=== PATIENT | male | born 1950 | race Caucasian/White ===

== ENCOUNTER 2025-02-28 02:26 | Observation (INO) | payer MEDICARE, OTHER, SELFPAY ==
[2025-02-28] VITALS (16 sets, daily range): BP systolic 89–102; BP diastolic 52–59; PULSE 80–100; RESP 16–20; TEMP 36.7–37.4; O2SAT 90–100; BMI 27.8
--- NOTE | 2025-02-28 02:32 | PC.NURSE ---
pt arrived to floor via stretcher from ED at 0231.
--- NOTE | 2025-02-28 03:13 | CA_ITS ---
APPROVED REPORT EXAM: Comprehensive 2D, Doppler, and color-flow Echocardiogram Male Infertility Specialist: BRITTANY Thomas, RVS Ht: 5 ft 8 in Wt: 183lbs BSA: 1.97 BP: 109/70 mmHg Indications: Pneumonia, CAD-CABG, S/P Fall, HTN,Lung CA, DINA Echo Enhancing Agent Comments: TDS: Patient sensitivity due Fall/ supine throughout exam 2D Dimensions IVSd 1.25 cm M: 0.6-1.2 LVEF (Visual) 50.50 % PWd 1.37 cm M: 0.6 - 1.2 LA Volume 58.60 mL LVDd 5.29 cm M: 4.2 - 5.9 LA Volume Index 29.785855 mL/m2 (M/F) 16-34 LVDs 3.92 cm M: 2.5 - 4.0 Left Atrium 4.52 cm M: 3.0 - 4.0 M-Mode Dimensions RVDd 1.57 cm (0.9-2.6) LA Diam 5.41 cm (1.9-4.0) LVDd 6.16 cm (3.5-5.7) LVDs 4.14 cm (3.5-5.7) IVSd 1.21 cm (0.6-1.1) PWd 1.13 cm (0.6-1.1) EF (Teich) 57.70% EPSs 1.05 cm FS 30.90% EDV (Teich) 179.30 mL TAPSE 1.12 (<1.7) ESV (Teich) 75.90 mL LV Diastology E Decel Time 197 (160-240 msec) E/A Ratio 0.72 MED A' 12.80 cm/s LAT A' 10.00 cm/s Aortic Valve BRYAN Index 0.90 cm2/m2 AoV Peak Jhon. 195.0 (50-130 cm/s) AO Peak GR. 15.20 mmHg AO Mean GR. 7.50 (<5 mmHg) AO VTI 32.0 (18-25 cm) BRYAN (VTI) 1.82 (2.5-4.5 cm2) Mitral Valve MV A Velocity 110.0 (40-130 cm/s) E/A Ratio 0.72 Tricuspid Valve TR P. Velocity 271.00 cm/s RAP Estimate 10.00 mmHg RVSP 39.40 mmHg Left Ventricle The left ventricle is normal size. Left ventricular systolic function is mildly reduced. There is increased left ventricular wall thickness. There is mild global hypokinesis present. There is moderate hypokinesis of the inferior and inferoseptal LV samano. Grade 1 diastolic dysfunction is present. LVEF is 45% Right Ventricle The right ventricle is normal size. The right ventricular systolic function is normal. Atria The left atrium is mildly dilated. The right atrium is mildly dilated. There is no color Doppler evidence of interatrial shunt. Aortic Valve The aortic valve is mildly thickened. There is no hemodynamically significant aortic valvular stenosis. Trace aortic regurgitation is present. Mitral Valve The mitral valve is mildly thickened. No evidence of mitral valve stenosis. Mild mitral regurgitation is present. Tricuspid Valve The tricuspid valve leaflets are thin and pliable. Mild tricuspid regurgitation. RVSP is 25-30 mmHg. Pulmonic Valve The pulmonary valve is grossly normal in structure. Trace pulmonic valve regurgitation is present. Great Vessels The aortic root is normal in size. IVC is normal in size and collapses >50% with inspiration. Pericardium There is no pericardial effusion. Other Information Study Quality: Fair Conclusion Mildly reduced LV systolic function (LVEF 45%). Moderate hypokinesis of the inferior and inferoseptal LV samano. Mild biatrial dilation. Mild MR, mild TR. Electronically signed by : Rachell Lopez MD 02/28/2025 15:46:01
--- NOTE | 2025-02-28 03:16 | XR_ITS ---
PROCEDURE INFORMATION: Exam: XR Chest Exam date and time: 02/28/2025 3:29 AM Age: 74 years old Clinical indication: Shortness of breath; HX of lung CA and surgery on right side; Additional info: SOB TECHNIQUE: Imaging protocol: Radiologic exam of the chest. Views: 1 view. COMPARISON: No prior studies were available at the time of this dictation. FINDINGS: Lungs: There is diminished aeration of the right lung field and evidence of prior right upper lobe pulmonary resection with apical opacity, mid to upper lung field suture line and right hilar surgical clips. Without comparison images, the chronicity of findings is unclear. Pleural spaces: Above-described right apical pleural thickening is likely postsurgical. No intrapleural air. Heart/Mediastinum: Cardiac silhouette not enlarged. Coronary artery calcification or stent. Rightward mediastinal displacement likely secondary to volume loss. Bones/joints: No acute fracture. Sternotomy wires. Degenerative disc disease. IMPRESSION: Probable right upper lobectomy postsurgical changes with right lung field volume loss. Can not exclude additional underlying component of increasing airspace consolidation or opacity. If comparison images become available, we would be happy to review them.
--- NOTE | 2025-02-28 03:20 | P.HP_ITS ---
<Statement entered by Darnell Woods MD - 03/01/25 15:10> Personally evaluated patient and agree with plan of care as outlined by the TELEVISION EQUIPMENT OPERATOR. History of Present Illness *Admission Date: 02/28/25 *Reason for visit:: Fall *History of present illness: This is a 74-year-old male who has a past medical history significant for heart disease, hypertension, coronary artery disease status post coronary artery bypass graft in 2014 with four-vessel involvement, obstructive sleep apnea, lung cancer status post right upper lobe lobectomy who presents from [facility] as a result of elevated troponin. Patient presented to [facility] due to a fall and during his evaluation while in [facility] he was noted to have upward trending troponins. His EKG without new findings of ST segment elevation or depression. Initially, patient was going to be transferred to his primary automatic tire tester at [facility] but they had no beds with telemetry; as a result, he was transition to [facility] for further management. During my evaluation of the patient, patient states he tripped and fell at home. Patient states he tripped over his feet and was unable to get up. He reports that he fell at approximately 1700 hrs. yesterday. He states he crawled to his front door and there was no one outside. Eventually after 4 hours (2100 hrs.), patient was able to get to his phone and call for help. He states he lives with his daughter and she was not home. Patient states he did not pass out just felt and was too weak to get up. He does complain of some left-sided rib pain and imaging obtained at [facility] shows patient has seventh rib fracture. Moreover, ER provider reports that CT scan findings showed a pneumonia. Per my independent read of the radiologist report it states he has a consolidation in the right Frederick healer posterior area favoring surgical removal. Patient does have a history of right upper lobe lobectomy due to lung cancer. He is currently denying any chest pain, lightheadedness, dizziness, near-syncope, syncope, blurred vision, double vision, headache, upper extremity weakness, lower extremity weakness, nausea, vomiting, shortness of breath, or dyspnea. Additional pertinent vitals obtained at [facility] include a white blood cell count of 13.5, neutrophils 84.7%, BUN 24, creatinine 1.4, troponin of 70 and then 140. EKG per my independent review shows a sinus tachycardia, QTc of 455, possible left ventricular hypertrophy, right axis deviation, and no ST segment or depression noted. [facility] Disclaimer: The information contained in this section may have been updated after the patient was seen, as this information can be updated by other users. Medical History (Updated 02/28/25 @ 03:29 by Juan Clark APRN) Rib fracture DINA (obstructive sleep apnea) Hypertension Heart disease Lung cancer Falls Surgical History (Updated 02/28/25 @ 02:41 by Renato Knutson RN) Stented coronary artery Hx of CABG S/P cholecystectomy S/P lobectomy of lung Social History Smoking Status: Unknown if ever smoked alcohol intake: never current occupational status: unemployed Travel in the last 8 weeks?: None Other Medical History Have you received the Flu Vaccine for this season: No Have you received the Pneumonia Vaccine: No Review of Systems Review of Systems Review of systems:: pertinent systems reviewed and negative unless documented below Constitutional Constitutional: Reports frequent falls Eyes Eyes: Reports system reviewed and no additional complaints, except as documented ENT Ears, Nose, Mouth, and Throat: Reports system reviewed and no additional complaints, except as documented *Cardiovascular Cardiovascular: Reports system reviewed and no additional complaints, except as documented *Respiratory Respiratory: Reports system reviewed and no additional complaints, except as documented *Gastrointestinal Gastrointestinal: Reports system reviewed and no additional complaints, except as documented *Genitourinary Genitourinary: Reports system reviewed and no additional complaints, except as documented *Musculoskeletal Musculoskeletal: Reports system reviewed and no additional complaints, except as documented Integumentary/Breasts Skin/Breast: Reports system reviewed and no additional complaints, except as documented *Neurologic Neurologic: Reports system reviewed and no additional complaints, except as documented and Reports frequent falls Psychiatric Psychiatric: Reports system reviewed and no additional complaints, except as documented Endocrine Endocrine: Reports system reviewed and no additional complaints, except as documented Hematologic/Lymphatic Hematologic/Lymphatic: Reports system reviewed and no additional complaints, exc ept as documented Allergic/Immunologic Allergic/Immunologic: Reports system reviewed and no additional complaints, except as documented Meds Home Medications and Allergies Home Medications ?Medication ?Instructions ?Recorded ?Confirmed ?Type aspirin 81 mg tablet,delayed 81 mg PO DAILY 02/28/25 0 02/28/25 History release atorvastatin 80 mg tablet 80 mg PO HS 02/28/25 5 History folic acid 1 mg tablet 1 mg PO DAILY 02/28/2502/28 History levocetirizine 5 mg tablet 5 mg PO HS 02/28/25 5 History methotrexate sodium 2.5 mg tablet 25 mg PO WEEKLY 02/0102/28/25 History metoprolol tartrate 25 mg tablet 12.5 mg PO BID 02/28/25 History nitroglycerin 0.4 mg sublingual 0.4 mg sublingual N EEDED PRN 02/28/25 02/28/25 History tablet Chest Pain sulfamethoxazole 800 1 tab PO BID 02/28/25 History mg-trimethoprim 160 mg tablet New Prescriptions to Start Prescriptions: Allergies Allergy/AdvReac Type Severity Reaction Status Date / Time No Known Allergies Allergy Verified 02/28/25 02:41 Exam Data for Last 24 hours Vital signs and Labs for Last 24 Hours: O2 Del Method Room Air 02/28/25 03:00 I & O for Last 24 hours: Intake & Output 02/25/25 02/26/25 02/27/25 02/28/25 23:59 23:59 23:59 23:59 Weight 83.1 kg Constitutional Constitutional: no acute distress and cooperative *Routine HEENT Exam Head: Present normocephalic and atraumatic Eye: Present EOMI ENT: Present mucous membranes moist *Routine Neck Exam Neck: Present supple, full ROM and trachea midline Routine Chest/Breast/Axilla Exam Chest wall: Present tenderness *Routine Respiratory Exam Respiratory: Present CTA bilaterally, normal respiratory effort, able to speak in complete sentences and symmetric chest movement *Routine Cardiovascular Exam Cardiovascular: Present RRR, Normal S1 and Normal S2 *Routine Abdominal Exam Abdominal: Present soft and normoactive bowel sounds *Routine Rectal Exam Rectal:: deferred *Routine Genitalia Exam Genitalia:: deferred *Routine Extremities Exam Extremities: Present full ROM, pulses intact and normal capillary refill Routine Back/Spine/Pelvis Exam Back/Spine: Present full ROM *Routine Skin Exam Skin: Present intact, dry, warm and normal turgor *Routine Neurological Exam Neurological: Present alert, oriented X3, CN II-XII intact and moving all extremities Routine Psychiatric Exam Psychiatric: Present normal affect, normal thought process, cooperative, good insight and good judgment H&P: Result Impressions This is a 74-year-old male who presents from [facility] after he sustained a fall at home. Patient has known coronary artery disease with prior coronary artery bypass and graft with four-vessel involvement and has rising troponins with no evidence of ST segment [place] which was concerning for NSTEMI. CT scan findings were initially read as possible pneumonia in the right upper lobe. Assessment and Plan *Assessment and plan (1) Pneumonia: Status: Acute Qualifiers: Pneumonia type: due to unspecified organism Laterality: right Lung location: upper lobe of lung Qualified Code(s): J18.9 - Pneumonia, unspecified organism Category: Medical Code(s): J18.9 - Pneumonia, unspecified organism (2) NSTEMI (non-ST elevated myocardial infarction): Status: Acute Category: Medical Code(s): I21.4 - Non-ST elevation (NSTEMI) myocardial infarction (3) Chest wall trauma: Status: Acute Category: Medical Code(s): S29.9XXA - Unspecified injury of thorax, initial encounter (4) Leukocytosis: Status: Acute Qualifiers: Leukocytosis type: unspecified Qualified Code(s): D72.829 - Elevated white blood cell count, unspecified Category: Medical Code(s): D72.829 - Elevated white blood cell count, unspecified Plan Assessment: NSTEMI - Patient did receive 325 mg of aspirin x 1 - Will continue 81 mg of aspirin daily -Will consult cardiology - Will obtain stat troponin and if still upward trending will therapeutically dosed patient with Lovenox - Obtain 2D echo - If troponin continues to trend upward will also obtain repeat EKG Pneumonia: Most likely community-acquired Leukocytosis with left shift - Not sure that patient has pneumonia. CT scan findings are showing a possible right Frederick heel R posterior consolidation is most likely consistent with surgical removal - Will continue 1 g Rocephin IV daily coupled with 250 mg azithromycin daily; patient received a dose of Rocephin and 500 mg azithromycin while at [facility] - Will obtain procalcitonin - Will repeat patient's chest x-ray -If there is no pneumonia more than likely patient's leukocytosis is in the setting of neutrophilia from trauma and more than likely will downward trend in 8 hours Mechanical fall with minor trauma - Patient did sustain 7th rib fracture -There is no evidence of flail chest, so we will treat rib fracture conservatively -Fall precautions -Physical therapy -Occupational Therapy -Will give 2 mg of morphine IV push every 4 hours as needed severe pain and 5 mg [place] p.o. every 4 hours bear moderate pain -Incentive spirometer every 4 hours while awake Plan: Admit patient to the MedSurg unit on telemetry Daily weight Saline lock Vital signs every 4 hours Keep patient n.p.o. until evaluated by automatic tire tester CBC/BMP daily Obtain CMP, CPK, lactic acid, procalcitonin, magnesium, and trend troponins every 6 hours x 2 40 mg Lovenox subcu daily for DVT prophylaxis 4 mg Zofran IV push every 8 hours. Nausea vomiting/blood cultures x 2 DNI I will discuss this case with attending physician Dr. Woods and a look forward to more input
[2025-02-28 06:46] LABS: Hematocrit 41.8 % (42.0-52.0); Hemoglobin 14.1 g/dL (14.1-18.0); Immature Granulocytes % 1.8 %; Mean Corpuscular HGB Conc 33.7 g/dL (31.8-35.4); Mean Corpuscular Hemoglobin 33.6 pg (27.0-31.2); Mean Corpuscular Volume 99.5 fl (80-94); Nucleated Red Blood Cells % 0 %; Platelet Count 149 K/mm3 (142-424); Red Blood Count 4.20 M/mm3 (4.60-6.20); Red Cell Distribution Width-SD 53.1 fL; White Blood Count 12.5 K/mm3 (4.8-10.8)
[2025-02-28 07:01] LABS: Albumin Level 3.8 g/dl (3.5-5.0); Chloride 105 mmol/L (98-107); Potassium 4.3 mmoL/L (3.5-5.1); Sodium 136 mmol/L (136-145)
[2025-02-28 07:04] LABS: Alanine Aminotransferase 25 U/L (12-78); Albumin/Globulin Ratio 1.5 (1.1-1.8); Alkaline Phosphatase 69 U/L (38-126); Anion Gap 7.3 mEq/L (5-15); Aspartate Amino Transferase 47 U/L (17-59); Bilirubin,Total 0.8 mg/dl (0.2-1.3); Blood Urea Nitrogen 20 mg/dl (9-20); Calcium 8.3 mg/dl (8.4-10.2); Carbon Dioxide 28 mmol/L (22.0-30.0); Creatine Kinase 272 U/L (55-170); Creatinine Clearance Estimated 63 mL/min (50-200); Creatinine,Serum 1.20 mg/dl (0.66-1.25); Estimated Glomerular Filt Rate 59 ml/min (>60); GFR (African American) 71 ML/MIN (>60); Globulin 2.5 g/dL (1.3-3.2); Glucose 106 mg/dl (74-100); Magnesium 1.6 mg/dl (1.6-2.3); Total Protein,Serum 6.3 g/dl (6.3-8.2)
[2025-02-28 07:11] LABS: Troponin I 0.12 ng/ml (0.00-0.034)
[2025-02-28 07:46] LABS: Procalcitonin 0.233 ng/mL (0.0-2.0)
--- NOTE | 2025-02-28 08:04 | EXP.CARD.CON ---
History of Present Illness History of Present Illness Consult date: 02/28/25 Requesting physician: Darnell Woods Chief complaint: Trip and fall History of present illness: Cruz Wray is a 74-year-old white male with a past medical history of coronary artery disease status post bypass in 2013, hypertension, lung cancer status post right upper lobe lobectomy who presented from [facility] for elevated troponin. Patient reports he was in his usual state of health when he tripped and fell at home. He reports that he was too weak to be able to get up off of the floor. Eventually after 4 hours of being on the floor he was able to get to his phone and call for help. Imaging from [facility] shows a fracture to the seventh rib on the left side as well as CT scan findings concerning for pneumonia. High-sensitivity troponin was 70 and creatinine was 1.4. Patient usually sees cardiology at [facility] however he was transferred here due to no beds at [facility]. On examination patient is complaining of left rib pain with movement and palpation. He denies chest pain, dizziness, shortness of breath or weakness. Initial labs at [facility] are as follow: WBC 12.5, hemoglobin 14.1, sodium 136, potassium 4.3, creatinine 1.2, total CK2 172 and troponin 0.12. Repeat chest x-ray here shows a probable right upper lobectomy postsurgical changes with right lung field volume loss cannot exclude additional underlying component of increasing airspace consolidation or opacity. Echocardiogram is pending. [facility] Disclaimer: The information contained in this section may have been updated after the patient was seen, as this information can be updated by other users. Medical History (Updated 02/28/25 @ 03:29 by Juan Clark APRN) Rib fracture DINA (obstructive sleep apnea) Hypertension Heart disease Lung cancer Falls Surgical History (Updated 02/28/25 @ 02:41 by Renato Knutson RN) Stented coronary artery Hx of CABG S/P cholecystectomy S/P lobectomy of lung Social History (Updated 02/28/25 @ 03:36 by Juan Clark APRN) Smoking Status: Unknown if ever smoked alcohol intake: never current occupational status: unemployed Travel in the last 8 weeks?: None Review of Systems Review of Systems Review of systems:: pertinent systems reviewed and negative unless documented below Constitutional Constitutional: Reports frequent falls and Reports weakness *Neurologic Neurologic: Reports system reviewed and no additional complaints, except as documented, Reports frequent falls and Reports weakness Exam Data for Last 24 hours Vital signs and Labs for Last 24 Hours: Temp Pulse Resp BP Pulse Ox O2 Del Method 98.1 F 100 H 17 101/59 L 90 L Room Air 02/28/25 03:59 02/28/25 04:00 02/28/25 03:59 02/28/25 03:59 02/28/25 03:59 02/28/25 06:24 Laboratory Results - last 24 hr 02/28/25 06:20: WBC 12.5 H, RBC 4.20 L, Hgb 14.1, Hct 41.8 L, MCV 99.5 H, MCH 33.6 H, MCHC 33.7, RDW 14.7, Plt Count 149, MPV 10.3, Neut % (Auto) 78.1, Lymph % (Auto) 10.6, [place] % (Auto) 9.3, Eos % (Auto) 0.1, Baso % (Auto) 0.1, Neut # (Auto) 9.8 H, Lymph # (Auto) 1.3, [place] # (Auto) 1.2 H, Eos # (Auto) 0.0, Baso # (Auto) 0.0, Sodium 136, Potassium 4.3, Chloride 105, Carbon Dioxide 28, Anion Gap 7.3, BUN 20, Creatinine 1.20, Estimated Creat Clear 63, Estimated GFR 59, Est GFR ( Amer) 71, Glucose 106 H, Lactate 1.0, Calcium 8.3 L, Magnesium 1.6, Total Bilirubin 0.8, AST 47, ALT 25, Alkaline Phosphatase 69, Total Creatine Kinase 272 H, Troponin I 0.12 H, Total Protein 6.3, Albumin 3.8, Globulin 2.5, Albumin/Globulin Ratio 1.5, Procalcitonin 0.233 I & O for Last 24 hours: Intake & Output 02/25/25 02/26/25 02/27/25 02/28/25 23:59 23:59 23:59 23:59 Weight 183 lb 12.8 oz Constitutional Constitutional: no acute distress *Routine Respiratory Exam Respiratory: Present CTA bilaterally and symmetric chest movement *Routine Cardiovascular Exam Cardiovascular: Present RRR, Normal S1 and Normal S2 *Routine Abdominal Exam Abdominal: Present soft and normoactive bowel sounds; Absent tenderness *Routine Extremities Exam Extremities: Present full ROM and normal capillary refill; Absent edema *Routine Skin Exam Skin: Present intact, dry and warm Detailed Neck Exam: Thyroids Thyroid: Absent bruit Meds Home Medications and Allergies Home Medications ?Medication ?Instructions ?Recorded ?Confirmed ?Type aspirin 81 mg tablet,delayed 81 mg PO DAILY 02/28/25 02/28/25 History release atorvastatin 80 mg tablet 80 mg PO HS 02/28/25 02/28/25 History folic acid 1 mg tablet 1 mg PO DAILY 02/28/25 02/28/25 History levocetirizine 5 mg tablet 5 mg PO HS 02/28/25 02/28/25 History methotrexate sodium 2.5 mg tablet 25 mg PO WEEKLY 02/28/25 02/28/25 History metoprolol tartrate 25 mg tablet 12.5 mg PO BID 02/28/25 02/28/25 History nitroglycerin 0.4 mg sublingual 0.4 mg sublingual Q5MINP PRN Chest 02/28/25 02/28/25 History tablet Pain sulfamethoxazole 800 1 tab PO BID 02/28/25 02/28/25 History mg-trimethoprim 160 mg tablet New Prescriptions to Start Prescriptions: Allergies Allergy/AdvReac Type Severity Reaction Status Date / Time No Known Allergies Allergy Verified 02/28/25 02:41 Assessment and Plan *Assessment and plan (1) Leukocytosis: Status: Acute Qualifiers: Leukocytosis type: unspecified Qualified Code(s): D72.829 - Elevated white blood cell count, unspecified Category: Medical Code(s): D72.829 - Elevated white blood cell count, unspecified (2) Chest wall trauma: Status: Acute Category: Medical Code(s): S29.9XXA - Unspecified injury of thorax, initial encounter (3) NSTEMI (non-ST elevated myocardial infarction): Status: Acute Category: Medical Code(s): I21.4 - Non-ST elevation (NSTEMI) myocardial infarction (4) Pneumonia: Status: Acute Qualifiers: Laterality: right Lung location: upper lobe of lung Pneumonia type: due to unspecified organism Qualified Code(s): J18.9 - Pneumonia, unspecified organism Category: Medical Code(s): J18.9 - Pneumonia, unspecified organism Plan Coronary artery disease present Status post bypass NSTEMI Patient denies chest pain or shortness of breath. Elevated high-sensitivity troponin of 70-140 Troponin here 0.12 Echocardiogram is pending Continue aspirin and statin Mechanical fall Left rib pain and fracture Possible pneumonia Defer to hospitalist CV summary 02/28/2025: Echocardiogram is pending. Will proceed with left heart catheterization to further evaluate coronary artery disease.
--- NOTE | 2025-02-28 08:20 | HMH.PHAINT1 ---
Pharmacy Intervention Comments: MEDICATION RECONCILIATION COMPLETED ON PATIENT USING EXTERNAL FILL HISTORY FROM PHARMACY. -LINCOLN GARVIN, TJD
--- NOTE | 2025-02-28 08:59 | IR_ITS ---
APPROVED REPORT Patient Location: Inpatient PROCEDURES Left heart catheterization Left ventriculogram Selective coronary angiogram Selective engagement of the left internal mammary artery to the LAD Selective engagement of the saphenous vein graft to the circumflex artery Selective engagement of the saphenous vein graft to the right coronary artery INDICATION Acute non-ST elevation myocardial infarction, Syncope, History of coronary bypass surgery Informed consent was obtained prior to the procedure. COMPLICATIONS NONE Estimated Blood Loss: LESS THAN 10 ML TECHNIQUE One percent lidocaine used to anesthetize the right groin. The right femoral artery was accessed via the Seldinger technique and a 5 Italian sheath was placed in the right femoral artery. A JL 4, JR4 catheter were used to perform left heart catheterization, left ventriculogram selective coronary angiography as well as selective engagement of the 2 vein grafts and the left internal mammary artery. At the end of the procedure the patient was transferred to the postop holding area in stable condition for sheath removal. ANGIOGRAPHIC RESULTS The left main artery Normal The left anterior descending artery Has proximal and mid vessel 80% stenoses. It gives rise to a small first diagonal artery. There is competitive flow from the left internal mammary artery The circumflex artery Nondominant. Both 1st and 2nd obtuse marginal arteries are ostially occluded. A small true circumflex artery runs in the AV groove with no obtuse marginal arteries The right coronary artery Most likely dominant with proximal 70 and mid vessel 90% stenosis. That gives rise to an RV marginal branch which is accompanied by FLOWER II flow. The distal right coronary artery is subtotally occluded The HERRON ventriculogram reveals Ejection fraction 45% with inferior wall hypokinesis The left ventricular end-diastolic pressure 10 mmHg EATON to LAD widely patent Saphenous vein graft to the circumflex system is a skip graft. The first limb to the first obtuse marginal artery is widely patent as is the skip graft to the second obtuse marginal artery Saphenous to the posterior sending artery proximally occluded IMPRESSION Coronary artery disease as described above Inferior wall regional wall motion abnormality accompanied by occluded council right coronary artery and saphenous vein graft supplying the right coronary artery Reduced ejection fraction with regional wall motion abnormality Normal LVEDP Patent EATON to LAD Patent saphenous vein graft skipping to first and then second obtuse marginal artery PLAN 1. Standard therapy for ischemic heart disease 2. Recommend 30-day event monitor given the fall. This may still have been syncope 3. LDL less than 55 to be achieved with high intensity statin 4. Formal echocardiogram 5. Follow-up in cardiology clinic and consider loop recorder if clinically appropriate Electronically signed by : Arsen Corea MD 02/28/2025 13:00:51
--- NOTE | 2025-02-28 09:08 | PC.NURSE ---
Home Medications Cruz Wray aspirin 81 mg tablet,delayed release 81 mg PO DAILY 02/28/25 [History Confirmed 02/28/25] atorvastatin 80 mg tablet 80 mg PO HS 02/28/25 [History Confirmed 02/28/25] folic acid 1 mg tablet 1 mg PO DAILY 02/28/25 [History Confirmed 02/28/25] levocetirizine 5 mg tablet 5 mg PO HS 02/28/25 [History Confirmed 02/28/25] methotrexate sodium 2.5 mg tablet 25 mg PO WEEKLY 02/28/25 [History Confirmed 02/28/25] metoprolol tartrate 25 mg tablet 12.5 mg PO BID 02/28/25 [History Confirmed 02/28/25] nitroglycerin 0.4 mg sublingual tablet 0.4 mg sublingual Q5MINP PRN Chest Pain 02/28/25 [History Confirmed 02/28/25] sulfamethoxazole 800 mg-trimethoprim 160 mg tablet 1 tab PO BID 02/28/25 [History Confirmed 02/28/25] Active Medications Acetaminophen (Acetaminophen 325mg Tab) 650 mg PO Q4HP PRN PRN Reason: Fever or Mild Pain (1-3) Stop: 03/30/25 03:12 Hydrocodone Bitart/Acetaminophen (Hydrocodone/Apap 5/325 Mg Tablet) 1 tab PO Q4HP PRN PRN Reason: Mild to Moderate Pain (1-6) Stop: 03/30/25 03:12 Aspirin (Aspirin 81mg Chewable Tablet) 81 mg PO DAILY [facility] Stop: 03/31/25 08:59 Diazepam (Diazepam 5mg Tablet) 5 mg PO ONCE PRN PRN Reason: Anxiety Stop: 02/28/25 20:53 Enoxaparin Sodium (Enoxaparin 40mg/0.4ml Syringe) 40 mg SUBCUT DAILY [facility] Stop: 03/30/25 08:59 Last Admin: 02/28/25 09:04 Dose: Not Given Ceftriaxone Sodium 1 gm/ (Sodium Chloride) 50 mls @ 100 mls/hr IV Q24H [facility] Stop: 03/11/25 08:59 Azithromycin 500 mg/ Sodium (Chloride) 250 mls @ 250 mls/hr IV Q24H [facility] Stop: 03/11/25 08:59 Morphine Sulfate (Morphine 2mg/Ml Syringe) 2 mg IV Q4HP PRN PRN Reason: Severe Pain (7-10) Stop: 03/30/25 03:12 Ondansetron HCl (Ondansetron 4mg/2ml Vial) 4 mg IV Q8HP PRN PRN Reason: Nausea Stop: 03/30/25 03:12 Sodium Chloride (Sodium Chloride 0.9% 10ml Flush Syringe) 10 ml IV NEEDED PRN PRN Reason: Maintain IV Site Stop: 03/30/25 03:12 Sodium Chloride (Sodium Chloride 3% 15ml Neb) 3 ml IH ONCE PRN PRN Reason: INDUCE SPUTUM COLLECTION Stop: 03/30/25 07:48 Sodium Chloride (Sodium Chloride 0.9% 10ml Vial) 10 ml IV NEEDED PRN PRN Reason: to Dilute Lorazepam inj Stop: 03/30/25 08:52
--- NOTE | 2025-02-28 09:18 | HMH.OTEV ---
OT Inpatient Evaluation Rehab OT IP Evaluation Start: 02/28/25 03:13 Freq: ONCE Status: Active Protocol: Document 02/28/25 09:14 MATEO (Rec: 02/28/25 09:17 [place] [id number]) Rehab OT IP Assessment Subjective History Pt oriented x 2 on arrival. Pt agreeable to engage in therapy evaluation. Pt admitted on 02/28/25 due to fall at home and PNA. History and physical: This is a 74-year-old male who has a past medical history significant for heart disease, hypertension, coronary artery disease status post coronary artery bypass graft in 2013 with four-vessel involvement, obstructive sleep apnea, lung cancer status post right upper lobe lobectomy who presents from [facility] as a result of elevated troponin. Patient presented to [facility] due to a fall and during his evaluation while in [facility] he was noted to have upward trending troponins. His EKG without new findings of ST segment elevation or depression. Initially, patient was going to be transferred to his primary decision unit rn at [facility] but they had no beds with telemetry; as a result , he was transition to [facility] for further management. During my evaluation of the patient, patient states he tripped and fell at home. Patient states he tripped over his feet and was unable to get up. He reports that he fell at approximately 1700 hrs. yesterday. He states he crawled to his front door and there was no one outside. Eventually after 4 hours (2100 hrs.), patient was able to get to his phone and call for help. He states he lives with his daughter and she was not home. Patient states he did not pass out just felt and was too weak to get up. He does complain of some left -sided rib pain and imaging obtained at [facility] shows patient has seventh rib fracture. Moreover, ER provider reports that CT scan findings showed a pneumonia. Per my independent read of the radiologist report it states he has a consolidation in the right Frederick healer posterior area favoring surgical removal. Patient does have a history of right upper lobe lobectomy due to lung cancer. He is currently denying any chest pain, lightheadedness, dizziness, near- syncope, syncope, blurred vision, double vision, headache, upper extremity weakness, lower extremity weakness, nausea, vomiting, shortness of breath, or dyspnea. Additional pertinent vitals obtained at [facility] include a white blood cell count of 13.5 , neutrophils 84.7%, BUN 24, creatinine 1.4, troponin of 70 and then 140. EKG per my independent review shows a sinus tachycardia, QTc of 455, possible left ventricular hypertrophy, right axis deviation, and no ST segment or depression noted. Subjective Prior to being in the hospital, pt lived with his daughter. Pt claims he is normally independent with all ADLs. He is dependent upon his daughter for completion of all IADLs. He does not use a rolling walker or cane during functional transfers. Pt is left home alone while daughter works. Pt claims he still drives. Objective Patient Orientation Person,Birthday Right Upper Min Limitation <25% Extremity Gross ROM Left Upper Extremity Min Limitation <25% Gross ROM Shoulder ROM Muscle Weakness Limitations Elbow ROM Muscle Weakness Limitations Wrist Limitations of Muscle Weakness Range of Motion Bed Mobility bed mobility-scooting,bed mobility - supine/sit Assist Level Maximum x 2 (75% assist) Transfer Training Sit/Stand/Pivot Transfer Assist Level Maximum x 2 (75% assist) Rehab OT IP prob,goals,plan Problems Date of Evaluation: 02/28/25 OT IP Problems Bed Mobility,Transfers,Balance,Self care Rehab Potential Rehab Potential Good Equipment Needs Assistive Devices Rolling / Wheeled Walker Plan OT intervention Plan Bed Mobility,Transfers,Balance,Self care,Safety, Therapeutic Exercise OT Plan Frequency Daily Duration LOS Discharge Goals Bed Mobility Ability Assistance x1 Sit to Stand Chair Maximum x 1 (75% assist) Transfer Ability Chair Transfer Maximum x 1 (75% assist) Ability Chair Transfer Sit to/from Ambulatory Technique Chair Transfer Rolling Walker Assistive Devices Lower Body Dressing Moderate Assistance Ability Upper Body Dressing Minimal Assistance Ability Performing Toilet Minimal Assistance Hygiene Ability Overall Commode/ Maximum Assistance Toilet Transfer Ability Commode/Toilet Sit to/from Ambulatory Transfer Technique Discharge Plan OT Discharge Plan Pt will continue to be seen for OT services while at [facility]. At this time, pt would benefit most from short term rehab at [facility] following discharge. Continued skilled therapy is important in order for patient to improve strength, safety, endurance, ADL independence, and functional transfers to reach OF. Eval Complexity Eval Charge Codes 84983 - Moderate Complexity PHYSICIAN CERTIFICATION: I certify the specified therapy services for Cruz Ray Wray are required, authorized, and reviewed every 30 days.
--- NOTE | 2025-02-28 09:20 | HMH.PTEV ---
Physical Therapy Evaluation Rehab PT IP Evaluation Start: 02/28/25 03:13 Freq: ONCE Status: Active Protocol: Document 02/28/25 09:00 OLYA (Rec: 02/28/25 09:20 OLYA [id number]) Subjective/History History History Per H&P: This is a 74-year-old male who has a past medical history significant for heart disease, hypertension, coronary artery disease status post coronary artery bypass graft in 2013 with four-vessel involvement, obstructive sleep apnea, lung cancer status post right upper lobe lobectomy who presents from [facility] as a result of elevated troponin. Patient presented to [facility] due to a fall and during his evaluation while in [facility] he was noted to have upward trending troponins. His EKG without new findings of ST segment elevation or depression. Initially, patient was going to be transferred to his primary regional manager at [facility] but they had no beds with telemetry; as a result , he was transition to [facility] for further management. During my evaluation of the patient, patient states he tripped and fell at home. Patient states he tripped over his feet and was unable to get up. He reports that he fell at approximately 1700 hrs. yesterday. He states he crawled to his front door and there was no one outside. Eventually after 4 hours (2100 hrs.), patient was able to get to his phone and call for help. He states he lives with his daughter and she was not home. Patient states he did not pass out just felt and was too weak to get up. He does complain of some left -sided rib pain and imaging obtained at [facility] shows patient has seventh rib fracture. Moreover, ER provider reports that CT scan findings showed a pneumonia. Per my independent read of the radiologist report it states he has a consolidation in the right Frederick healer posterior area favoring surgical removal. Patient does have a history of right upper lobe lobectomy due to lung cancer. He is currently denying any chest pain, lightheadedness, dizziness, near- syncope, syncope, blurred vision, double vision, headache, upper extremity weakness, lower extremity weakness, nausea, vomiting, shortness of breath, or dyspnea. Additional pertinent vitals obtained at [facility] include a white blood cell count of 13.5 , neutrophils 84.7%, BUN 24, creatinine 1.4, troponin of 70 and then 140. EKG per my independent review shows a sinus tachycardia, QTc of 455, possible left ventricular hypertrophy, right axis deviation, and no ST segment or depression noted. Subjective Subjective Pt oriented to name and bday. Pt reports he lives with his daughter in a single-story home with 1 HANK. Pt is normally IND with functional mobility without AD use. Pt still driving. New diagnosis of No cancer in past 12 months? [facility] How much help from another person do you currently need... Turning from your A lot back to your side while in a flat bed without using bedrails? Moving from lying on A lot back to sitting on the side of a flat bed without using bedrails? Moving to and from a A lot bed to a chair ( including a wheelchair)? Standing up from a A lot chair using your arms? (e.g., wheelchair, bedside chair) Walking in hospital A lot room? Climbing 3-5 steps A lot with a railing? Mobility Score 12 Mobility Level [facility] Mobility 4 Move to chair/commode Mobility Calculator Rehab PT IP Eval Objective Appearance Patient Behavior Appropriate,Cooperative Patient Orientation Person,Situation Difficulty following mild instructions Speech Pattern Soft-Spoken Ambulation Patient Able to No Ambulate Balance Ability to Arise Able, uses arms to help Sitting Balance Steady, safe Standing Balance Unsteady Dynamic Sitting Good Balance Ability Dynamic Standing Poor Balance Ability Transfers Bed Transfer Ability Maximum x 2 (75% assist) Sit to Stand Bed Maximum x 2 (75% assist) Transfer Ability Rehab PT IP prob,goals,plan Problems Date of Evaluation: 02/28/25 PT IP Problems Bed Mobility,Transfers,Gait,Balance,Self care,Safety Rehab Potential Rehab Potential Good Plan PT Intervention Plan Bed Mobility,Transfers,Gait,Balance,Self care,Safety, Therapeutic Exercise Other Intervention 1-2 times Plan PT Plan Frequency Daily Duration LOS Discharge Goals Bed Transfer Ability Moderate x 1 (50% assist) Sit to Stand Chair Moderate x 1 (50% assist) Transfer Ability Discharge Plan PT Discharge Plan Initial physical therapy evaluation performed. Patient presents below baseline at this time in functional mobility, transfers, and strength. Pt not safe to return home at this time d/t current level of functional mobility. PT recommending inpatient rehabilitation placement upon d/c from [facility]. Pt would benefit from skilled PT while at [facility] to prevent further functional decline and maximize safety with mobility. Eval Complexity Eval Charge Codes 76456 - Moderate Complexity PHYSICIAN CERTIFICATION: I certify the specified therapy services for Cruzwes Cohenris are required, authorized, and reviewed every 30 days.
[2025-02-28 10:01] LABS: Thyroid Stimulating Hormone 0.64 uIU/mL (0.465-4.68)
--- NOTE | 2025-02-28 10:11 | PC.NURSE ---
Pt. off the floor to record label intern.
[2025-02-28 10:20] LABS: Vitamin B12 711 pg/mL (239-931)
[2025-02-28 10:37] LABS: Folate 9.68 ng/mL
[2025-02-28] MEDS: HEPARIN 1,000 UNITS/500ML NS (CATH LAB) 3000 UNIT IV (10:40)
[2025-02-28] MEDS: LIDOCAINE 1% 10ML MDV 10 ML IJ (10:40)
[2025-02-28] MEDS: 0.9 % SODIUM CHLORIDE 500 ML 25 ML IV (10:41)
[2025-02-28] MEDS: MIDAZOLAM HCL 1MG/ML 5ML VIAL 1 MG IV (10:52)
[2025-02-28] MEDS: FENTANYL 100MCG/2ML VIAL 50 MCG IV (10:53)
--- NOTE | 2025-02-28 11:22 | PC.NURSE ---
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
--- NOTE | 2025-02-28 11:49 | SW/DCPLANNER ---
Addendum entered by Mely Merino 02/28/25 15:26: [facility] has accepted patient. Gosia BRITTNI Flower Cheniller Addendum entered by Mely Merino 02/28/25 14:11: Spoke with patient regarding home health services once he is medically stable and ready for discharge. Patient stated that he is interested and that he does not have a preference in what agency i send his information to. I faxed the patient's information to [facility] and will update once i hear back. Gosia BRITTNI Flower Cheniller Addendum entered by Roeslia Flynn 02/28/25 13:52: Patient/family have decided to return home w/ home health services. I have updated Tanya pike/ Ophelia Gage. CM will follow up w/ patient and family regarding home health services. Addendum entered by Roselia Flynn 02/28/25 12:35: [facility] has accepted this patient. I have updated patient, family and Dr Woods. Original Note: I spoke w/ patient and his daughter regarding plans once medically stable for discharge. PT/OT evaluated patient and recommended SNF level of care. I explained to patient and his daughter that placement is recommended but private pay would be required. Patient is agreeable to private pay placement and prefers [facility]. I will fax patient information to Tanya pike/ Ophelia Gage this AM. Patient also stated that if [facility] is unable to accept he would be agreeable to [place]. Per MD patient is medically stable for discharge today. I will continue to follow up.
[2025-02-28] MEDS: IOPAMIDOL-370 (76%);100ML BOTTLE 40 ML IV (12:30)
--- NOTE | 2025-02-28 13:08 | EXP.DC.SUM ---
General Admission date:: 02/28/25 HPI HPI HPI: This is a 74-year-old male who has a past medical history significant for heart disease, hypertension, coronary artery disease status post coronary artery bypass graft in 2014 with four-vessel involvement, obstructive sleep apnea, lung cancer status post right upper lobe lobectomy who presents from [facility] as a result of elevated troponin. Patient presented to [facility] due to a fall and during his evaluation while in [facility] he was noted to have upward trending troponins. His EKG without new findings of ST segment elevation or depression. Initially, patient was going to be transferred to his primary network relations consultant at [facility] but they had no beds with telemetry; as a result, he was transition to [facility] for further management. During my evaluation of the patient, patient states he tripped and fell at home. Patient states he tripped over his feet and was unable to get up. He reports that he fell at approximately 1700 hrs. yesterday. He states he crawled to his front door and there was no one outside. Eventually after 4 hours (2100 hrs.), patient was able to get to his phone and call for help. He states he lives with his daughter and she was not home. Patient states he did not pass out just felt and was too weak to get up. He does complain of some left-sided rib pain and imaging obtained at [facility] shows patient has seventh rib fracture. Moreover, ER provider reports that CT scan findings showed a pneumonia. Per my independent read of the radiologist report it states he has a consolidation in the right Frederick healer posterior area favoring surgical removal. Patient does have a history of right upper lobe lobectomy due to lung cancer. He is currently denying any chest pain, lightheadedness, dizziness, near-syncope, syncope, blurred vision, double vision, headache, upper extremity weakness, lower extremity weakness, nausea, vomiting, shortness of breath, or dyspnea. Additional pertinent vitals obtained at [facility] include a white blood cell count of 13.5, neutrophils 84.7%, BUN 24, creatinine 1.4, troponin of 70 and then 140. EKG per my independent review shows a sinus tachycardia, QTc of 455, possible left ventricular hypertrophy, right axis deviation, and no ST segment or depression noted. Hospital Course Hospital Course Hospital Course: Cruz Wray is a 74-year-old male who presented as a transfer from [facility] with an NSTEMI after a fall. #NSTEMI, type II #History of CABG, CAD #Hypertension ? Troponin peaked at 0.12, EKG without acute ischemic changes. Patient does report left-sided rib pain that is reproducible with palpation. No evidence of fracture on imaging. ? Cardiology consulted, s/p C without occlusive disease. No stents required. ? Continue home aspirin 81 mg, atorvastatin 80 mg. ? Hold home metoprolol tartrate 12.5 mg twice daily due to soft pressures, could have contributed to fall. ? Folate, vitamin B12, TSH normal. #Possible pneumonia ? CXR suggests possible right upper lobe pneumonia, compounded by lobectomy. Treated with ceftriaxone, azithromycin. ? Given fall, mild leukocytosis advised patient to continue home Bactrim for total of 7 days. #Fall #Physical deconditioning ? PT OT recommended SNF, family preferred home with home health. ? Hold home metoprolol tartrate 12.5 mg twice daily due to soft pressures, could have contributed to fall. Exam Data for Last 24 hours Vital signs and Labs for Last 24 Hours: Temp Pulse Resp BP Pulse Ox O2 Del Method O2 Flow Rate 99.4 F 87 17 94/53 L 90 L Nasal Cannula 2 02/28/25 12:15 02/28/25 12:15 02/28/25 12:15 02/28/25 12:15 02/28/25 12:15 02/28/25 12:40 02/28/25 12:40 Laboratory Results - last 24 hr 02/28/25 06:12: Vitamin B12 711, Folate 9.68, TSH 0.64 02/28/25 06:20: WBC 12.5 H, RBC 4.20 L, Hgb 14.1, Hct 41.8 L, MCV 99.5 H, MCH 33.6 H, MCHC 33.7, RDW 14.7, Plt Count 149, MPV 10.3, Neut % (Auto) 78.1, Lymph % (Auto) 10.6, Fisher % (Auto) 9.3, Eos % (Auto) 0.1, Baso % (Auto) 0.1, Neut # (Auto) 9.8 H, Lymph # (Auto) 1.3, Fisher # (Auto) 1.2 H, Eos # (Auto) 0.0, Baso # (Auto) 0.0, Sodium 136, Potassium 4.3, Chloride 105, Carbon Dioxide 28, Anion Gap 7.3, BUN 20, Creatinine 1.20, Estimated Creat Clear 63, Estimated GFR 59, Est GFR ( Amer) 71, Glucose 106 H, Lactate 1.0, Calcium 8.3 L, Magnesium 1.6, Total Bilirubin 0.8, AST 47, ALT 25, Alkaline Phosphatase 69, Total Creatine Kinase 272 H, Troponin I 0.12 H, Total Protein 6.3, Albumin 3.8, Globulin 2.5, Albumin/Globulin Ratio 1.5, Procalcitonin 0.233 I & O for Last 24 hours: Intake & Output 02/25/25 02/26/25 02/27/25 02/28/25 23:59 23:59 23:59 23:59 Weight 83.37 kg Constitutional Constitutional: no acute distress *Routine HEENT Exam Head: Present normocephalic Eye: Present EOMI and PERRL ENT: Present mucous membranes moist *Routine Neck Exam Neck: Present supple; Absent lymphadenopathy *Routine Respiratory Exam Respiratory: Present CTA bilaterally *Routine Cardiovascular Exam Cardiovascular: Present RRR *Routine Abdominal Exam Abdominal: Present soft and normoactive bowel sounds; Absent tenderness *Routine Extremities Exam Extremities: Absent cyanosis, clubbing or edema *Routine Skin Exam Skin: Present warm; Absent rash *Routine Neurological Exam Neurological: Present alert and oriented X3 Results Data Completed and Pending Labs on day of discharge: Labs from last 24 hours 02/28/25 02/28/25 06:20 06:12 WBC 12.5 H RBC 4.20 L Hgb 14.1 Hct 41.8 L MCV 99.5 H MCH 33.6 H MCHC 33.7 RDW 14.7 Plt Count 149 MPV 10.3 Neut % (Auto) 78.1 Lymph % (Auto) 10.6 Fisher % (Auto) 9.3 Eos % (Auto) 0.1 Baso % (Auto) 0.1 Neut # (Auto) 9.8 H Lymph # (Auto) 1.3 Fisher # (Auto) 1.2 H Eos # (Auto) 0.0 Baso # (Auto) 0.0 Sodium 136 Potassium 4.3 Chloride 105 Carbon Dioxide 28 Anion Gap 7.3 BUN 20 Creatinine 1.20 Estimated Creat Clear 63 Estimated GFR 59 Est GFR ( Amer) 71 Glucose 106 H Lactate 1.0 Calcium 8.3 L Magnesium 1.6 Total Bilirubin 0.8 AST 47 ALT 25 Alkaline Phosphatase 69 Total Creatine Kinase 272 H Troponin I 0.12 H Total Protein 6.3 Albumin 3.8 Globulin 2.5 Albumin/Globulin Ratio 1.5 Vitamin B12 711 Folate 9.68 Procalcitonin 0.233 TSH 0.64 DS: Diagnosis Discharge Diagnosis (1) Leukocytosis: Status: Acute Code(s): D72.829 - Elevated white blood cell count, unspecified Qualifiers: Leukocytosis type: unspecified Qualified Code(s): D72.829 - Elevated white blood cell count, unspecified (2) Chest wall trauma: Status: Acute Code(s): S29.9XXA - Unspecified injury of thorax, initial encounter (3) NSTEMI (non-ST elevated myocardial infarction): Status: Acute Code(s): I21.4 - Non-ST elevation (NSTEMI) myocardial infarction (4) Pneumonia: Status: Acute Code(s): J18.9 - Pneumonia, unspecified organism Qualifiers: Laterality: right Lung location: upper lobe of lung Pneumonia type: due to unspecified organism Qualified Code(s): J18.9 - Pneumonia, unspecified organism Meds Home Medications and Allergies Home Medications ?Medication ?Instructions ?Recorded ?Confirmed ?Type aspirin 81 mg tablet,delayed 81 mg PO DAILY 02/28/25 02/28/25 History release atorvastatin 80 mg tablet 80 mg PO HS 02/28/25 02/28/25 History folic acid 1 mg tablet 1 mg PO DAILY 02/28/25 02/28/25 History levocetirizine 5 mg tablet 5 mg PO HS 02/28/25 02/28/25 History methotrexate sodium 2.5 mg tablet 25 mg PO WEEKLY 02/28/25 02/28/25 History metoprolol tartrate 25 mg tablet 12.5 mg PO BID 02/28/25 02/28/25 History Held on 02/28/25. Instructions: Resume on 03/07/25. This medication might be contributing to your low blood pressures and fall. Follow-up with your PCP or cardiology before restarting this medication. nitroglycerin 0.4 mg sublingual 0.4 mg sublingual Q5MINP PRN Chest 02/28/25 02/28/25 History tablet Pain sulfamethoxazole 800 1 tab PO BID 02/28/25 02/28/25 History mg-trimethoprim 160 mg tablet New Prescriptions to Start Prescriptions: Allergies Allergy/AdvReac Type Severity Reaction Status Date / Time No Known Allergies Allergy Verified 02/28/25 02:41 Discharge Plan Disposition Patient Disposition: Home Health Service Condition: Fair Discharge Order Discharge Orders: Discharge Order (Routine); Ordered 02/28/25 Ordered By: Darnell Woods Follow up Plan Follow up with: Breonna Robb APRN [Nurse Practitioner, Cardiology] - 03/11/25 2:30 pm Hedy Baptiste [Primary Care Provider, Medical] - 03/07/25 10:30 am Prescriptions/Medication Reconciliation: Continued atorvastatin 80 mg tablet 80 mg PO HS Patient Comments: TAKE 1 TABLET BY MOUTH DAILY sulfamethoxazole-trimethoprim 800-160 mg tablet 1 tab PO BID aspirin 81 mg tablet,delayed release (DR/EC) 81 mg PO DAILY Patient Comments: TAKE 1 TABLET BY MOUTH DAILY methotrexate sodium 2.5 mg tablet 25 mg PO WEEKLY Patient Comments: TAKE 10 TABLETS BY MOUTH ONCE WEEKLY ON THE SAME DAY EACH WEEK nitroglycerin 0.4 mg tablet, sublingual 0.4 mg sublingual Q5MINP PRN (Reason: Chest Pain) Patient Comments: ONE TABLET UNDER TONGUE NEEDED FOR CHEST PAIN folic acid 1 mg tablet 1 mg PO DAILY Patient Comments: TAKE 1 TABLET BY MOUTH EVERY DAY levocetirizine 5 mg tablet 5 mg PO HS Patient Comments: TAKE 1 TABLET BY MOUTH EVERY EVENING Held metoprolol tartrate 25 mg tablet 12.5 mg PO BID Hold Instructions: Resume on 03/07/25. This medication might be contributing to your low blood pressures and fall. Follow-up with your PCP or cardiology before restarting this medication. Patient Comments: TAKE 1/2 TABLET BY MOUTH TWICE DAILY Problem Reconciliation Problems Reviewed?: Yes Patient Discharge Instructions Patient Instructions: Pneumonia--Adult, Acute Coronary Syndrome, Stop Light Pneumonia Print Language: Syriac Providers Primary Care Provider: Hedy Baptiste Admit Provider: Darnell Woods Attending Provider: Darnell Woods
[2025-02-28] MEDS: ACETAMINOPHEN 325MG TAB 650 MG PO (13:56)
[2025-02-28] MEDS: LACTATED RINGERS 1000ML 500 ML IV (14:28)
--- NOTE | 2025-02-28 14:44 | ECG_ITS ---
APPROVED REPORT Exam: Resting ECG HR:96 bpm ECG Measurements Heart Rate 96 AXES WY 148 P 32 QRSd 111 QRS 160 QT 339 T 102 QTc 393 Conclusion SINUS RHYTHM PATTERN CONSISTENT WITH PULMONARY DISEASE POSSIBLE RIGHT VENTRICULAR HYPERTROPHY [SOME/ALL OF: PROMINENT R IN V1, LATE TRANSITION, RAD, ANTHONY, SSS] ABNORMAL ECG UNCONFIRMED REPORT Electronically signed by : Iam Malave MD 03/03/2025 16:41:18
--- NOTE | 2025-03-04 12:59 | SW/DCPLANNER ---
Spoke with patient on the phone. Patient stated that he is doing good just sore. Patient stated that him and his daughter are aware of his upcoming appointments. Patient stated that he was not prescribed any new medicine and that he is taking what he has. Patient stated that he has no concerns or questions at this time. Gosia Ayers
== END 2025-02-28 16:00 | disposition home health service (06) ==
PROVIDERS: Internal Medicine; Nurse Practitioner Family; Admitting Provider Student in an Organized Health Care Education/Training Program; PCP Family Medicine; Visit Provider Student in an Organized Health Care Education/Training Program
PROC: 4A023N7 Measurement of Cardiac Sampling and Pressure, Left Heart, Percutaneous Approach (ICD-10-PCS; CPT 93452; principal; 2025-02-28 13:00)
DX: J18.9 Pneumonia, unspecified organism (principal); I21.4 Non-ST elevation (NSTEMI) myocardial infarction; S22.32XA Fracture of one rib, left side, initial encounter for closed fracture; C34.90 Malignant neoplasm of unspecified part of unspecified bronchus or lung; G47.33 Obstructive sleep apnea (adult) (pediatric); I11.0 Hypertensive heart disease with heart failure; I50.9 Heart failure, unspecified; Z95.5 Presence of coronary angioplasty implant and graft; Z90.49 Acquired absence of other specified parts of digestive tract; Z90.2 Acquired absence of lung [part of]; Z79.82 Long term (current) use of aspirin; Z79.899 Other long term (current) drug therapy; W19.XXXA Unspecified fall, initial encounter
CPT/HCPCS: 36415; 71045; 80053; 82550; 82607; 82746; 83605; 83735; 84145; 84443; 84484; 85025; 87040; 93005; 93270; 93306; 93459; 96374; 96375; 97162; 97166; 97530; 99152; C1725; C1760; C1769; C1894; G0378; J1200; J1644; J2003; J2250; J3010; J7040; J7120; Q9967

== ENCOUNTER 2025-04-08 09:40 | Outpatient (CLI) | payer MEDICARE, OTHER, SELFPAY ==
--- OUTSIDE RECORDS SUMMARY | 2025-03-26 15:45 | XMS_ITS | Encounter Summary ---
Author Organization [facility] Address [address] [id number] Care Team Providers Care Dark Room Attendant Name Role Phone Francisco Glynn MD Primary Care Provider [phone] Az Carpio MD Unavailable Reason for Referral * Other Medical (Routine) - Pending Review Specialty Diagnoses / Procedures Referred By Trinh ghotra Referred To Contact Diagnoses Oromandibular dystonia Procedures Botox Dystonia Az Carpio MD [address] [address] Phone: tel: fax: Referral ID Status Reason Start Date Expiration Date V isits Requested Visits Authorized [id number] Pending Review 03/26/2025 09/25/2026 1 1 * Clinic-Administered Medication (Routine) - Closed Specialty Diagnoses / Procedures Referred By Trinh ghotra Referred To Contact Diagnoses Oromandibular dystonia Procedures WY INJECTION,ONABOTULINUMTOXINA Az Carpio MD [address] [address] Phone: tel: fax: Referral ID Status Reason Start Date Expiration Date Visits Re quested Visits Authorized [id number] Closed 03/26/2025 09/25/2026 1 1 Reason for Visit * Other Medical (Routine) - Closed Specialty Diagnoses / Procedures Referred By Contac t Referred To Contact Neurology Diagnoses Oromandibular dystonia Procedures Botox Dystonia Az Carpio MD [address] [facility] [address] [place] [address] Phone: tel: fax: Referral ID Status Reason Start Date Expiration Date Visits Re quested Visits Authorized [id number] Closed 12/18/2024 06/19/2026 1 1 Encounter Details Date Type Department Care Team (Latest Contact Info) Description 03/26/2025 3:45 PM EDT Procedure Visit [place] [facility] [address] [place] [address] Az Carpio MD [address] [facility] [address] [place] [address] Oromandibular dystonia (Primary Dx) Social History Tobacco Use Types Packs/Day Years Used Date Smoking Tobacco: Former Cigarettes 1.5 45 1 969 - 2013 Passive Smoke Exposure: Never Smokeless Tobacco: Never Alcohol Use Standard Drinks/Week Comments Not Currently 0 (1 standard drink = 0.6 oz pur e alcohol) rarely PHQ-2 Answer Date Recorded Patient Health Questionnaire-2 Score 0 06/23/2022 PHQ-2A Answer Date Recorded Patient Health Questionnaire-2 Score 0 06/23/2022 Sex and Gender Information Value Date Recorded Sex Assigned at Not on file Legal Sex Male 8:14 PM EDT Gender Identity Not on file Sexual Orientation Not on file documented as of this encounter Miscellaneous Notes * Progress Notes - Az Carpio MD - 03/26/2025 3:45 PM EDT Botulinum Toxin Injection Procedure Note Procedure: Botulinum Toxin Procedure Diagnosis: Oromandibular dystonia Indications: Oromandibular dystonia Procedure Details The risks, benefits, indications, potential complications, and alternatives were explained to the patient and informed consent was obtained. The limb(s) for injection were identified and a time out called to re-identify the correct limb forinjection. After prepping the skin with alcohol overlying the following muscles, botulinum toxin was injected intramuscularly using EMG guidance as follows. Impression: Patient tolerated injection procedure with no complications. .Botox Injection Cruz came today for Botox injection. I reviewed with him the risks and benefits including ptosis, infection, and bleeding. He has no contraindications. He is on no antibiotics and has no neuromuscular disorders. is not an issue. He tolerated the procedure well. The patient will return to see me again in three to four months, earlier if there are any problems. Cruz understands the side effects and risks, as well as the necessity for continued treatment to maintain improvement. Additional therapy may be necessary. Call if there are any problems. 45 units were used at a concentration of 10 units per 0.1 mL. Last: 12/2024: 45 units of Botox: 4/5 benefit, no side effects. Lasted for 2.5 months. TODAY'S BOTULINUM TOXIN INJECTIONS: Botox EMG guided 10:1 conc. Total dose injected: 45 units. Wastage: 55 units. L Lateral pterygoid: 45 units. documented in this encounter Plan of Treatment Upcoming Encounters Date Type Department Care Team (Late st Contact Info) Description 07/09/2025 1:45 PM EST Procedure Visit [place] [facility] [address] [place] [address] Az Carpio MD [address] [facility] [address] [place] [address] Scheduled Orders Name Type Priority Associated Diagnoses Orde r Schedule Botox Dystonia Procedures Routine Oromandibular dystonia Expected: 06/23/2025, Expires: 03/24/2026 documented as of this encounter Visit Diagnoses Diagnosis Oromandibular dystonia- Primary documented in this encounter Administered Medications Inactive Administered Medications - up to 3 most recent administrations Medication Order MAR Action Action Date Dose Rate Site onabotulinumtoxinA (Botox) injection 45 Units 45 Units, Intramuscular, Once, 1 dose, On Mon03/26/25 at 1615, RoutineIndications:Oromandi bular dystonia Given by Other 03/26/2025 3:34 PM EDT 45 Units O ther documented in this encounter Additional Health Concerns Assessment Noted Time A fall risk assessment has been complete d for the patient 12/18/2024 2:32 PM EDT A Body Mass Index follow-up plan has been documented for the patient 03/26/2025 4:27 PM EDT documented as of this encounter Care Teams Dark Room Attendant Relationship Specialty Start Date End Date Francisco Glynn MD [address] [place] [address] PCP - General 06/23/22 Az Carpio MD [address] [facility] [address] [place] [address] Consulting Physician Neurology 09/07/22 documented as of this encounter
--- OUTSIDE RECORDS SUMMARY | 2025-04-08 09:45 | XMS_ITS | Encounter Summary ---
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 - [facility] Social History Tobacco Use Types Packs/Day Years Used Date Smoking Tobacco: Former Cigarettes Q uit: 2014 Smokeless Tobacco: Never Comments:with cessation, Alcohol Use Standard Drinks/Week Comments No 0 (1 standard drink = 0.6 oz pur e alcohol) Sex and Gender Information Value Date Recorded Sex Assigned at Not on file Legal Sex Male 1:37 PM EDT Gender Identity Not on file Sexual Orientation Not on file documented as of this encounter Plan of Treatment Upcoming Encounters Date Type Department Care Team (Late st Contact Info) Description 04/08/2025 1:00 PM EDT Appointment [facility] AT [address] [phone] 04/15/2025 1:30 PM EDT Office Visit [facility] [address] [phone] Talisha Ozuna APRN [address] [facility] [address] [place] [address] 07/09/2025 11:30 AM EST Office Visit [facility] [address] [place] [address] Nadia Garcia MD [address] [place] [address] 08/12/2025 10:30 AM EST Office Visit [facility] [address] [place] [address] Vandana Ramirez APRN [address] [place] [address] documented as of this encounter Visit Diagnoses Not on filedocumented in this encounter Additional Health Concerns Infection Onset Date Last Indicated Resolved Time COVID (rule out) 07/09/2021 07/12/2021 07/16/2021 9:08 PM EST COVID Screen (preop/placement) 07/27/2021 08/10/2021 08/10/2021 7:09 PM EST COVID Screen (preop/placement) 09/10/2021 09/10/2021 09/13/2021 1:03 PM EDT COVID Screen (preop/placement) 09/13/2021 09/13/2021 09/13/2021 2:03 PM EDT COVID Screen (preop/placement) 10/14/2021 10/19/2021 10/19/2021 8:00 PM EDT documented as of this encounter Care Teams Foreclosure Home Inspector Relationship Specialty Start Date End Date Hedy Baptiste DO [address] [place] [id number] PCP - General Family Medicine 04/15/21 documented as of this encounter
--- OUTSIDE RECORDS SUMMARY | 2025-04-08 09:45 | XMS_ITS | Clinical Summary ---
Author Organization [facility] Address [address] [place] [address] Phone Care Team Providers Care Periodicals Library Assistant Name Role Phone Unavailable Primary Care Provider Unavailabl e Allergies No known active allergies Medications zinc gluconate 50 mg Oral Tablet Take 50 mg by mouth daily. Active atorvastatin (LIPITOR) 80 mg Oral Tablet Take 80 mg by mouth daily. Active famotidine (PEPCID) 20 mg Oral Tablet Take 20 mg by mouth 2 times daily. Active homeopathic drugs (ARSENICUM ALBUM [id number] ORAL) Take by mouth. Active gabapentin (NEURONTIN) 100 mg Oral Capsule Take 100 mg by mouth 3 times daily. Active metoprolol (LOPRESSOR) 25 mg Oral Tablet Take 25 mg by mouth 2 times daily. Active aspirin 81 mg Oral Tablet, Delayed Release (E.C.) Take 81 mg by mouth daily. Active Medical History Medical History Date Comments ST elevation (STEMI) myocardial infarction (HCC) Cancer (HCC) lung Mixed hyperlipidemia CAD (coronary artery disease) Social History Tobacco Use Types Packs/Day Years Used Date Smoking Tobacco: Former Cigarettes Tobacco Cessation:Counseling Given: Not Answered Alcohol Use Standard Drinks/Week Comments Yes 0 (1 standard drink = 0.6 oz pur e alcohol) occ Sex and Gender Information Value Date Recorded Sex Assigned at Not on file Legal Sex Male 6:35 PM EDT Gender Identity Not on file Sexual Orientation Not on file Last Filed Vital Signs Vital Sign Reading Time Taken Comments Blood Pressure 148/81 01/29/2024 7:05 PM EDT Pulse 82 01/29/2024 7:05 PM EDT Temperature 36.9 C (98.4 F) 01/29/2024 7:05 PM EDT Respiratory Rate 16 01/29/2024 7:05 PM EDT Oxygen Saturation 96% 01/29/2024 7:05 PM EDT Inhaled Oxygen Concentration - - Weight 81.6 kg (180 lb) 01/29/2024 7:05 PM EDT Height 172.7 cm (5' 8 ) 01/29/2024 7:05 PM EDT Body Mass Index 27.37 01/29/2024 7:05 PM EDT Plan of Treatment Health Maintenance Due Date Last Done Comments Wellness Exam Medicare 1953 Hepatitis C Screening 1967 Cologuard 1994 Colon Cancer Screening 1994 Colonoscopy 1994 FIT 1994 Sigmoidoscopy 1994 Virtual Colonography 1994 AAA Screening 2014 Pneumococcal Vaccine 50+ (2 of 2 - PCV20 or PCV21) 05/18/2021 05/18/2020 RSV or 60+ (1 - 1-dose 75+ series) 2024 COVID-19 Vaccine ( season) 2025 04/05/2023, 10/22/2021, 09/27/2021, Additional history exists Influenza Vaccine (#1) 2025 , 04/07/2022, 04/14/2021, Additional history exists DTaP/TDaP/Td (2 - Td or Tdap) 12/22/2027 12/21/2017, 09/04/1996 Zoster Completed 09/13/2019, 03/2020, 06/14/2016 Hepatitis B Vaccine Aged Out No longe r eligible based on patient's age to complete this topic Meningococcal B Vaccine Aged Out No l onger eligible based on patient's age to complete this topic Insurance MEDICARE [place] PART A AND B [address] [id number] [facility]
--- OUTSIDE RECORDS SUMMARY | 2025-04-08 09:45 | XMS_ITS | Clinical Summary ---
Author Organization [facility] Address [address] [place] [address] Care Team Providers Care Engineering Test Specialist Name Role Phone Francisco Glynn MD Primary Care Provider [phone] Az Carpio MD Unavailable Allergies No known active allergies Medications Aspirin Low Dose 81 MG EC tablet Take 1 tablet (81 mg) by mouth 1 (one) time each day. 2 Active atorvastatin (Lipitor) 80 MG tablet Take 1 tablet (80 mg) by mouth 1 (one) time each day. 2 Active famotidine (Pepcid) 20 MG tablet Take 1 tablet (20 mg) by mouth 1 (one) time each day. Active folic acid (Folvite) 1 MG tablet daily. 2 Active ipratropium (Atrovent) 0.03 % nasal spray 2 Active lactulose (Chronulac) 10 GM/15ML solution TAKE 15-30ML BY MOUTH 1-2 TIMES DAILY NEEDED FOR CONSTIPATION 2 Active metoprolol tartrate (Lopressor) 25 MG tablet Take 0.5 tablets (12.5 mg) by mouth 2 (two) times a day. 2 Active Zinc 50 MG tablet Take 50 mg by mouth 1 (one) time each day. Active gabapentin (Neurontin) 100 MG capsule Take by mouth 1 (one) time each day. 3 Active lidocaine-prilo mackenzie (Emla) 2.5-2.5 % cream APPLY TOPICALLY TO THE AFFECTED AREA NEEDED 45-60 MINUTES PRIOR TO PORT ACCESS COVER WITH SARAN/PLASTIC WRAP 3 Active trihexyphenidyl (Artane) 2 MG tablet Take 0.5 tablets (1 mg) by mouth 3 (three) times a day with meals. 45 tablet 1 4 Active baclofen (Lioresal) 10 MG tablet TAKE 1 TABLET BY MOUTH EVERY EVENING NEEDED FOR PAIN. MAY CAUSE SEDATION 4 Active diclofenac (Voltaren) 1 % topical gel Apply 4 g topically. 4 Active multivitamin (Theragran-M) tablet Take 1 tablet by mouth 1 (one) time each day. Active predniSONE (Deltasone) 10 MG tablet 4 Active sulfamethoxazol e-trimethoprim (Bactrim DS) 800-160 MG tablet Take 1 tablet by mouth 2 (two) times a day. 4 Active methotrexate 2.5 MG tablet TAKE 8 TABLETS BY MOUTH EVERY WEEK 4 Active hydroxychloroqu ine (Plaquenil) 200 MG tablet Take 1 tablet by mouth twice a day. 5 Active levocetirizine (Xyzal) 5 MG tablet Take 1 tablet by mouth every evening. 5 Active Hospital, Clinic, or Other Facility Administered Medication Ordered Dose Route Frequency Start Date End Date Status onabotulinumtoxinA (Botox) injection 45 UnitsIndications:Oromandibu lar dystonia 45 Units IM Once 03/26/2025 03/26/2025 Ended Active Problems No known active problems Encounters Date Type Department Care Team Description 03/26/2025 3:45 PM EDT Procedure Visit [facility] [address] [facility] [place] [address] Az Carpio MD Oromandibular dystonia (Primary Dx) 03/26/2025 Travel from Last 3 Months Immunizations Immunization Administration Dates Next Due Hep A, Adult 05/02/2018 Influenza, High-dose, Split Virus, Trivalent, Injectable, preservative free 03/14/2024 Influenza, Unspecified 07/15/2013 Influenza, high-dose, quadrivalent 04/05,04/07/2022,04/05/2021,2019 Influenza, injectable, quadrivalent 05/07/2019,1 Influenza, injectable, quadr ivalent, preservative free 04/03/2020,03/28/2017 Influenza, trivalent, adjuvanted 04/14/2021 Moderna COVID-19 Vaccine (Re d Cap) 12+ years 09/27/2021,05/10/2021,08/07/2020 Moderna Covid-19 Vaccine 12y +, Rashad Protein, Preservative free 03/14/2024 Pneumococcal Conjugate PCV 13 05/18/2020 TD (adult), 2 Lf tetanus tox oid, preservative free, adsorbed 09/04/1996 Tdap 12/21/2017 Zoster, Unspecified 09/13/2019,07/11/2019 Zoster, live 06/14/2016 Family History Medical History Relation Name Comments Coronary artery disease Mother Relation Name Status Comments Mother Social History Tobacco Use Types Packs/Day Years Used Date Smoking Tobacco: Former Cigarettes 1.5 45 1 969 - 2013 Passive Smoke Exposure: Never Smokeless Tobacco: Never Tobacco Cessation:Counseling Given: Not Answered Alcohol Use Standard Drinks/Week Comments Not Currently [...] Sign Reading Time Taken Comments Blood Pressure 110/64 12/18/2024 2:23 PM EDT Pulse 61 12/18/2024 2:23 PM EDT Temperature 36.7 C (98 F) 06/23/2022 7:54 AM EST Respiratory Rate - - Oxygen Saturation 98% 12/18/2024 2:23 PM EDT Inhaled Oxygen Concentration - - Weight 80.8 kg (178 lb 2.1 oz) 12/18/2024 2:23 P M EDT Height 172.7 cm (5' 8 ) 12/18/2024 2:23 PM EDT Body Mass Index 27.08 12/18/2024 2:23 PM EDT Plan of Treatment Upcoming Encounters Date Type Department Care Team (Late st Contact Info) Description 07/09/2025 1:45 PM EST Procedure Visit [place] [facility] [address] [place] [address] Az Carpio MD [address] [place] [address] Health Maintenance Due Date Last Done Comments [facility]-Depression Screening 1950 [facility]-Infant/Child/Adol SDOH Screenings 1950 [facility]- SDOH Screenings 1967 [facility]-Adult SDOH Screenings 1967 CT Colonography 1994 Colonoscopy 1994 FIT-DNA 1994 FIT 1994 FOBT 1994 Sigmoidoscopy 1994 [facility]-Colorectal Cancer Screening 1994 [facility]-Zoster Vaccines (2 of 3) 11/08/2019 09/13/2019, 07/11/2019, 06/14/2016 [facility]-Pneumococcal Vaccine: 50+ Years (2 of 2 - PCV20 or PCV21) 05/18/2021 05/18/2020 [facility]-RSV Vaccine: 60+ Years or (1 - 1-dose 75+ series) 2024 [id number] Vaccine ( season) 2025 03/14/2024, 04/05/2023, 10/22/2021, Additional history exists [facility]-Influenza Vaccine (#1) 03/03/202503/14, 04/05/2023, 04/07/2022, Additional history exists [facility]-DTaP,Tdap,and Td Vaccines (2 - Td or Tdap) 12/22/2027 12/21/2017, 09/04/1996 [facility]-Hepatitis A Vaccines Aged Out 05/02/2018 No longer eligible based on patient's age to complete this topic [facility]-Diabetes: Hemoglobin A1C Discontinued 07/20/2023, 10/19/2021, 09/13/2021 [facility]-Lung Cancer Screening Discontinued 2024, 04/02/2024, 10/02/2023, Additional history exists HPV Vaccines Aged Out No longer eligi ble based on patient's age to complete this topic [facility]-HIB Vaccines Aged Out No longer e ligible based on patient's age to complete this topic [facility]-IPV Vaccines Aged Out No longer e ligible based on patient's age to complete this topic [facility]-Rotavirus Vaccines Aged Out No lo nger eligible based on patient's age to complete this topic Insurance MEDICARE [facility] Care Teams Engineering Test Specialist Relationship Specialty Start Date End Date Francisco Glynn MD [address] [place] [id number] PCP - General 06/23/22 Az Carpio MD [address] [facility] [address] [place] [address] Consulting Physician Neurology 09/07/22
--- OUTSIDE RECORDS SUMMARY | 2025-04-08 09:45 | XMS_ITS | Encounter Summary ---
Author Organization [facility] Address [address] [place] [address] Care Team Providers Care Certified Registered Locksmith Name Role Phone Francisco Glynn MD Primary Care Provider [phone] Az Carpio MD Unavailable Encounter Details Date Type Department Care Team (Latest Contact Info) Description 03/26/2025 Travel Social History Tobacco Use Types Packs/Day Years [...] [address] [place] [address] Az Carpio MD [address] [place] [address] documented as of this encounter Visit Diagnoses Not on filedocumented in this encounter Additional Health Concerns Assessment Noted Time A fall risk assessment has been complete d for the patient 12/18/2024 2:32 PM EDT A Body Mass Index follow-up plan has been documented for the patient 03/26/2025 4:27 PM EDT documented as of this encounter Care Teams Certified Registered Locksmith Relationship Specialty Start Date End Date Francisco Glynn MD [address] [place] [id number] PCP - General 06/23/22 Az Carpio MD [address] [facility] [address] [place] [address] Consulting Physician Neurology 09/07/22 documented as of this encounter
--- OUTSIDE RECORDS SUMMARY | 2025-04-08 09:45 | XMS_ITS | Encounter Summary ---
[facility] Organization [facility] Address [address] [place] [address] Care Team Providers Care Software Deployment Engineer Name Role Phone Hedy Baptiste Primary Care Provider [phone] Encounter Details Date Type Department Care Team (Late st Contact Info) Description 07/15/2013 Conversion Encounter [facility] HISTORICAL CONV [address] [place] [address] Interface, See Report Social History Tobacco Use Types Packs/Day Years Used Date Smoking Tobacco: Never Assessed Sex and Gender Information Value Date Recorded Sex Assigned at Not on file Legal Sex Male 1:37 PM EDT Gender Identity Not on file Sexual Orientation Not on file documented as of this encounter Discharge Summaries * Interface, See Report - 07/15/2013 3:57 PM EST [place] [address] DISCHARGE SUMMARY PATIENT NAME: CRUZ SANCHEZ [address] [facility] NO: [id number] DATE OF : 1950 DATE OF ADMISSION: 07/15/2013 DATE OF DISCHARGE: 07/22/2013 ATTENDING PHYSICIAN: BRIT Tang PRIMARY CARE PHYSICIAN: Dr. Billy Nolasco VISUAL ASSOCIATE: Dr. 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 PROBLEM LIST: 1. Coronary artery disease. a) Acute lateral ST elevation [place] 07/15/2013. b) Emergent cardiac catheterization 07/15/2013 revealing severe three vessel disease. c) Status post export thrombectomy to the mid circumflex artery 07/15/2013 Dr. Nadia Garcia. d) Status post coronary artery bypass grafting x4 07/16/2013 Dr. Harpreet Dimas. 1) Saphenous vein graft to the ramus and circumflex. 2) Saphenous vein graft to the PDA. 3) EATON to the LAD. e) Echocardiogram 07/15/2013 Dr. Nadia Garcia revealing an LVEF of 50-55% with posterolateral hypokinesis, moderate MR, trace TR. 2. Dyslipidemia. 3. Ongoing tobacco abuse. 4. Surgical history. a) Open cholecystectomy. b) Varicose vein stripping in the right lower extremity. ALLERGIES: The patient has no known drug allergies. DISCHARGE MEDICATIONS: 1. Aspirin 81 mg p.o. daily. 2. Metoprolol titrate 25 mg q.12 hours. 3. Lipitor 20 mg at bedtime. 4. Nitroglycerin 0.4 mg sublingual p.r.n. for chest pain. 5. Lortab 7.5/325, one q.6 hours p.r.n. for pain. HISTORY OF PRESENT ILLNESS: The patient is a 63-year-old white male with the above-noted medical history who presented to his family physician's office on the afternoon of admission at approximately 1:30 p.m. The patient began having chest pain at approximately 7:15 on the morning of admission. 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 His pain progressively worsened prior to his presentation at his family care physician's office. Once there the patient was found to have ST elevation in the lateral leads and was transferred to the [facility] emergency room where he was treated with Plavix, aspirin, sublingual nitroglycerin, heparin and an Integrilin bolus. He was subsequently transferred via ground ambulance directly to the cardiac catheter[facility] lab at [facility]. For past medical history, family history and social history, please refer to the admission HandP. DIAGNOSTIC DATA (DISCHARGE): CBC on 07/20/2013 showed a white count 9.26, hemoglobin 9.7, hematocrit 29.9, and platelet count 175,000. BMP on 07/20/2013 showed a glucose of 100, BUN 26, creatinine 0.8, sodium 143, potassium 4.1, chloride 106, CO2 25, calcium 8.8. Hemoglobin A1c on 07/15/2013 was 5.6 with an estimated mean closed glucose 108. Fasting lipid profile on 07/15/2013 shows total cholesterol 178, triglycerides 106, HDL of 33, LDL cholesterol of 139. Peak troponin on 07/16/2013 67.62. Chest x-ray on 07/15/2013 showed chronic changes with no active was disease. Chest x-ray on 07/20/2013 showed cardiomegaly with bibasilar pulmonary opacities. EKG 07/15/[address] elevation. HOSPITAL COURSE: The patient was admitted to [facility] directly to the cardiac catheterization lab on 07/15/2013. He was found to have severe three vessel disease. He underwent export thrombectomy of the mid circumflex artery under the direction of Dr. Garcia. He tolerated that procedure well. Due to his severe three vessel disease, cardiothoracic consultation was obtained from Dr. Harpreet Dimas. Following his cardiac catheterization, the patient was transferred to the intensive care unit for close monitoring. On the morning of 07/16/2013 he underwent coronary artery bypass grafting x4. He tolerated this procedure well and had no postprocedure complications. On 07/18/2013 the patient was transferred to a telemetry bed. His condition continued to improve. He did have O2 saturations that were in the 80s on room air. Prior to discharge home health care as well as oxygen therapy were arranged. The patient will require assistance with his medications and nursing evaluation to evaluate his pulmonary status. On the morning of 07/22/2013 the patient was felt to have reached maximum hospital benefit and was discharged home. RECOMMENDATIONS: 1. Discharge medications as listed above. 2. Home O2. 3. Home health care for pulmonary status evaluation and medication management. 4. The patient will follow-up with Dr. Garcia in one month on 08/21/2013 at 11:30 a.m. 5. The patient will follow-up with Dr. Dimas in three to four weeks. 6. The patient was instructed to call our office in the interim for any questions, concerns or problems that may arise. Ana Crespo RN Dictated for Nadia Garcia M.D., Angel BELTRAN/PWH/rxdep Voice Rec. ID #[id number] Voice Original ID #[id number] Doc ID #[id number] Rev. #0 cc: Nadia Garcia M.D., Angel* Noam Moreno M.D.* DO NOT TEXT EDIT THIS LINE :CDS:153: Authenticated by ADAN DUKE On 07/30/2013 10:20:46 AM Authenticated by NADIA GARCIA M.D. On 08/09/2013 06:57:44 AM documented in this encounter H&P Notes * Interface, See Report - 07/15/2013 3:57 PM EST [address] HISTORY AND PHYSICAL PATIENT NAME: CRUZ SANCHEZ [facility]OSP[facility] NO: [id number] DATE OF : 1950 DATE OF ADMISSION: 07/15/2013 ATTENDING PHYSICIAN: BRIT Tang REFERRING PHYSICIAN: The [facility] emergency room. PRIMARY CARE PHYSICIAN: Romana Nolasco M.D. 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 PROBLEM LIST: 1. Acute lateral ST elevation [place]. 2. Dyslipidemia. 3. Ongoing tobacco abuse. 4. Surgical history: a. Open cholecystectomy. b. Varicose vein stripping in the right lower extremity. ALLERGIES: The patient has no known drug allergies. HOME MEDICATIONS: Fish oil daily. HISTORY OF PRESENT ILLNESS: Mr. Sanchez is a 63-year-old, white male with the above-noted medical history who presented to his family physician's office this afternoon at approximately 1:30 p.m. Mr. Sanchez states that at approximately 7:15 this morning he developed some substernal chest pain while at work. 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 The pain progressively worsened and he presented to his primary care physician office of 1:30 p.m. HISTORY OF PRESENT ILLNESS: (continued) His EKG was abnormal and he was subsequently transferred to the [facility] emergency room for further evaluation. Upon arrival there the patient was found to have ST elevation [place]. He was treated with Plavix, aspirin, sublingual nitroglycerin, transdermal nitroglycerin, heparin and Integrilin bolus. He was subsequently transported via ground ambulance directly to the cardiac catheterization lab at [facility]. Mr. Sanchez states that he has been having chest discomfort off and on for the last month and a half. This usually occurs at work. He has no associated symptoms. He did not seek medical attention until today when it became more severe. CARDIOVASCULAR RISK FACTORS: 1. Dyslipidemia. 2. Male gender. 3. Family history. 4. Increasing age. 5. Ongoing tobacco abuse. SOCIAL HISTORY: The patient is . 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 He smokes 1/2 pack cigarettes per day and has done so for many years. Denies alcohol or illicit drug use. FAMILY HISTORY: His mother at the age of 94 from natural causes. The patient's father's at age of 65 of unknown causes. He does have one brother who has had stent placement. REVIEW OF SYSTEMS: GENERAL: Denies any recent weight change, fever or night sweats. HEENT: The patient does wear glasses as well as a full set of dentures. No history of cataracts, glaucoma or hearing loss. RESPIRATORY: Probable COPD. CARDIAC: See HPI. GI: Denies dysphagia, heartburn, GERD, peptic ulcers or hepatitis. He is status post open cholecystectomy. : No history of renal failure or nephrolithiasis. Baseline creatinine is 1.3. REVIEW OF SYSTEMS: (continued) MUSCULOSKELETAL: No history of joint pain, stiffness, arthritis, osteoporosis or gout. PERIPHERAL VASCULAR: The patient does have a history of varicose vein stripping in the right lower extremity. HEMATOLOGY: No prior history of easy bruising, bleeding or anemia. ENDOCRINE: No prior history of thyroid disease or diabetes mellitus. NEURO: Denies headaches, seizures or previous stroke. PHYSICAL EXAMINATION: VITAL SIGNS: Blood pressure 115/76. Heart rate 91 and regular. Respirations 20. O2 SATs 94% on room air. He weighs 71 kg and is 5 feet 8 inches tall. GENERAL: This is a well-developed, well-nourished, middle-aged, white male who is currently experiencing 4/10 chest pain. He is alert and oriented x3. He has a normal mood and affect. SKIN: [place] and warm without rash or abnormality noted. HEENT: His head is normocephalic and atraumatic. Pupils are equal and reactive to light bilaterally. Mucous membranes are pink and moist. There is no elevation of JVD. LUNGS: Clear with bilateral wheezing noted. HEART: Regular rate and rhythm with a normal S1 and S2. No murmur, gallop or click is appreciated. ABDOMEN: Nontender. MUSCULOSKELETAL: No obvious bony abnormalities. NEUROLOGIC: Nonfocal. PERIPHERAL VASCULAR: The patient has 1+ posterior tibia and dorsalis pedal pulses. DIAGNOSTIC STUDIES/LABORATORY DATA: The following diagnostic studies and laboratory data were reviewed: BMP shows a sodium 136, potassium 3.9, chloride 99, CO2 30, BUN 15, creatinine 1.2, glucose 108. CBC reveals white count 12.7, hemoglobin 19, hematocrit 57, platelet count 257,000. Pro time 12.1 with INR 1.17. 12-lead EKG shows ST elevation in lead I and I aVL with reciprocal changes in II, III and aVF. IMPRESSION: 63-year-old hyperlipidemic smoker with acute lateral ST elevation [place]. PLAN: The patient will undergo emergent left heart catheterization under the direction of Dr. Garcia. Further recommendations will be made following the above. This is Ana Crespo R.N. functioning as a scribe for Dr. Garcia. I performed the review of systems, past medical history, social history, surgical history and family history. All other elements of the HandP were performed by Dr. Garcia. Ana Crespo RN Dictated for: Noam Hdz/PH/talia Voice Rec. ID #[id number] Voice Original ID #[id number] Doc ID #[id number] Rev. #0 cc: Nadia Garcia M.D., F.A.C.C.* Romana Nolasco M.D. DO NOT TEXT EDIT THIS LINE :P:153: Authenticated by ADAN DUKE On 07/19/2013 07:39:56 AM Authenticated by NADIA GARCIA M.D. On 07/23/2013 09:33:45 AM documented in this encounter Consult Notes * Interface, See Report - 07/15/2013 3:57 PM EST [place] [address] CONSULTATION PATIENT NAME: CRUZ SANCHEZ [facility] NO: [id number] DATE OF : 1950 DATE OF ADMISSION: 07/15/2013 DATE OF CONSULTATION: 07/15/2013 CHIEF COMPLAINT: Chest pain. HISTORY OF PRESENT ILLNESS: The patient is a 63-year-old white male who presented to the [facility] with substernal chest pain at approximately 7 o'clock this morning. The patient has had chest pain for approximately one month with exertion. This pain was not relieved and he has been transferred here, undergone evaluation for acute myocardial infarction and had subsequent cardiac catheterization. The pain appears to be moderate to severe intensity, continuous pain. It started this morning as previously noted with previous episodes approximately one month ago as well. He is a longtime smoker. He does have a family history of heart disease. He has been relatively noncompliant. PAST MEDICAL HISTORY: He does have a history of hyperlipidemia but he denies history of diabetes or hypertension. PAST SURGICAL HISTORY: 1. Cholecystectomy. 2. Varicose vein ligation. ALLERGIES: No known drug allergies. HOME MEDICATIONS: Fish oil. FAMILY HISTORY: Positive for coronary artery disease. REVIEW OF SYSTEMS: GENERAL: No fever or chills. He has no pain at the current time. EYES: No diplopia or blurred vision. ENT: He has no nosebleeds or other problems. LUNGS: He has no hemoptysis or shortness of breath. Does have a cough. CARDIOVASCULAR: Has had chest pain as previously noted and some dyspnea. : No dysuria or hematuria. GI: No melena or hematochezia. MUSCULOSKELETAL: Minor arthritic pains. PERIPHERAL VASCULAR: He has no claudication. NEUROLOGIC: No history CVA or TIA symptoms. SKIN: No petechiae, bruises or rash. ENDOCRINE: No polydipsia or polyphagia. LYMPH/HEMATOLOGIC: No bleeding disorders or enlarged lymph nodes. PHYSICAL EXAMINATION: GENERAL: He is in normal sinus rhythm. He is comfortable. HEENT: Unremarkable. Pupils equal, round. NECK: Without masses or bruits. LUNGS: Decreased in the bases without rales or rhonchi. CARDIOVASCULAR: Regular rate without murmur, rub or gallop. ABDOMEN: Soft. EXTREMITIES: No edema. MUSCULOSKELETAL: Full range of motion. NEUROLOGIC: Motor and sensory intact. SKIN: No petechiae, bruises or rash. ASSESSMENT: Mr. Sanchez is a 63-year-old white male who presents with an acute myocardial infarction and severe three-vessel coronary artery disease on cardiac catheterization today. I agree with the need for coronary artery bypass surgery. I explained the operation, risks and alternatives. I explained the risks which include risk to his life, bleeding, infection, stroke, heart attack. Other problems include dyslipidemia, history of continued tobacco abuse, history of cholecystectomy, varicose vein ligation. I would like to thank you for this consultation. Harpreet Dimas M.D.* AGR/rxblt Voice Rec. ID #[id number] Voice Original ID #[id number] Doc ID #[id number] Rev. #0 cc: Harpreet Dimas M.D.* Nadia Garcia M.D., F.A.C.C.* <start header> [place] [address] CONSULTATION PATIENT NAME: CRUZ SANCHEZ [facility] NO: [id number] DATE OF : 1950 <end header> DO NOT TEXT EDIT THIS LINE :CCS:[id number]: Authenticated by HARPREET DIMAS M.D. On 07/23/2013 03:06:47 PM * Interface, See Report - 07/15/2013 3:57 PM EST [place] [address] PULMONOLOGY CONSULTATION PATIENT NAME: CRUZ SANCHEZ [facility] NO: [id number] DATE OF : 1950 DATE OF ADMISSION: 07/15/2013 DATE OF CONSULTATION: 07/15/2013 REQUESTING PHYSICIAN: Dr. Nadai Garcia [place] SURGEON: Dr. Dimas PRIMARY CARE PHYSICIAN: Dr. Romana Nolasco REASON FOR CONSULTATION: ICU management status post lateral wall STEMI with anticipation of coronary artery bypass surgery for multivessel coronary artery disease. HPI: The patient is a 63-year-old male with a history of dyslipidemia who was at work at the [employer] in [place] this morning at approximately 7:15 when he developed substernal chest pain with exertion. This continued throughout the day and so he presented to his primary care physician at approximately 1:30 who then sent him to [facility] where he was found to have ST elevation in lateral leads. He was transferred to our facility where he went to the Staff Radiographer with Dr. Garcia who performed a thrombectomy to the circumflex. The patient's chest pain improved, however still persisting at 4 out of 10. He has been transferred to the ICU with anticipation of going to the OR tomorrow for multivessel CABG per Dr. Dimas who has already evaluated the patient and agreed. PAST MEDICAL HISTORY: Dyslipidemia. PAST SURGICAL HISTORY: 1. Open cholecystectomy. 2. Right lower extremity vein stripping. ALLERGIES: None. MEDICATION THERAPIES: Fish oil. The patient has not had a flu vaccine this season. FAMILY HISTORY: Mother at age 94 to natural causes. Father is at age 65 for unknown cause. The patient has a brother who has had a history of CAD requiring stenting in the past. SOCIAL HISTORY: The patient is . 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 Admits to occasional alcohol use. Smokes 1 1/2 packs per day and has done so for an extended period of time. REVIEW OF SYSTEMS: See HPI and Dr. Garcia's excellent HandP. PHYSICAL EXAM: VITAL SIGNS: Temperature is 97.7 axillary, blood pressure is 101/64, heart rate is 77, SpO2 is 97% on 2 liters and respiratory rate 20. CONSTITUTIONAL: This is a well-developed, well-nourished, male who appears somewhat older than his stated age of 63 who is cooperative and resting comfortably in the bed. HEENT: Normocephalic, atraumatic. Pupils are equal and reactive to light. Nares patent without sinus tenderness, mucosal abnormality or polyps. Oropharynx without exudates or lesions. NECK: Supple. Trachea midline. No mass, thyromegaly or JVD. RESPIRATORY: Scattered bilateral rhonchi. CARDIOVASCULAR: Regular rate and rhythm without murmur, rub or gallop. Positive pulses all extremities. ABDOMEN: Soft, nontender and nondistended. No hepatosplenomegaly. Hyperactive bowel sounds. LYMPHATIC: No neck or supraclavicular lymphadenopathy. MUSCULOSKELETAL: Moves all extremities equally and purposefully. Gait assessment is deferred. EXTREMITIES: Positive for clubbing. Negative for edema. Right fem site is without evidence of hematoma or bleeding. PHYSICAL EXAM: (CONT.): SKIN: No rashes, lesions or ulcers. NEURO/PSYCH: Alert and oriented x 3 with appropriate mood and affect. LABORATORY AND DIAGNOSTICS: CMP is normal. Sodium 135 and calcium 8.5. Lipid panel shows HDL of 33 and LDL of 139. Troponin is 2.54. CBC without differential shows a WBC of 12.39, hemoglobin 16.7 and a platelet count of 203. HA1c is 5.6. IMPRESSIONS: 1. CAD with prolonged chest pain. (A) Lateral STEMI. (B) Unknown EF. (C) Status post left heart cath with thrombectomy to proximal circumflex today. (D) Multivessel coronary artery disease with anticipation of CABG in the a.m. (E) Currently on Integrilin. They will transition to heparin tonight. 2. Hyperlipidemia. 3. Ongoing tobacco abuse. 4. History of cholecystectomy. PLAN: 1. ICU admission. 2. Continue orders per Cardiology. 3. Preop orders per CT. 4. Bronchodilators. 5. Tobacco cessation counseling. 6. The patient will require influenza vaccine. 7. Incentive spirometry. 8. Surgery in a.m. Thank you very much for this consultation. We will continue to follow with great interest. If we can be of any further assistance, please contact us. Dionna Person M.D.* Dictated by: SNEHA Dias/BI/rxmra Voice Rec. ID #[id number] Voice Original ID #[id number] Doc ID #[id number] Rev. #0 cc: Dionna Person M.D.* Nadia Garcia M.D., F.A.C.C.* Harpreet Dimas M.D.* Romana Nolasco M.D. <start header> [place] [address] CONSULTATION PATIENT NAME: CRUZ SANCHEZ 1 [facility] NO: [id number] DATE OF : 1950 <end header> DO NOT TEXT EDIT THIS LINE :[id number]:[id number]: Authenticated by DIONNA PERSON M.D. On 07/16/2013 05:14:41 PM documented in this encounter OR Notes * Op Note - Interface, See Report - 07/15/2013 3:57 PM EST [place] [address] OPERATIVE REPORT PATIENT NAME: CRUZ SANCHEZ [facility] NO: [id number] DATE OF : 1950 DATE OF OPERATION: PREOPERATIVE DIAGNOSES: 1. Coronary artery disease, three-vessel. 2. Status post myocardial infarction. 3. Unstable angina. POSTOPERATIVE DIAGNOSES: 1. Coronary artery disease, three-vessel. 2. Status post myocardial infarction. 3. Unstable angina. PROCEDURE: Coronary artery bypass x 4 with EVH with saphenous vein graft to the ramus and to the circumflex, another saphenous vein graft to the PDA with left internal mammary artery to the LAD. SURGEON: Harpreet Dimas M.D. ASSISTANTS: LYNN Levine PA-C CROSSCLAMP TIME: 82 minutes. CARDIOPULMONARY BYPASS TIME: 100 minutes. ESTIMATED BLOOD LOSS: 700 mL. INDICATIONS FOR PROCEDURE: The patient is a 63-year-old white male who had a myocardial infarction and was found to have severe three-vessel coronary artery disease. The patient presents for urgent coronary artery bypass surgery at this time. OPERATIVE FINDINGS: The patient had good quality vessels. The vein GRETEL was of reasonable quality. The vein was harvested from the entire right leg using EVH technique. OPERATIVE DESCRIPTION: The patient was brought to the Operating Room and placed under general anesthesia. A [employer] catheter, arterial line and Rubin catheter were placed. The patient was prepped and draped in the usual sterile fashion. Vein was harvested from the entire right leg using EVH technique. Subcutaneous tissue was closed with running 3-0 Vicryl subcuticular stitch. Simultaneously, a median sternotomy incision was then made and the left internal mammary artery was taken down and divided distally. After the patient was heparinized, activated clotting time was confirmed to be adequate. The pericardium was opened. Stay sutures were placed. Two Ethibond sutures were then placed on the ascending aorta and right atrial appendage for cannulation purposes. The patient was cannulated with an arteriovenous cannula. Cardiopulmonary bypass was initiated. The patient was cooled and the aorta was crossclamped. Blood cardioplegia was given. The heart was elevated. The lateral circumflex vessel was opened sharply, extended proximally and distally. An end-to-side anastomosis with running 7-0 Prolene suture was constructed and it was tied down. At this time, the ramus vessel was opened sharply. Side of the vein graft opened and a [id number] anastomosis with running 7-0 Prolene suture was constructed and it was tied down. At this time, the PDA vessel was opened sharply, extended proximally and distally. An end-to-side anastomosis with running 7-0 Prolene suture was constructed and it was tied down. At this time, the LAD was opened in the midportion. OPERATIVE DESCRIPTION (continued): The left internal mammary artery was brought through a pericardial tunnel and anastomosed to this with running 7-0 Prolene suture. Two aortotomies were then made and the proximal vein grafts were carried out with running 6-0 Prolene suture. Prior to tying the last one down, a hotel houseman of cardioplegia was given. The aortic crossclamp was removed. The patient was warmed and weaned from cardiopulmonary bypass in standard fashion. Protamine was administered for reversal of heparin. Decannulation was carried out. A single mediastinal tube and left chest tube were placed. The sternum was reapproximated with #7 wire. The linea alba was closed with #1 Ethibond sutures. Subcutaneous tissue was closed with two layers of running 0 Vicryl, 2-0 and subcuticular 3-0 completed the closure. The patient tolerated the procedure without difficulty. Estimated blood loss was 750 mL. Harpreet Dimas M.D.* AGR/rxmjh Voice Rec. ID #[id number] Original Voice Rec. 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 On 07/23/2013 03:06:48 PM documented in this encounter Plan of Treatment Upcoming Encounters Date Type Department Care Team (Late st Contact Info) Description 04/08/2025 1:00 PM EDT Appointment [facility] AT [address] [address] 04/15/2025 1:30 PM EDT Office Visit [facility] HEMATOLOGY & ONCOLOGY [address] [facility] [address] [place] [address] Talisha Ozuna APRN [address] [facility] [address] [place] [address] 07/09/2025 11:30 AM EST Office Visit [facility] CARDIOLOGY [address] [facility] [address] [id number] Nadia Garcia MD [address] [place], [place] [id number] 08/12/2025 10:30 AM EST Office Visit [facility] CARDIOLOGY [address] [place] [address] Vandana Ramirez APRN [address] [place] [address] documented as of this encounter Procedures Procedure Name Priority Date/Time Associated Diagnosis Comments CREATININE SERUM (KIDNEY FUNCTION) GFR COMPONENT Routine 07/22/2013 5:15 AM EST CREATININE SERUM (KIDNEY FUNCTION) GFR COMPONENT Routine 07/21/2013 5:42 AM EST POCT GLUCOSE FINGERSTICK Routine 07/20/2013 12:44 PM EST XR CHEST 1 VW Routine 07/20/2013 5:12 AM EST CBC (NO DIFF) Routine 07/20/2013 3:56 AM EST BASIC METABOLIC PANEL Routine 07/20/2013 3:56 AM EST PROTIME-INR Routine 07/19/2013 4:02 AM EST CBC (NO DIFF) Routine 07/19/2013 4:02 AM EST CREATININE SERUM (KIDNEY FUNCTION) GFR COMPONENT Routine 07/19/2013 4:02 AM EST BASIC METABOLIC PANEL Routine 07/19/2013 4:02 AM EST US RENAL BILATERAL Routine 07/18/2013 6: 07 PM EST POCT GLUCOSE FINGERSTICK Routine 07/18/2013 11:58 AM EST POCT GLUCOSE FINGERSTICK Routine 07/18/2013 7:20 AM EST XR CHEST 1 VW Routine 07/18/2013 5:17 AM EST CBC (NO DIFF) Routine 07/18/2013 4:25 AM EST MAGNESIUM Routine 07/18/2013 4:25 AM EST BASIC METABOLIC PANEL Routine 07/18/2013 4:25 AM EST POCT GLUCOSE FINGERSTICK Routine 07/17/2013 7:54 PM EST POCT GLUCOSE FINGERSTICK Routine 07/17/2013 3:44 PM EST POCT GLUCOSE FINGERSTICK Routine 07/17/2013 11:56 AM EST POCT GLUCOSE FINGERSTICK Routine 07/17/2013 10:03 AM EST POCT GLUCOSE FINGERSTICK Routine 07/17/2013 8:04 AM EST POCT GLUCOSE FINGERSTICK Routine 07/17/2013 6:20 AM EST XR CHEST 1 VW Routine 07/17/2013 5:15 AM EST POCT GLUCOSE FINGERSTICK Routine 07/17/2013 3:56 AM EST P2Y12 PLATELET INHIBITION Routine 07/17/2013 3:15 AM EST CBC (NO DIFF) Routine 07/17/2013 3:15 AM EST MAGNESIUM Routine 07/17/2013 3:15 AM EST BASIC METABOLIC PANEL Routine 07/17/2013 3:15 AM EST POCT GLUCOSE FINGERSTICK Routine 07/17/2013 2:01 AM EST HEMOGLOBIN AND HEMATOCRIT, BLOOD Routine 07/17/2013 12:09 AM EST POTASSIUM Routine 07/17/2013 12:09 AM EST POCT GLUCOSE FINGERSTICK Routine 07/16/2013 11:57 PM EST POCT GLUCOSE FINGERSTICK Routine 07/16/2013 10:34 PM EST BLOOD GAS, ARTERIAL Routine 07/16/2013 9 :15 PM EST POCT GLUCOSE FINGERSTICK Routine 07/16/2013 8:55 PM EST BLOOD GAS, ARTERIAL Routine 07/16/2013 8 :54 PM EST HEMOGLOBIN AND HEMATOCRIT, BLOOD Routine 07/16/2013 7:56 PM EST POTASSIUM Routine 07/16/2013 7:56 PM EST POCT GLUCOSE FINGERSTICK Routine 07/16/2013 6:43 PM EST POCT GLUCOSE FINGERSTICK Routine 07/16/2013 4:45 PM EST CONVERTED (HISTORICAL) PLATELET PHERESIS Routine 07/16/2013 4:29 PM EST CONVERTED (HISTORICAL) FRESH FROZEN PLASMA Routine 07/16/2013 4:29 PM EST HEMOGLOBIN AND HEMATOCRIT, BLOOD Routine 07/16/2013 3:40 PM EST POTASSIUM Routine 07/16/2013 3:40 PM EST HEMOGLOBIN AND HEMATOCRIT, BLOOD Routine 07/16/2013 3:17 PM EST PLATELET COUNT Routine 07/16/2013 3:17 PM EST POCT GLUCOSE FINGERSTICK Routine 07/16/2013 2:02 PM EST XR CHEST 1 VW Routine 07/16/2013 1:29 PM EST FIBRIN SPLIT PRODUCTS Routine 07/16/2013 1:05 PM EST APTT Routine 07/16/2013 1:05 PM EST PROTIME-INR Routine 07/16/2013 1:05 PM EST FIBRINOGEN Routine 07/16/2013 1:05 PM EST PLATELET COUNT Routine 07/16/2013 1:05 PM EST URINALYSIS, MICROSCOPIC ONLY Routine 07/16/2013 12:43 PM EST URINALYSIS WITHOUT MICROSCOPIC (NO CULTURE) Routine 07/16/2013 12:43 PM EST URINE CULTURE Routine 07/16/2013 12:43 PM EST MAGNESIUM Routine 07/16/2013 12:23 PM EST BASIC METABOLIC PANEL Routine 07/16/2013 12:23 PM EST BLOOD GAS, ARTERIAL Routine 07/16/2013 1 2:14 PM EST POCT GLUCOSE FINGERSTICK Routine 07/16/2013 12:07 PM EST CBC (NO DIFF) Routine 07/16/2013 12:00 PM EST POCT SURGERY LABS Routine 07/16/2013 10: 53 AM EST POCT ACTIVATED CLOTTING TIME Routine 07/16/2013 10:52 AM EST POCT SURGERY LABS Routine 07/16/2013 9:5 0 AM EST POCT ACTIVATED CLOTTING TIME Routine 07/16/2013 9:49 AM EST POCT SURGERY LABS Routine 07/16/2013 9:2 7 AM EST POCT ACTIVATED CLOTTING TIME Routine 07/16/2013 9:26 AM EST POCT SURGERY LABS Routine 07/16/2013 8:5 4 AM EST POCT ACTIVATED CLOTTING TIME Routine 07/16/2013 8:53 AM EST POCT SURGERY LABS Routine 07/16/2013 8:2 3 AM EST POCT ACTIVATED CLOTTING TIME Routine 07/16/2013 8:22 AM EST POCT SURGERY LABS Routine 07/16/2013 7:1 9 AM EST POCT ACTIVATED CLOTTING TIME Routine 07/16/2013 7:19 AM EST BASIC METABOLIC PANEL Routine 07/16/2013 4:41 AM EST POCT GLUCOSE FINGERSTICK Routine 07/16/2013 4:17 AM EST P2Y12 PLATELET INHIBITION Routine 07/16/2013 4:07 AM EST TROPONIN Routine 07/16/2013 4:07 AM EST APTT Routine 07/16/2013 4:07 AM EST CBC (NO DIFF) Routine 07/16/2013 4:07 AM EST XR CHEST 1 VW Routine 07/15/2013 11:33 PM EST APTT Routine 07/15/2013 10:06 PM EST PROTIME-INR Routine 07/15/2013 10:06 PM EST CBC AND DIFFERENTIAL Routine 07/15/2013 10:06 PM EST MAGNESIUM Routine 07/15/2013 10:06 PM EST CONVERTED (HISTORICAL) PACKED RED BLOOD CELLS Routine 07/15/2013 7:06 PM EST P2Y12 PLATELET INHIBITION Routine 07/15/2013 6:28 PM EST TROPONIN Routine 07/15/2013 6:28 PM EST CBC (NO DIFF) Routine 07/15/2013 6:28 PM EST HEMOGLOBIN A1C Routine 07/15/2013 6:28 PM EST LIPID PANEL Routine 07/15/2013 6:28 PM EST COMPREHENSIVE METABOLIC PANEL Routine 07/15/2013 6:28 PM EST BASIC METABOLIC PANEL Routine 07/15/2013 6:28 PM EST TYPE AND SCREEN Routine 07/15/2013 6:25 PM EST ECHO - CONVERTED Routine 07/15/2013 3:57 PM EST CONVERTED (HISTORICAL) CARDIOVASCULAR STUDIES Routine 07/15/2013 3:57 PM EST CARDIAC CATHETERIZATION Routine 07/15/19 14 3:57 PM EST SCANNED EKG 07/15/2013 SCANNED - CARDIOLOGY 07/15/2013 documented in this encounter Results * Creatinine, serum (07/22/2013 5:15 AM EST) Creatinine 0.9 0.6 - 1.3 mg/dL [facility] eGFR 90 ml/min/1.7 32 [facility] Comment: DF by IF @ 07/22/2013 06:04 National Kidney Foundation Guidelines Stage Description GFR 1 Normal or High 90+ 2 Mild decrease 60-89 3 Moderate decrease 30-59 4 Severe decrease 15-29 5 Kidney failure <15 Blood specimen (specimen) 07/22/2013 5:15 AM EST Narrative [facility] - 07/22/2013 6:04 AM EST Specimen Type: Blood Harpreet Dimas MD LAB BLOOD ORDERABLES Final R esult Performing Organization Address [facility] [place] [address], * Creatinine, serum (07/21/2013 5:42 AM EST) Creatinine 0.8 0.6 - 1.3 mg/dL [facility] eGFR 103 ml/min/1.7 32 [facility] Comment: DF by IF @ 07/21/2013 07:32 National Kidney Foundation Guidelines Stage Description GFR 1 Normal or High 90+ 2 Mild decrease 60-89 3 Moderate decrease 30-59 4 Severe decrease 15-29 5 Kidney failure <15 Blood specimen (specimen) 07/21/2013 5:42 AM EST Narrative [facility] - 07/21/2013 7:32 AM EST Specimen Type: Blood Harpreet Dimas MD LAB BLOOD ORDERABLES Final R esult Performing Organization Address [facility] Co de Phone Number [facility] [address] [place] [address], * POCT Glucose Fingerstick (07/20/2013 12:44 PM EST) Glucose 112 75 - 125 mg/dL [facility] Blood specimen (specimen) 07/20/2013 12:44 PM EST Narrative [facility] - 07/20/2013 12:56 PM EST Specimen Type: Blood Historical Provider POINT OF CARE TEST ORDERA BLES Final Result Performing Organization Address [facility] [place] [address], * XR chest 1 vw (07/20/2013 5:12 AM EST) Anatomical Region Laterality Modality Body N/A Radiographic Gretel ging 07/20/2013 5:12 AM EST Narrative 07/20/2013 12:46 PM EST AP PORTABLE CHEST HISTORY: Followup heart surgery. FINDINGS: 1. Compared to previous examination of two days ago, the chest tubes have been discontinued. Pneumothorax is currently not identified. 2. There is considerable enlargement of the cardiac silhouette. Bibasilar pulmonary opacities are identified which are slightly worse than noted two days ago. The mid to upper lung zones are clear. DICTATED: 07/20/13 EDITED: 07/20/13 Ruiz MENDOZA Releasing Heidi MENDOZA Released Date Time- 07/20/13 1353 Procedure Note Arvin Soni MD - 03/24/2015 AP PORTABLE CHEST HISTORY: Followup heart surgery. FINDINGS: 1. Compared to previous examination of two days ago, the chest tubes have been discontinued. Pneumothorax is currently not identified. 2. There is considerable enlargement of the cardiac silhouette. Bibasilar pulmonary opacities are identified which are slightly worse than noted two days ago. The mid to upper lung zones are clear. DICTATED: 07/20/13 EDITED: 07/20/13 Ruiz MENDOZA Releasing Heidi MENDOZA Released Date Time- 07/20/13 1353 Ileana Morales APRN IMG DIAGNOSTIC IMAGING ORDERA BLES Final Result * (ABNORMAL) Basic metabolic panel (07/20/2013 3:56 AM EST) Pathologist [facility] Glucose 100 70 - 100 mg/dL [facility] BUN 26(H) 6 - 20 mg/dL [facility] Creatinine 0.8 0.6 - 1.3 mg/dL [facility] Sodium 143 136 - 145 mmol/L [facility] Potassium 4.1 3.4 - 5.4 mmol/L [facility] Chloride 106 98 - 107 mmol/L [facility] CO2 25 20 - 31 mmol/L [facility] Calcium 8.8 8.7 - 10.4 mg/dL [facility] eGFR 103 ml/min/1.7 32 [facility] Comment: DF by IF @ 07/20/2013 04:35 National Kidney Foundation Guidelines Stage Description GFR 1 Normal or High 90+ 2 Mild decrease 60-89 3 Moderate decrease 30-59 4 Severe decrease 15-29 5 Kidney failure <15 Anion Gap 12(H) 3 - 11 mmol/L [facility] Blood specimen (specimen) 07/20/2013 3:56 AM EST Narrative [facility] - 07/20/2013 4:35 AM EST Specimen Type: Blood Harpreet Dimas MD LAB BLOOD ORDERABLES Final R esult [facility] [address] [place] [address], * (ABNORMAL) CBC (No diff) (07/20/2013 3:56 AM EST) [facility] WBC 9.26 3.50 - 10.80 K/mcL [facility] RBC 3.30(L) 4.20 - 5.76 M/[facility] Hemoglobin 9.7(L) 13.1 - 17.5 g/dL [facility] Hematocrit 29.9(L) 38.9 - 50.9 % [facility] MCV 90.6 80.0 - 99.0 fL [facility] MCH 29.4 27.0 - 31.0 pg [facility] MCHC 32.4 32.0 - 36.0 g/dL [facility] RDW-CV 15.5(H) 11.3 - 14.5 % [facility] Platelets 175 150 - 450 K/mcL [facility] Blood specimen (specimen) 07/20/2013 3:56 AM EST [facility] - 07/20/2013 4:27 AM EST Specimen Type: Blood Harpreet Dimas MD LAB BLOOD ORDERABLES Final R esult Performing Organization Address City/[facility] [place] [address], * Creatinine, serum (07/19/2013 4:02 AM EST) Creatinine 1.1 0.6 - 1.3 mg/dL [facility] eGFR 72 ml/min/1.7 32 [facility] Comment: DF by IF @ 07/19/2013 04:26 National Kidney Foundation Guidelines Stage Description GFR 1 Normal or High 90+ 2 Mild decrease 60-89 3 Moderate decrease 30-59 4 Severe decrease 15-29 5 Kidney failure <15 Blood specimen (specimen) 07/19/2013 4:02 AM EST [facility] - 07/19/2013 4:26 AM EST Specimen Type: Blood Harpreet Dimas MD LAB BLOOD ORDERABLES [place] [address], * (ABNORMAL) Basic metabolic panel (07/19/2013 4:02 AM EST) Glucose 95 70 - 100 mg/dL [facility] BUN 22(H) 6 - 20 mg/dL [facility] Creatinine 1.1 0.6 - 1.3 mg/dL [facility] Sodium 141 136 - 145 mmol/L [facility] Potassium 4.0 3.4 - 5.4 mmol/L [facility] Chloride 108(H) 98 - 107 mmol/L [facility] CO2 30 20 - 31 mmol/L [facility] Calcium 8.6(L) 8.7 - 10.4 mg/dL [facility] eGFR 72 ml/min/1.7 32 [facility] Comment: DF by IF @ 07/19/2013 04:26 National Kidney Foundation Guidelines Stage Description GFR 1 Normal or High 90+ 2 Mild decrease 60-89 3 Moderate decrease 30-59 4 Severe decrease 15-29 5 Kidney failure <15 Anion Gap 3 3 - 11 mmol/L [facility] Blood specimen (specimen) 07/19/2013 4:02 AM EST Narrative [facility] - 07/19/2013 4:26 AM EST Specimen Type: Blood Harpreet Dimas MD LAB BLOOD ORDERABLES Final R esult [facility] [address] [place] [address], * (ABNORMAL) CBC (No diff) (07/19/2013 4:02 AM EST) WBC 7.90 3.50 - 10.80 [facility] RBC 3.02(L) 4.20 - 5.76 [facility] Hemoglobin 8.9(L) 13.1 - 17.5 g/dL [facility] Hematocrit 27.5(L) 38.9 - 50.9 % [facility] MCV 91.1 80.0 - 99.0 fL [facility] MCH 29.5 27.0 - 31.0 pg [facility] MCHC 32.4 32.0 - 36.0 g/dL [facility] RDW-CV 15.7(H) 11.3 - 14.5 % [facility] Platelets 141(L) 150 - 450 K/mcL [facility] Blood specimen (specimen) 07/19/2013 4:02 AM EST [facility] - 07/19/2013 4:10 AM EST Specimen Type: Blood us Harpreet Dimas MD LAB BLOOD ORDERABLES Final R esult Performing Organization Address [facility] [place] [address], * (ABNORMAL) Protime-INR (07/19/2013 4:02 AM EST) Protime 12.0(H) 9.6 - 11.5 Seconds [facility] INR 1.11 [facility] Comment: US by IF @ 07/19/2013 04:25 Therapeutic Ranges for INR: 2.0-3.0 (PT 20-30) 2.5-3.5 (PT 25-34) Blood specimen (specimen) 07/19/2013 4:02 AM EST [facility] - 07/19/2013 4:25 AM EST Specimen Type: Blood us Harper Roa MD LAB BLOOD ORDERABLES Final Re sult Performing Organization Address [facility] [place] [address], * ULTRASOUND RENAL BILATERAL (07/18/2013 6:07 PM EST) Anatomical Region Laterality Modality Body, Abdomen Ultrasound 07/18/2013 6:07 PM EST Narrative 07/19/2013 10:54 AM EST HISTORY: Anuria, evaluate for obstruction PORTABLE BILATERAL RENAL ULTRASOUND FINDINGS: Some bowel gas is seen overlying both kidneys, which appears to mildly limit the exam, but the kidneys are overall fairly well evaluated. The right kidney measures 11.0 cm in length and the left kidney 11.6 cm. There is no evidence of hydronephrosis, nephrolithiasis, renal soft tissue mass or advanced cortical atrophy. There is an approximately 2.6 X 2.1 cm exophytic cyst of the left lower renal pole, which on the later images of the exam appears to represent a simple cyst. No other cystic changes are seen. The bladder is moderately distended, to approximately 9.5 cm AP diameter, and otherwise appears normal. Bilateral ureteral jets are demonstrated, indicating no significant ureteral obstruction. No ascites is seen. IMPRESSION- 1. 2.6 cm simple appearing left renal cyst. The kidneys otherwise appear within normal limits. In particular, there is no evidence of hydronephrosis. 2. Moderately distended but otherwise normal appearing bladder. DE: 07/19/2013 Health Services Coordinator- WAYNE Dueñas Radiologist- BORIS MAIER Releasing Radiologist- BORIS MAIER Released Date Time- 07/19/13 2129 Procedure Note Boris Lala MD - 04/26/2015 HISTORY: Anuria, evaluate for obstruction PORTABLE BILATERAL RENAL ULTRASOUND FINDINGS: Some bowel gas is seen overlying both kidneys, which appears to mildly limit the exam, but the kidneys are overall fairly well evaluated. The right kidney measures 11.0 cm in length and the left kidney 11.6 cm. There is no evidence of hydronephrosis, nephrolithiasis, renal soft tissue mass or advanced cortical atrophy. There is an approximately 2.6 X 2.1 cm exophytic cyst of the left lower renal pole, which on the later images of the exam appears to represent a simple cyst. No other cystic changes are seen. The bladder is moderately distended, to approximately 9.5 cm AP diameter, and otherwise appears normal. Bilateral ureteral jets are demonstrated, indicating no significant ureteral obstruction. No ascites is seen. IMPRESSION- 1. 2.6 cm simple appearing left renal cyst. The kidneys otherwise appear within normal limits. In particular, there is no evidence of hydronephrosis. 2. Moderately distended but otherwise normal appearing bladder. DE: 07/19/2013 Health Services Coordinator- WAYNE Dueñas Radiologist- BORIS MAIER Releasing Radiologist- BORIS MAIER Released Date Time- 07/19/139 Wayne Tipton MD [facility] ORDERABLES Final Result * POCT Glucose Fingerstick (07/18/2013 11:58 AM EST) Glucose 89 75 - 125 mg/dL [facility] Blood specimen (specimen) 07/18/2013 11:58 AM EST [facility] - 07/18/2013 12:32 PM EST Specimen Type: Blood Historical Provider POINT OF CARE TEST ORDERA BLES Final Result Performing Organization Address City/[facility]/ZIP Co de Phone Number [facility] [address] [place] [address], * POCT Glucose Fingerstick (07/18/2013 7:20 AM EST) Glucose 104 75 - 125 mg/dL [facility] Blood specimen (specimen) 07/18/2013 7:20 AM EST [facility] - 07/18/2013 7:28 AM EST Specimen Type: Blood Historical Provider POINT OF CARE TEST ORDERA BLES Final Result Performing Organization Address [facility]/ZIP Co de Phone Number [facility] [address] [place] [address], * XR chest 1 vw (07/18/2013 5:17 AM EST) Anatomical Region Laterality Modality Body N/A Radiographic Gretel ging 07/18/2013 5:17 AM EST Narrative 07/18/2013 9:17 AM EST PORTABLE CHEST X-RAY HISTORY: Coronary artery disease. FINDINGS: The heart is slightly large. There are small bibasilar infiltrates. A left chest tube is in position. There is a tiny left apical pneumothorax. IMPRESSION- Tiny left apical pneumothorax. There has otherwise been no change since yesterday. E: 07/18/2013 Ruiz XAVIER Releasing Heidi XAVIER Released Date Time- 07/18/13 1150 Procedure Note Vinnie Silva MD - 03/24/2015 PORTABLE CHEST X-RAY HISTORY: Coronary artery disease. FINDINGS: The heart is slightly large. There are small bibasilar infiltrates. A left chest tube is in position. There is a tiny left apical pneumothorax. IMPRESSION- Tiny left apical pneumothorax. There has otherwise been no change since yesterday. E: 07/18/2013 Ruiz XAVIER Releasing Hiedi XAVIER Released Date Time- 07/18/13 1150 Harpreet Dimas MD [facility] DIAGNOSTIC IMAGING ORDER ANA Final Result * (ABNORMAL) Magnesium (07/18/2013 4:25 AM EST) Magnesium 2.6(H) 1.7 - 2.4 mg/dL [facility] Blood specimen (specimen) 07/18/2013 4:25 AM EST Narrative [facility] - 07/18/2013 4:53 AM EST Specimen Type: Blood Harpreet Dimas MD LAB BLOOD ORDERABLES Final R esult Performing Organization Address City/[facility] Co de Phone Number [facility] [address] [place] [address], * (ABNORMAL) Basic metabolic panel (07/18/2013 4:25 AM EST) Glucose 102(H) 70 - 100 mg/dL [facility] BUN 20 6 - 20 mg/dL [facility] Creatinine 1.4(H) 0.6 - 1.3 mg/dL [facility] Sodium 142 136 - 145 mmol/L [facility] Potassium 4.6 3.4 - 5.4 mmol/L [facility] Chloride 108(H) 98 - 107 mmol/L [facility] CO2 27 20 - 31 mmol/L [facility] Calcium 8.6(L) 8.7 - 10.4 mg/dL [facility] eGFR 54 ml/min/1.7 32 [facility] Comment: DF by IF @ 07/18/2013 04:51 National Kidney Foundation Guidelines Stage Description GFR 1 Normal or High 90+ 2 Mild decrease 60-89 3 Moderate decrease 30-59 4 Severe decrease 15-29 5 Kidney failure <15 Anion Gap 7 3 - 11 mmol/L [facility] Blood specimen (specimen) 07/18/2013 4:25 AM EST Narrative [facility] - 07/18/2013 4:53 AM EST Specimen Type: Blood Harpreet Dimas MD LAB BLOOD ORDERABLES Final R esult Performing Organization Address City/[facility] de Phone Number [facility] [address] [place] [address], * (ABNORMAL) CBC (No diff) (07/18/2013 4:25 AM EST) WBC 10.45 3.50 - 10.80 K/[facility] RBC 3.43(L) 4.20 - 5.76 /[facility] Hemoglobin 10.3(L) 13.1 - 17.5 g/dL [facility] Hematocrit 31.5(L) 38.9 - 50.9 % [facility] MCV 91.8 80.0 - 99.0 fL [facility] MCH 30.0 27.0 - 31.0 pg [facility] MCHC 32.7 32.0 - 36.0 g/dL [facility] RDW-CV 15.9(H) 11.3 - 14.5 % [facility] Platelets 135(L) 150 - 450 [facility] Blood specimen (specimen) 07/18/2013 4:25 AM EST [facility] - 07/18/2013 4:42 AM EST Specimen Type: Blood Harpreet Dimas MD LAB BLOOD ORDERABLES Final R esult Performing Organization Address City/[facility] Co de Phone Number [facility] [address] [place] [address], * POCT Glucose Fingerstick (07/17/2013 7:54 PM EST) Glucose 121 75 - 125 mg/dL [facility] Blood specimen (specimen) 07/17/2013 7:54 PM EST [facility] - 07/17/2013 8:23 PM EST Specimen Type: Blood Isabel Provider POINT OF CARE TEST ORDERA BLES Final Result Performing Organization Address [facility] de Phone Number [facility] [address] [place] [address], * POCT Glucose Fingerstick (07/17/2013 3:44 PM EST) Glucose 119 75 - 125 mg/dL [facility] Blood specimen (specimen) 07/17/2013 3:44 PM EST [facility] - 07/17/2013 3:56 PM EST Specimen Type: Blood us Historical Provider POINT OF CARE TEST ORDERA BLES Final Result Performing Organization Address [facility] Phone Number [facility] [address] [place] [address], * POCT Glucose Fingerstick (07/17/2013 11:56 AM EST) Glucose 113 75 - 125 mg/dL [facility] Blood specimen (specimen) 07/17/2013 11:56 AM EST [facility] - 07/17/2013 12:23 PM EST Specimen Type: Blood us Historical Provider POINT OF CARE TEST ORDERA BLES Final Result Performing Organization Address [facility] de Phone Number [facility] [address] [place] [address], * POCT Glucose Fingerstick (07/17/2013 10:03 AM EST) Glucose 116 75 - 125 mg/dL [facility] Blood specimen (specimen) 07/17/2013 10:03 AM EST [facility] - 07/17/2013 10:27 AM EST Specimen Type: Blood us Historical Provider POINT OF CARE TEST ORDERA BLES Final Result Performing Organization Address City/[facility] [facility] de Phone Number [facility] [address] [place] [address], * POCT Glucose Fingerstick (07/17/2013 8:04 AM EST) Glucose 117 75 - 125 mg/dL [facility] Blood specimen (specimen) 07/17/2013 8:04 AM EST Narrative [facility] - 07/17/2013 8:36 AM EST Specimen Type: Blood Historical Provider MD POINT OF CARE TEST ORDERA BLES Final Result Performing Organization Address [facility] [place] [address], * POCT Glucose Fingerstick (07/17/2013 6:20 AM EST) Glucose 112 75 - 125 mg/dL [facility] Blood specimen (specimen) 07/17/2013 6:20 AM EST Narrative [facility] - 07/17/2013 6:29 AM EST Specimen Type: Blood Historical Provider MD POINT OF CARE TEST ORDERA BLES Final Result Performing Organization Address [facility] de Phone Number [facility] [address] [place] [address], * XR chest 1 vw (07/17/2013 5:15 AM EST) Anatomical Region Laterality Modality Body N/A Radiographic Gretel ging 07/17/2013 5:15 AM EST Narrative 07/17/2013 9:17 AM EST AP PORTABLE CHEST: HISTORY: followup heart surgery FINDINGS: 1. Compared to previous examinations of yesterday, ET tube has been removed. 2. The central and leftward chest tubes are well positioned. The [employer] catheter is in the base of the right main pulmonary artery. 3. There is cardiomegaly with bibasilar atelectatic opacities. The mid and upper lung zones are clear. There is no active edema and no pneumothorax. E: 07/17/2013 Health Services Coordinator- JONES COTE Reading Radiologist- ARVIN MENDOZA Releasing Radiologist- ARVIN MENDOZA Released Date Time- 07/17/13 0938 Procedure Note Arvin Soni MD - 03/24/2015 AP PORTABLE CHEST: HISTORY: followup heart surgery FINDINGS: 1. Compared to previous examinations of yesterday, ET tube has been removed. 2. The central and leftward chest tubes are well positioned. The [employer] catheter is in the base of the right main pulmonary artery. 3. There is cardiomegaly with bibasilar atelectatic opacities. The mid and upper lung zones are clear. There is no active edema and no pneumothorax. E: 07/17/2013 Health Services CoordinatorJet COTE Reading Radiologist- ARVIN MENDOZA Releasing RadiologistJet MENDOZA Released Date Time- 07/17/13 0938 Harpreet Dimas MD IM DIAGNOSTIC IMAGING ORDER ANA Final Result * POCT Glucose Fingerstick (07/17/2013 3:56 AM EST) Glucose 121 75 - 125 mg/dL [facility] Blood specimen (specimen) 07/17/2013 3:56 AM EST Narrative [facility] - 07/17/2013 4:20 AM EST Specimen Type: Blood Isabel Pak MD POINT OF CARE TEST ORDERA BLES Final Result Performing Organization Address [facility] de Phone Number [facility] [address] [place] [address], * P2Y12 Platelet Inhibition (07/17/2013 3:15 AM EST) P2Y12 Reactivity Unit 235 PRU [facility] Comment: DF by [id number] @ 07/17/2013 04:20 Test results are reported in P2Y12 Reaction Units (PRU). This measures the extent of platelet aggregation in the presence of a P2Y12 inhibitor. P2Y12 results of less than 208 PRU are associated with expected anti-platelet effect. P2Y12 results of greater than 208 PRU are indicative of a decreased response to P2Y12 inhibitors. Pre-surgical P2Y12 values should be greater than 250 PRU to ensure adequate coagulation and prevent bleeding. The results of a study performed by the test drafter mechanical are summarized below: % Inhibition Threshold PRU Threshold ARSENIO AUC 10% 259 0.91 20% 237 0.93 30% 214 0.95 40% 187 0.97 50% 159 0.98 60% 131 0.99 Blood specimen (specimen) 07/17/2013 3:15 AM EST [facility] - 07/17/2013 4:20 AM EST Specimen Type: Blood Harpreet Dimas MD LAB BLOOD ORDERABLES Final R esult Performing Organization Address City/[facility] Co de Phone Number [facility] [address] [place] [address], * Magnesium (07/17/2013 3:15 AM EST) Magnesium 2.4 1.7 - 2.4 mg/dL [facility] Blood specimen (specimen) 07/17/2013 3:15 AM EST [facility] - 07/17/2013 3:41 AM EST Specimen Type: Blood Harpreet Dimas MD LAB BLOOD ORDERABLES Final R esult [facility] [address] [place] [address], * (ABNORMAL) Basic metabolic panel (07/17/2013 3:15 AM EST) Glucose 120(H) 70 - 100 mg/dL [facility] BUN 12 6 - 20 mg/dL [facility] Creatinine 1.2 0.6 - 1.3 mg/dL [facility] Sodium 144 136 - 145 mmol/L [facility] Potassium 4.7 3.4 - 5.4 mmol/L [facility] Chloride 109(H) 98 - 107 mmol/L [facility] CO2 26 20 - 31 mmol/L [facility] Calcium 8.1(L) 8.7 - 10.4 mg/dL [facility] eGFR 65 ml/min/1.7 32 [facility] Comment: DF by IF @ 07/17/2013 03:41 [employer] Guidelines Stage Description GFR 1 Normal or High 90+ 2 Mild decrease 60-89 3 Moderate decrease 30-59 4 Severe decrease 15-29 5 Kidney failure <15 Anion Gap 9 3 - 11 mmol/L [facility] Blood specimen (specimen) 07/17/2013 3:15 AM EST Narrative [facility] - 07/17/2013 3:41 AM EST Specimen Type: Blood Harpreet Dimas MD LAB BLOOD ORDERABLES Final R esult [facility] [address] [place] [address], * (ABNORMAL) CBC (No diff) (07/17/2013 3:15 AM EST) WBC 13.00(H) 3.50 - 10.80 K/[facility] RBC 3.45(L) 4.20 - 5.76 /[facility] Hemoglobin 10.3(L) 13.1 - 17.5 g/dL [facility] Hematocrit 30.7(L) 38.9 - 50.9 % [facility] MCV 89.0 80.0 - 99.0 fL [facility] MCH 29.9 27.0 - 31.0 pg [facility] MCHC 33.6 32.0 - 36.0 g/dL [facility] RDW-CV 15.4(H) 11.3 - 14.5 % [facility] Platelets 162 150 - 450 K/[facility] Comment:Results checked Blood specimen (specimen) 07/17/2013 3:15 AM EST [facility] - 07/17/2013 3:30 AM EST Specimen Type: Blood Harpreet Dimas MD LAB BLOOD ORDERABLES Final R esult Performing Organization Address City/[facility] [place] [address], * (ABNORMAL) POCT Glucose Fingerstick (07/17/2013 2:01 AM EST) Glucose 127(H) 75 - 125 mg/dL [facility] Blood specimen (specimen) 07/17/2013 2:01 AM EST [facility] - 07/17/2013 2:17 AM EST Specimen Type: Blood Isabel Pak MD POINT OF CARE TEST ORDERA BLES Final Result Performing Organization Address [facility] [place] [address], * Potassium (07/17/2013 12:09 AM EST) Potassium 4.5 3.4 - 5.4 mmol/L [facility] Blood specimen (specimen) 07/17/2013 12:09 AM EST [facility] - 07/17/2013 12:30 AM EST Specimen Type: Blood Harpreet Dimas MD LAB BLOOD ORDERABLES Final R esult Performing Organization Address [facility] Co de Phone Number [facility] [address] [place] [address], * (ABNORMAL) Hemoglobin and hematocrit, blood (07/17/2013 12:09 AM EST) Hemoglobin 10.5(L) 13.1 - 17.5 g/dL [facility] Hematocrit 31.3(L) 38.9 - 50.9 % [facility] Blood specimen (specimen) 07/17/2013 12:09 AM EST [facility] - 07/17/2013 12:38 AM EST Specimen Type: Blood Harpreet Dimas MD LAB BLOOD ORDERABLES Final R esult Performing Organization Address [facility] Phone Number [facility] [address] [place] [address], * (ABNORMAL) POCT Glucose Fingerstick (07/16/2013 11:57 PM EST) Glucose 135(H) 75 - 125 mg/dL [facility] Blood specimen (specimen) 07/16/2013 11:57 PM EST [facility] - 07/17/2013 12:30 AM EST Specimen Type: Blood Isabel Pak MD POINT OF CARE TEST ORDERA BLES Final Result Performing Organization Address [facility] Co de Phone Number [facility] [address] [place] [address], * (ABNORMAL) POCT Glucose Fingerstick (07/16/2013 10:34 PM EST) Glucose 133(H) 75 - 125 mg/dL [facility] Blood specimen (specimen) 07/16/2013 10:34 PM EST Narrative [facility] - 07/16/2013 10:48 PM EST Specimen Type: Blood us Historical Provider POINT OF CARE TEST ORDERA BLES Final Result [facility] [address] [place] [address], * (ABNORMAL) Blood gas, arterial (07/16/2013 9:15 PM EST) pH, Arterial 7.42 7.35 - 7.45 [facility] pCO2, Arterial 41.5 35.0 - 45.0 mmHg [facility] pO2, Arterial 119.0(H) 83.0 - 108.0 mmHg [facility] Base Excess 2.3(H) -2.0 - 2.0 mmol/L [facility] HCO3, Arterial 26.3(H) 20.0 - 26.0 mmol/L [facility] CO2 Content 27.6(H) 23.0 - 27.0 mmol/L [facility] Hemoglobin, Blood Gas 10.2(L) 12.0 - 17.5 g/dL [facility] O2 Saturation, Arterial 96.6 94.0 - 99.0 % [facility] Temperature 37.4 Degrees [facility] CFIO2 40 % [facility] Site Arterial Line [facility] Hematocrit 31.4 % [facility] Carboxyhemoglobin 1.3 0.0 - 2.0 % [facility] Methemoglobin 0.9 0.0 - 1.5 % [facility] Hemoglobin 1.2 % [facility] Arterial blood specimen (specimen) 07/16/2013 9:15 PM EST [facility] - 07/16/2013 9:17 PM EST Specimen Type: Arterial Nadia Garcia MD LAB BLOOD ORDERABLES Fi nal Result Performing Organization Address [facility] [place] [address], * (ABNORMAL) POCT Glucose Fingerstick (07/16/2013 8:55 PM EST) Pathologist [facility] Glucose 131(H) 75 - 125 mg/dL [facility] Blood specimen (specimen) 07/16/2013 8:55 PM EST [facility] - 07/16/2013 9:06 PM EST Specimen Type: Blood Isabel Pak MD POINT OF CARE TEST ORDERA BLES Final Result Performing Organization Address [facility] Phone Number [facility] [address] [place] [address], * (ABNORMAL) Blood gas, arterial (07/16/2013 8:54 PM EST) pH, Arterial 7.46(H) 7.35 - 7.45 [facility] pCO2, Arterial 36.3 35.0 - 45.0 mmHg [facility] pO2, Arterial 129.0(H) 83.0 - 108.0 mmHg [facility] Base Excess 2.4(H) -2.0 - 2.0 mmol/L [facility] HCO3, Arterial 25.6 20.0 - 26.0 mmol/L [facility] CO2 Content 26.7 23.0 - 27.0 mmol/L [facility] Hemoglobin, Blood Gas 10.1(L) 12.0 - 17.5 g/dL [facility] O2 Saturation, Arterial 96.7 94.0 - 99.0 % [facility] Temperature 37.4 Degrees [facility] CFIO2 40 % [facility] Site Arterial Line [facility] Hematocrit 31.3 % [facility] Carboxyhemoglobin 1.5 0.0 - 2.0 % [facility] Methemoglobin 0.8 0.0 - 1.5 % [facility] Hemoglobin 1.0 % [facility] Arterial blood specimen (specimen) 07/16/2013 8:54 PM EST [facility] - 07/16/2013 8:57 PM EST Specimen Type: Arterial Nadia Garcia MD LAB BLOOD ORDERABLES Fi nal Result Performing Organization Address [facility] [place] [address], * Potassium (07/16/2013 7:56 PM EST) Potassium 4.5 3.4 - 5.4 mmol/L [facility] Blood specimen (specimen) 07/16/2013 7:56 PM EST [facility] - 07/16/2013 8:30 PM EST Specimen Type: Blood Harpreet Dimas MD LAB BLOOD ORDERABLES Final R esult Performing Organization Address [facility] [place] [address], * (ABNORMAL) Hemoglobin and hematocrit, blood (07/16/2013 7:56 PM EST) Hemoglobin 10.1(L) 13.1 - 17.5 g/dL [facility] Hematocrit 30.1(L) 38.9 - 50.9 % [facility] Blood specimen (specimen) 07/16/2013 7:56 PM EST [facility] - 07/16/2013 8:04 PM EST Specimen Type: Blood Harpreet Dimas MD LAB BLOOD ORDERABLES Final R esult Performing Organization Address [facility] de Phone Number [facility] [address] [place] [address], * (ABNORMAL) POCT Glucose Fingerstick (07/16/2013 6:43 PM EST) Glucose 148(H) 75 - 125 mg/dL [facility] Blood specimen (specimen) 07/16/2013 6:43 PM EST [facility] - 07/16/2013 6:56 PM EST Specimen Type: Blood Historical Provider POINT OF CARE TEST ORDERA BLES Final Result Performing Organization Address [facility] de Phone Number [facility] [address] [place] [address], * (ABNORMAL) POCT Glucose Fingerstick (07/16/2013 4:45 PM EST) Glucose 132(H) 75 - 125 mg/dL [facility] Blood specimen (specimen) 07/16/2013 4:45 PM EST [facility] - 07/16/2013 4:57 PM EST Specimen Type: Blood Historical Provider POINT OF CARE TEST ORDERA BLES Final Result Performing Organization Address [facility] de Phone Number [facility] [address] [place] [address], * CONVERTED FFP (07/16/2013 4:29 PM EST) Product ID - Unit 1 FFP [facility] Unit Number - Unit 1 [id number] [facility] Blood Type - Unit 1 AB Pos [facility] Product Code - Unit 1 [id number] [facility] Status Info - Unit 1 Transfused [facility] Product ID - Unit 2 FFP [facility] Unit Number - Unit 2 [id number] [facility] Blood Type - Unit 2 AB Pos [facility] Product Code - Unit 2 [id number] [facility] Status Info - Unit 2 Transfused [facility] Blood specimen (specimen) 07/16/2013 4:29 PM EST [facility] - 07/17/2013 6:10 AM EST Specimen Type: Blood Harpreet Dimas MD BLOOD BANK TEST ORDERABLES F inal Result Performing Organization Address [facility]/[place] [address], * Platelet Pheresis (07/16/2013 4:29 PM EST) Product ID - Unit 1 Platelets [facility] Unit Number - Unit 1 [id number] [facility] Blood Type - Unit 1 B Pos [facility] Product Code - Unit 1 [id number] [facility] Status Info - Unit 1 Transfused [facility] Blood specimen (specimen) 07/16/2013 4:29 PM EST [facility] - 07/17/2013 6:10 AM EST Specimen Type: Blood Harpreet Dimas MD BLOOD BANK TEST ORDERABLES F inal Result [facility] [address] [place] [address], * Potassium (07/16/2013 3:40 PM EST) Potassium 4.1 3.4 - 5.4 mmol/L [facility] Blood specimen (specimen) 07/16/2013 3:40 PM EST [facility] - 07/16/2013 4:30 PM EST Specimen Type: Blood Harpreet Dimas MD LAB BLOOD ORDERABLES Final R esult Performing Organization Address [facility] [place] [address], * (ABNORMAL) Hemoglobin and hematocrit, blood (07/16/2013 3:40 PM EST) Hemoglobin 11.2(L) 13.1 - 17.5 g/dL [facility] Hematocrit 33.8(L) 38.9 - 50.9 % [facility] Blood specimen (specimen) 07/16/2013 3:40 PM EST [facility] - 07/16/2013 3:53 PM EST Specimen Type: Blood Harpreet Dimas MD LAB BLOOD ORDERABLES Final R esult Performing Organization Address [facility] [place] [address], * (ABNORMAL) Platelet count (07/16/2013 3:17 PM EST) Platelets 107(L) 150 - 450 K/mcL [facility] Blood specimen (specimen) 07/16/2013 3:17 PM EST [facility] - 07/16/2013 3:21 PM EST Specimen Type: Blood Harpreet Dimas MD LAB BLOOD ORDERABLES Final R esult Performing Organization Address [facility] de Phone Number [facility] [address] [place] [address], * (ABNORMAL) Hemoglobin and hematocrit, blood (07/16/2013 3:17 PM EST) Hemoglobin 11.8(L) 13.1 - 17.5 g/dL [facility] Hematocrit 34.6(L) 38.9 - 50.9 % [facility] Blood specimen (specimen) 07/16/2013 3:17 PM EST Narrative [facility] - 07/16/2013 3:21 PM EST Specimen Type: Blood Harpreet Dimas MD LAB BLOOD ORDERABLES Final R esult Performing Organization Address City/[facility]/ZIP Co de Phone Number [facility] [address] [place] [address], * POCT Glucose Fingerstick (07/16/2013 2:02 PM EST) Glucose 111 75 - 125 mg/dL [facility] Blood specimen (specimen) 07/16/2013 2:02 PM EST Narrative [facility] - 07/16/2013 2:09 PM EST Specimen Type: Blood Isabel Provider POINT OF CARE TEST ORDERA BLES Final Result Performing Organization Address [facility] [place] [address], * XR chest 1 vw (07/16/2013 1:29 PM EST) Anatomical Region Laterality Modality Body N/A Radiographic Gretel ging 07/16/2013 1:29 PM EST Narrative 07/16/2013 2:27 PM EST PORTABLE CHEST HISTORY: postop CABG There are postoperative cardiac changes. Endotracheal tube is satisfactorily positioned as is a [employer] catheter and left chest tube. There are small areas of bibasilar platelike atelectasis. There is no pneumothorax. IMPRESSION- 1. Support tube are well positioned. 2. Small areas of bibasilar platelike atelectasis. Health Services Coordinator- CLARK Dueñas RadiologistJet XAVIER Releasing Radiologist- Jose Alberto XAVIER Released Date Time- 07/16/13 1639 Procedure Note Vinnie Silva MD - 03/25/2015 PORTABLE CHEST HISTORY: postop CABG There are postoperative cardiac changes. Endotracheal tube is satisfactorily positioned as is a [employer] catheter and left chest tube. There are small areas of bibasilar platelike atelectasis. There is no pneumothorax. IMPRESSION- 1. Support tube are well positioned. 2. Small areas of bibasilar platelike atelectasis. Health Services Coordinator- CLARK Dueñas [employer] XAV[employer] Releasing Radiologist- Jose Alberto XAVIER Released Date Time- 07/16/13 1639 Harpreet Dimas MD IMG DIAGNOSTIC IMAGING ORDER ANA Final Result * (ABNORMAL) Platelet count (07/16/2013 1:05 PM EST) Platelets 105(L) 150 - 450 K/mcL [facility] Blood specimen (specimen) 07/16/2013 1:05 PM EST Narrative [facility] - 07/16/2013 1:50 PM EST Specimen Type: Blood Harpreet Dimas MD LAB BLOOD ORDERABLES Final R esult [facility] [address] [place] [address], [place] [phone] * (ABNORMAL) APTT (07/16/2013 1:05 PM EST) PTT 36(H) 24 - 31 Seconds [facility] Comment: US by IF @ 07/16/2013 13:51 PTT = The equivalent PTT values for the therapeutic range of heparin levels at 0.3 to 0.5 U/ml are 45 to 60 seconds. PTT = The equivalent PTT values for the therapeutic range of heparin levels at 0.3 to 0.5 U/ml are 45 to 60 seconds. Blood specimen (specimen) 07/16/2013 1:05 PM EST Narrative [facility] - 07/16/2013 1:51 PM EST Specimen Type: Blood Harpreet Dimas MD LAB BLOOD ORDERABLES Final R esult Performing Organization Address [facility] [place] [address], * (ABNORMAL) Protime-INR (07/16/2013 1:05 PM EST) Pathologist [facility] Protime 13.5(H) 9.6 - 11.5 Seconds [facility] INR 1.24 [facility] Comment: US by IF @ 07/16/2013 13:51 Therapeutic Ranges for INR: 2.0-3.0 (PT 20-30) 2.5-3.5 (PT 25-34) Blood specimen (specimen) 07/16/2013 1:05 PM EST Narrative [facility] - 07/16/2013 1:51 PM EST Specimen Type: Blood Harpreet Dimas MD LAB BLOOD ORDERABLES Final R esult Performing Organization Address [facility] Co de Phone Number [facility] [address] [place] [address], * (ABNORMAL) Fibrin split products (07/16/2013 1:05 PM EST) Pathologist [facility] FDP 10-40 mcg/mL(A) Less than 10 mcg/mL mcg/mL [facility] Blood specimen (specimen) 07/16/2013 1:05 PM EST [facility] - 07/16/2013 1:56 PM EST Specimen Type: Blood Harpreet Dimas MD LAB BLOOD ORDERABLES Final R esult Performing Organization Address [facility] de Phone Number [facility] [address] [place] [address], * (ABNORMAL) Fibrinogen (07/16/2013 1:05 PM EST) Fibrinogen 176(L) 200 - 400 mg/dL [facility] Blood specimen (specimen) 07/16/2013 1:05 PM EST [facility] - 07/16/2013 1:51 PM EST Specimen Type: Blood Harpreet Dimas MD LAB BLOOD ORDERABLES Final R esult Performing Organization Address [facility] de Phone Number [facility] [address] [place] [address], * Urine culture (07/16/2013 12:43 PM EST) Urine specimen (specimen) Cannula / Unknown 07/16/2013 12:43 PM EST [facility] - 07/18/2013 8:10 AM EST Specimen Type: Urine Specimen Source: Catheterized [facility] - Culture Urine Specimen: Urine Collected: 07/16/2013 12:43 Status: FINAL Last Updated: 07/18/2013 08:10 Culture Result (CR) (Final) No Growth 2 Days us Harpreet Dimas MD MICROBIOLOGY - GENERAL ORDER ANA Final Result Performing Organization Address [facility] [place] [address], * Urinalysis, Microscopic only (07/16/2013 12:43 PM EST) WBC, UA 0-2 NONE SEEN,0-2 /hpf [facility] RBC, UA 0-2 NONE SEEN,0-2 /hpf [facility] Epithelial Cells, UA None Seen NONE SEEN,0-2 /hpf [facility] Bacteria, UA None Seen NONE SEEN /hpf [facility] Hyaline Casts, UA 0-6 0 - 6 /hpf [facility] Urine specimen (specimen) Cannula / Unknown 07/16/2013 12:43 PM EST Narrative [facility] - 07/16/2013 1:00 PM EST Specimen Type: Urine Specimen Source: Catheterized us Harpreet Dimas MD URINE ORDERABLES Final Resul t Performing Organization Address City/State/[facility] [place] [address], * (ABNORMAL) Urinalysis Without Microscopic (07/16/2013 12:43 PM EST) Color, UA Yellow [facility] Appearance, UA Clear [facility] pH, UA 6.5 4.5 - 8.0 [facility] Specific [place], UA 1.011 1.001 - 1.030 [facility] Glucose, UA Negative NEGATIVE mg/dL [facility] Ketones, UA Negative NEGATIVE [facility] Bilirubin, UA Negative NEGATIVE [facility] Blood, UA Moderate(A) NEGATIVE [facility] Protein, UA Negative NEGATIVE mg/dL [facility] Comment: DF by IF @ 07/16/2013 12:54 This test was previously referred to as Albumin Nitrite, UA Negative NEGATIVE [facility] Leukocytes, UA Negative NEGATIVE [facility] Urobilinogen, UA 0.2 0.2 - 1.0 mg/dL [facility] Urine specimen (specimen) Cannula / Unknown 07/16/2013 12:43 PM EST [facility] - 07/16/2013 12:54 PM EST Specimen Type: Urine Specimen Source: Catheterized Harpreet Dimas MD URINE ORDERABLES Final Resul t Performing Organization Address [facility] [place] [address], * (ABNORMAL) Magnesium (07/16/2013 12:23 PM EST) Magnesium 3.1(H) 1.7 - 2.4 mg/dL [facility] Blood specimen (specimen) 07/16/2013 12:23 PM EST [facility] - 07/16/2013 2:34 PM EST Specimen Type: Blood Harpreet Dimas MD LAB BLOOD ORDERABLES Final R esult Performing Organization Address [facility] de Phone Number [facility] [address] [place] [address], * (ABNORMAL) Basic metabolic panel (07/16/2013 12:23 PM EST) Glucose 99 70 - 100 mg/dL [facility] BUN 12 6 - 20 mg/dL [facility] Creatinine 1.0 0.6 - 1.3 mg/dL [facility] Sodium 143 136 - 145 mmol/L [facility] Potassium 3.7 3.4 - 5.4 mmol/L [facility] Chloride 114(H) 98 - 107 mmol/L [facility] CO2 25 20 - 31 mmol/L [facility] Calcium 9.0 8.7 - 10.4 mg/dL [facility] eGFR 80 ml/min/1.7 32 [facility] Comment: DF by IF @ 07/16/2013 14:34 National Kidney [employer] Guidelines Stage Description GFR 1 Normal or High 90+ 2 Mild decrease 60-89 3 Moderate decrease 30-59 4 Severe decrease 15-29 5 Kidney failure <15 Anion Gap 5 3 - 11 mmol/L [facility] Blood specimen (specimen) 07/16/2013 12:23 PM EST Narrative [facility] - 07/16/2013 2:34 PM EST Specimen Type: Blood Harpreet Dimas MD LAB BLOOD ORDERABLES Final R esult [facility] [address] [place] [address], * (ABNORMAL) Blood gas, arterial (07/16/2013 12:14 PM EST) pH, Arterial 7.37 7.35 - 7.45 [facility] pCO2, Arterial 41.5 35.0 - 45.0 mmHg [facility] pO2, Arterial 147.0(H) 83.0 - 108.0 mmHg [facility] Base Excess -1.3 -2.0 - 2.0 mmol/L [facility] HCO3, Arterial 23.7 20.0 - 26.0 mmol/L [facility] CO2 Content 25.0 23.0 - 27.0 mmol/L [facility] Hemoglobin, Blood Gas 14.0 12.0 - 17.5 g/dL [facility] O2 Saturation, Arterial 96.1 94.0 - 99.0 % [facility] Temperature 36.3 Degrees [facility] CFIO2 100 % [facility] Site Arterial Line [facility] Hematocrit 42.9 % [facility] Carboxyhemoglobin 1.7 0.0 - 2.0 % [facility] Methemoglobin 1.1 0.0 - 1.5 % [facility] Hemoglobin 1.1 % [facility] Arterial blood specimen (specimen) 07/16/2013 12:14 PM EST Narrative [facility] - 07/16/2013 12:20 PM EST Specimen Type: Arterial Nadia Garcia MD LAB BLOOD ORDERABLES [place] [address], * POCT Glucose Fingerstick (07/16/2013 12:07 PM EST) Glucose 108 75 - 125 mg/dL [facility] Blood specimen (specimen) 07/16/2013 12:07 PM EST [facility] - 07/16/2013 12:37 PM EST Specimen Type: Blood Isabel Pak MD POINT OF CARE TEST ORDERA BLES Final Result Performing Organization Address [facility] [place] [address], * (ABNORMAL) CBC (No diff) (07/16/2013 12:00 PM EST) WBC 15.94(H) 3.50 - 10.80 K/[facility] RBC 4.67 4.20 - 5.76 M/[facility] Hemoglobin 14.1 13.1 - 17.5 g/dL [facility] Hematocrit 41.4 38.9 - 50.9 % [facility] MCV 88.7 80.0 - 99.0 fL [facility] MCH 30.2 27.0 - 31.0 pg [facility] MCHC 34.1 32.0 - 36.0 g/dL [facility] RDW-CV 15.1(H) 11.3 - 14.5 % [facility] Platelets 112(L) 150 - 450 K/[facility] Blood specimen (specimen) 07/16/2013 12:00 PM EST [facility] - 07/16/2013 12:43 PM EST Specimen Type: Blood Harpreet Dimas MD LAB BLOOD ORDERABLES Final R esult Performing Organization Address City/[facility]/ZIP [place] [address], * (ABNORMAL) POCT Surgery Labs (07/16/2013 10:53 AM EST) pH, Arterial 7.36 7.31 - 7.41 [facility] pCO2, Arterial 41 41.0 - 51.0 mmHg [facility] pO2, Arterial 269(H) 80.0 - 105.0 mmHg [facility] Base Excess -2 -2 - 3 mmol/L [facility] HCO3, Arterial 23.3 23.0 - 28.0 mmol/L [facility] Total CO2 24 24.0 - 29.0 mmol/L [facility] O2 Saturation, Arterial 100(H) 95 - 98 % [facility] Sodium 135(L) 138 - 146 mmol/L [facility] Potassium, Arterial 4.0 3.5 - 4.9 mmol/L [facility] Ionized Calcium 1.44(H) 1.12 - 1.32 mmol/L [facility] Glucose 135(H) 70 - 105 mg/dL [facility] Hematocrit 35.0(L) 38.0 - 51.0 % [facility] Hemoglobin, Blood Gas 11.9(L) 12.0 - 17.0 g/dL [facility] Arterial blood specimen (specimen) 07/16/2013 10:53 AM EST Narrative [facility] - 07/16/2013 11:20 AM EST Specimen Type: Arterial Isabel Provider POINT OF CARE TEST ORDERA BLES Final Result Performing Organization Address City/[facility]/ZIP [place] [address], * (ABNORMAL) POCT activated clotting time (07/16/2013 10:52 AM EST) Activated Clotting Time 138(H) 74 - 125 Seconds [facility] Blood specimen (specimen) 07/16/2013 10:52 AM EST Narrative [facility] - 07/16/2013 11:20 AM EST Specimen Type: Blood us Historical Provider POINT OF CARE TEST ORDERA BLES Final Result [facility] [address] [place] [address], * (ABNORMAL) POCT Surgery Labs (07/16/2013 9:50 AM EST) pH, Arterial 7.40 7.31 - 7.41 [facility] pCO2, Arterial 42 41.0 - 51.0 mmHg [facility] pO2, Arterial 333(H) 80.0 - 105.0 mmHg [facility] Base Excess 1 -2 - 3 mmol/L [facility] HCO3, Arterial 25.9 23.0 - 28.0 mmol/L [facility] Total CO2 27 24.0 - 29.0 mmol/L [facility] O2 Saturation, Arterial 100(H) 95 - 98 % [facility] Sodium 134(L) 138 - 146 mmol/L [facility] Potassium, Arterial 5.7(H) 3.5 - 4.9 mmol/L [facility] Ionized Calcium 0.97(L) 1.12 - 1.32 mmol/L [facility] Glucose 151(H) 70 - 105 mg/dL [facility] Hematocrit 34.0(L) 38.0 - 51.0 % [facility] Hemoglobin, Blood Gas 11.6(L) 12.0 - 17.0 g/dL [facility] Arterial blood specimen (specimen) 07/16/2013 9:50 AM EST [facility] - 07/16/2013 11:20 AM EST Specimen Type: Arterial Historical Provider MD POINT OF CARE TEST ORDERA BLES Final Result Performing Organization Address [facility] de Phone Number [facility] [address] [place] [address], * (ABNORMAL) POCT activated clotting time (07/16/2013 9:49 AM EST) Pathologist [facility] Activated Clotting Time 595(H) 74 - 125 Seconds [facility] Blood specimen (specimen) 07/16/2013 9:49 AM EST [facility] - 07/16/2013 11:20 AM EST Specimen Type: Blood Historical Provider POINT OF CARE TEST ORDERA BLES Final Result Performing Organization Address [facility] Phone Number [facility] [address] [place] [address], * (ABNORMAL) POCT Surgery Labs (07/16/2013 9:27 AM EST) pH, Arterial 7.39 7.31 - 7.41 [facility] pCO2, Arterial 44 41.0 - 51.0 mmHg [facility] pO2, Arterial 351(H) 80.0 - 105.0 mmHg [facility] Base Excess 2 -2 - 3 mmol/L [facility] HCO3, Arterial 26.5 23.0 - 28.0 mmol/L [facility] Total CO2 28 24.0 - 29.0 mmol/L [facility] O2 Saturation, Arterial 100(H) 95 - 98 % [facility] Sodium 134(L) 138 - 146 mmol/L [facility] Potassium, Arterial 5.6(H) 3.5 - 4.9 mmol/L [facility] Ionized Calcium 0.92(L) 1.12 - 1.32 mmol/L [facility] Glucose 142(H) 70 - 105 mg/dL [facility] Hematocrit 32.0(L) 38.0 - 51.0 % [facility] Hemoglobin, Blood Gas 10.9(L) 12.0 - 17.0 g/dL [facility] Arterial blood specimen (specimen) 07/16/2013 9:27 AM EST [facility] - 07/16/2013 11:20 AM EST Specimen Type: Arterial [facility] Provider POINT OF CARE TEST ORDERA BLES Final Result Performing Organization Address [facility] Co de Phone Number [facility] [address] [place] [address], * (ABNORMAL) POCT activated clotting time (07/16/2013 9:26 AM EST) Activated Clotting Time 666(H) 74 - 125 Seconds [facility] Blood specimen (specimen) 07/16/2013 9:26 AM EST [facility] - 07/16/2013 11:20 AM EST Specimen Type: Blood Historical Provider POINT OF CARE TEST ORDERA BLES Final Result Performing Organization Address [facility] Co de Phone Number [facility] [address] [place] [address], * (ABNORMAL) POCT Surgery Labs (07/16/2013 8:54 AM EST) pH, Arterial 7.31 7.31 - 7.41 [facility] pCO2, Arterial 49 41.0 - 51.0 mmHg [facility] pO2, Arterial 489(H) 80.0 - 105.0 mmHg [facility] Base Excess -1 -2 - 3 mmol/L [facility] HCO3, Arterial 24.9 23.0 - 28.0 mmol/L [facility] Total CO2 26 24.0 - 29.0 mmol/L [facility] O2 Saturation, Arterial 100(H) 95 - 98 % [facility] Sodium 137(L) 138 - 146 mmol/L [facility] Potassium, Arterial 4.1 3.5 - 4.9 mmol/L [facility] Ionized Calcium 0.80(L) 1.12 - 1.32 mmol/L [facility] Glucose 92 70 - 105 mg/dL [facility] Hematocrit 36.0(L) 38.0 - 51.0 % [facility] Hemoglobin, Blood Gas 12.2 12.0 - 17.0 g/dL [facility] Arterial blood specimen (specimen) 07/16/2013 8:54 AM EST [facility] - 07/16/2013 11:20 AM EST Specimen Type: Arterial Historical Provider POINT OF CARE TEST ORDERA BLES Final Result Performing Organization Address [facility] Co de Phone Number [facility] [address] [place] [address], * (ABNORMAL) POCT activated clotting time (07/16/2013 8:53 AM EST) Activated Clotting Time 807(H) 74 - 125 Seconds [facility] Blood specimen (specimen) 07/16/2013 8:53 AM EST [facility] - 07/16/2013 11:20 AM EST Specimen Type: Blood Historical Provider POINT OF CARE TEST ORDERA BLES Final Result Performing Organization Address [facility] [place] [address], * (ABNORMAL) POCT Surgery Labs (07/16/2013 8:23 AM EST) pH, Arterial 7.30(L) 7.31 - 7.41 [facility] pCO2, Arterial 49 41.0 - 51.0 mmHg [facility] pO2, Arterial 395(H) 80.0 - 105.0 mmHg [facility] Base Excess -2 -2 - 3 mmol/L [facility] HCO3, Arterial 24.0 23.0 - 28.0 mmol/L [facility] Total CO2 26 24.0 - 29.0 mmol/L [facility] O2 Saturation, Arterial 100(H) 95 - 98 % [facility] Sodium 139 138 - 146 mmol/L [facility] Potassium, Arterial 3.8 3.5 - 4.9 mmol/L [facility] Ionized Calcium 1.07(L) 1.12 - 1.32 mmol/L [facility] Glucose 104 70 - 105 mg/dL [facility] Hematocrit 47.0 38.0 - 51.0 % [facility] Hemoglobin, Blood Gas 16.0 12.0 - 17.0 g/dL [facility] Arterial blood specimen (specimen) 07/16/2013 8:23 AM EST [facility] - 07/16/2013 11:20 AM EST Specimen Type: Arterial Historical Provider POINT OF CARE TEST ORDERA BLES Final Result Performing Organization Address [facility] [place] [address], * (ABNORMAL) POCT activated clotting time (07/16/2013 8:22 AM EST) Activated Clotting Time 812(H) 74 - 125 Seconds [facility] Blood specimen (specimen) 07/16/2013 8:22 AM EST [facility] - 07/16/2013 11:20 AM EST Specimen Type: Blood Historical Provider POINT OF CARE TEST ORDERA BLES Final Result Performing Organization Address City/[facility] Co de Phone Number [facility] [address] [place] [address], * (ABNORMAL) POCT Surgery Labs (07/16/2013 7:19 AM EST) pH, Arterial 7.38 7.31 - 7.41 [facility] pCO2, Arterial 37(L) 41.0 - 51.0 mmHg [facility] pO2, Arterial 62(L) 80.0 - 105.0 mmHg [facility] Base Excess -3(L) -2 - 3 mmol/L [facility] HCO3, Arterial 21.7(L) 23.0 - 28.0 mmol/L [facility] Total CO2 23(L) 24.0 - 29.0 mmol/L [facility] O2 Saturation, Arterial 91(L) 95 - 98 % [facility] Sodium 137(L) 138 - 146 mmol/L [facility] Potassium, Arterial 4.0 3.5 - 4.9 mmol/L [facility] Ionized Calcium 1.17 1.12 - 1.32 mmol/L [facility] Glucose 98 70 - 105 mg/dL [facility] Hematocrit 51.0 38.0 - 51.0 % [facility] Hemoglobin, Blood Gas 17.3(H) 12.0 - 17.0 g/dL [facility] Arterial blood specimen (specimen) 07/16/2013 7:19 AM EST Narrative [facility] - 07/16/2013 11:20 AM EST Specimen Type: Arterial us Historical Provider MD POINT OF CARE TEST ORDERA [place] [address], * (ABNORMAL) POCT activated clotting time (07/16/2013 7:19 AM EST) Activated Clotting Time 127(H) 74 - 125 Seconds [facility] Blood specimen (specimen) 07/16/2013 7:19 AM EST Narrative [facility] - 07/16/2013 11:20 AM EST Specimen Type: Blood Historical Provider POINT OF CARE TEST ORDERA BLES Final Result Performing Organization Address [facility] de Phone Number [facility] [address] [place] [address], * (ABNORMAL) Basic metabolic panel (07/16/2013 4:41 AM EST) Glucose 91 70 - 100 mg/dL [facility] BUN 12 6 - 20 mg/dL [facility] Creatinine 0.9 0.6 - 1.3 mg/dL [facility] Sodium 133(L) 136 - 145 mmol/L [facility] Potassium 3.9 3.4 - 5.4 mmol/L [facility] Chloride 105 98 - 107 mmol/L [facility] CO2 22 20 - 31 mmol/L [facility] Calcium 8.1(L) 8.7 - 10.4 mg/dL [facility] eGFR 90 ml/min/1.7 32 [facility] Comment: DF by IF @ 07/16/2013 05:49 National Kidney [employer] Guidelines Stage Description GFR 1 Normal or High 90+ 2 Mild decrease 60-89 3 Moderate decrease 30-59 4 Severe decrease 15-29 5 Kidney failure <15 Anion Gap 6 3 - 11 mmol/L [facility] Blood specimen (specimen) 07/16/2013 4:41 AM EST Narrative [facility] - 07/16/2013 5:52 AM EST Specimen Type: Blood us Historical Provider LAB BLOOD ORDERABLES Flora l Result Performing Organization Address [facility] Co de Phone Number [facility] [address] [place] [address] * POCT Glucose Fingerstick (07/16/2013 4:17 AM EST) Pathologist [facility] Glucose 96 75 - 125 mg/dL [facility] Blood specimen (specimen) 07/16/2013 4:17 AM EST [facility] - 07/16/2013 4:31 AM EST Specimen Type: Blood Isabel Pak MD POINT OF CARE TEST ORDERA BLES Final Result Performing Organization Address [facility] [place] [address], * (ABNORMAL) APTT (07/16/2013 4:07 AM EST) [facility] PTT Heparin Therapy 40(H) 24 - 31 Seconds [facility] Comment: Called to, read back and verified by: SUE LASSITER,07/16/13 0501,KL PTT = The equivalent PTT values for the therapeutic range of heparin levels at 0.3 to 0.5 U/ml are 45 to 60 seconds. Blood specimen (specimen) 07/16/2013 4:07 AM EST [facility] - 07/16/2013 5:01 AM EST Specimen Type: Blood Nadia Garcia MD LAB BLOOD ORDERABLES Fi nal Result Performing Organization Address [facility] [place] [address], * P2Y12 Platelet Inhibition (07/16/2013 4:07 AM EST) [facility] P2Y12 Reactivity Unit Unable to perform testing, due to insufficient platelet activity. Patients who have been administered Aggrastat or Integrilin within two days, or ReoPro within two weeks, should not be tested. PRU [facility] Comment: DF by [id number] @ 07/16/2013 06:30 Test results are reported in P2Y12 Reaction Units (PRU). This measures the extent of platelet aggregation in the presence of a P2Y12 inhibitor. P2Y12 results of less than 208 PRU are associated with expected anti-platelet effect. P2Y12 results of greater than 208 PRU are indicative of a decreased response to P2Y12 inhibitors. Pre-surgical P2Y12 values should be greater than 250 PRU to ensure adequate coagulation and prevent bleeding. The results of a study performed by the test drafter mechanical are summarized below: % Inhibition Threshold PRU Threshold ARSENIO AUC 10% 259 0.91 20% 237 0.93 30% 214 0.95 40% 187 0.97 50% 159 0.98 60% 131 0.99 Blood specimen (specimen) 07/16/2013 4:07 AM EST [facility] - 07/16/2013 6:30 AM EST Specimen Type: Blood Nadia Garcia MD LAB BLOOD ORDERABLES [facility] Result [facility] [address] [place] [address], * (ABNORMAL) CBC (No diff) (07/16/2013 4:07 AM EST) WBC 11.87(H) 3.50 - 10.80 K/[facility]AT[facility] RBC 5.43 4.20 - 5.76 M/[facility] Hemoglobin 16.3 13.1 - 17.5 g/dL [facility] Hematocrit 47.5 38.9 - 50.9 % [facility] MCV 87.5 80.0 - 99.0 fL [facility] MCH 30.0 27.0 - 31.0 pg [facility] MCHC 34.3 32.0 - 36.0 g/dL [facility] RDW-CV 15.0(H) 11.3 - 14.5 % [facility] Platelets 203 150 - 450 K/[facility] Blood specimen (specimen) 07/16/2013 4:07 AM EST [facility] - 07/16/2013 4:37 AM EST Specimen Type: Blood Nadia Garcia MD LAB BLOOD ORDERABLES Fi nal Result Performing Organization Address City/[facility]/ZIP [place] [address], * (ABNORMAL) Troponin (07/16/2013 4:07 AM EST) Troponin I 67.62(AA) 0.00 - 0.60 ng/mL [facility] Comment:NOTIFIED AND READBAC K BY MAIKOL VALENTIN [id number] Blood specimen (specimen) 07/16/2013 4:07 AM EST Narrative [facility] - 07/16/2013 5:52 AM EST Specimen Type: Blood Nadia Garcia MD LAB BLOOD ORDERABLES Fi nal Result Performing Organization Address [facility] [facility] [place] [address], * XR chest 1 vw (07/15/2013 11:33 PM EST) Anatomical Region Laterality Modality Body N/A Radiographic Gretel ging 07/15/2013 11:3 3 PM EST Narrative 07/16/2013 8:42 AM EST PORTABLE CHEST X RAY HISTORY: myocardial infarction FINDINGS: The cardiac silhouette is normal. There are chronic changes. The heart is compensated. There is no mass or effusion. IMPRESSION- Chronic change, no active disease. DE: 07/16/2013 Health Services Coordinator- WAYNE Dueñas [employer] XAVIER Releasing Radiologist- Jose Alberto XAVIER Released Date Time- 07/16/13 1109 Procedure Note Vinnie Silva MD - 03/25/2015 PORTABLE CHEST X RAY HISTORY: myocardial infarction FINDINGS: The cardiac silhouette is normal. There are chronic changes. The heart is compensated. There is no mass or effusion. IMPRESSION- Chronic change, no active disease. DE: 07/16/2013 Health Services Coordinator- WAYNE Dueñas [employer] XAVIER Releasing Radiologist- Jose Alberto XAVIER Released Date Time- 07/16/13 1109 Harpreet Dimas MD IMG DIAGNOSTIC IMAGING ORDER ANA Final Result * Magnesium (07/15/2013 10:06 PM EST) Pathologist [facility] Magnesium 2.0 1.7 - 2.4 mg/dL [facility] Blood specimen (specimen) 07/15/2013 10:06 PM EST Narrative [facility] - 07/15/2013 10:48 PM EST Specimen Type: Blood Harpreet Dimas MD LAB BLOOD ORDERABLES Final R esult [facility] [address] [place] [address], * (ABNORMAL) APTT (07/15/2013 10:06 PM EST) PTT 36(H) 24 - 31 Seconds [facility] Comment: US by IF @ 07/15/2013 22:47 PTT = The equivalent PTT values for the therapeutic range of heparin levels at 0.3 to 0.5 U/ml are 45 to 60 seconds. PTT = The equivalent PTT values for the therapeutic range of heparin levels at 0.3 to 0.5 U/ml are 45 to 60 seconds. Blood specimen (specimen) 07/15/2013 10:06 PM EST Narrative [facility] - 07/15/2013 10:47 PM EST Specimen Type: Blood Harpreet iDmas MD LAB BLOOD ORDERABLES Final R esult Performing Organization Address [facility] [place] [address], * Protime-INR (07/15/2013 10:06 PM EST) Protime 11.3 9.6 - 11.5 Seconds [facility] INR 1.05 [facility] Comment: US by IF @ 07/15/2013 22:47 Therapeutic Ranges for INR: 2.0-3.0 (PT 20-30) 2.5-3.5 (PT 25-34) Blood specimen (specimen) 07/15/2013 10:06 PM EST Narrative [facility] - 07/15/2013 10:47 PM EST Specimen Type: Blood Harpreet Dimas MD LAB BLOOD ORDERABLES Final R esult Performing Organization Address City/[facility] Co de Phone Number [facility] [address] [place] [address], * (ABNORMAL) CBC and Differential (07/15/2013 10:06 PM EST) WBC 16.40(H) 3.50 - 10.80 K/[facility] RBC 5.51 4.20 - 5.76 M/[facility] Hemoglobin 16.7 13.1 - 17.5 g/dL [facility] Hematocrit 48.6 38.9 - 50.9 % [facility] MCV 88.2 80.0 - 99.0 fL [facility] MCH 30.3 27.0 - 31.0 pg [facility] MCHC 34.4 32.0 - 36.0 g/dL [facility] RDW-CV 14.9(H) 11.3 - 14.5 % [facility] Platelets 194 150 - 450 K/[facility] Neutrophils Absolute 12.69(H) 1.50 - 8.30 K/[facility] Lymphocytes Absolute 2.35 0.60 - 4.80 K/[facility] Monocytes Absolute 1.22(H) 0.00 - [facility] Eosin[facility] Absolute 0.06(L) 0.10 - 0.30 [facility] Basophils Absolute 0.03 0.00 - 0.20 [facility] Neutrophil Rel % 77.4(H) 41.0 - 71.0 % [facility] Lymphocyte Rel % 14.3(L) 24.0 - 44.0 % [facility] Monocyte Rel % 7.4 0.0 - 12.0 % [facility] Eosinophil Rel % 0.4 0.0 - 3.0 % [facility] Basophil Rel % 0.2 0.0 - 1.0 % [facility] Immature Granulocyte Rel % 0.3 0.0 - 0.6 % [facility] Blood specimen (specimen) 07/15/2013 10:06 PM EST Narrative [facility] - 07/15/2013 10:28 PM EST Specimen Type: Blood Harpreet Dimas MD LAB BLOOD ORDERABLES Final R esult [facility] [address] [place] [address], * Packed RBC (07/15/2013 7:06 PM EST) Product ID - Unit 1 Red Blood Cells [facility] Unit Number - Unit 1 [id number] [facility] Cross Match - Unit 1 Compatible [facility] Blood Type - Unit 1 AB Pos [facility] Product Code - Unit 1 [id number] [facility] Status Info - Unit 1 Canceled [facility] Product ID - Unit 2 Red Blood Cells [facility] Unit Number - Unit 2 [id number] [facility] Cross Match - Unit 2 Compatible [facility] Blood Type - Unit 2 AB Pos [facility] Product Code - Unit 2 [id number] [facility] Status Info - Unit 2 Canceled [facility] Blood specimen (specimen) 07/15/2013 7:06 PM EST Narrative [facility] - 07/19/2013 12:31 AM EST Specimen Type: Blood Harpreet Dimas MD BLOOD BANK TEST ORDERABLES F inal Result [facility] [address] [place] [address], * P2Y12 Platelet Inhibition (07/15/2013 6:28 PM EST) P2Y12 Reactivity Unit Unable to perform testing, due to insufficient platelet activity. Patients who have been administered Aggrastat or Integrilin within two days, or ReoPro within two weeks, should not be tested. PRU [facility] Comment: DF by [id number] @ 07/15/2013 19:11 Test results are reported in P2Y12 Reaction Units (PRU). This measures the extent of platelet aggregation in the presence of a P2Y12 inhibitor. P2Y12 results of less than 208 PRU are associated with expected anti-platelet effect. P2Y12 results of greater than 208 PRU are indicative of a decreased response to P2Y12 inhibitors. Pre-surgical P2Y12 values should be greater than 250 PRU to ensure adequate coagulation and prevent bleeding. The results of a study performed by the test drafter mechanical are summarized below: % Inhibition Threshold PRU Threshold ARSENIO AUC 10% 259 0.91 20% 237 0.93 30% 214 0.95 40% 187 0.97 50% 159 0.98 60% 131 0.99 Blood specimen (specimen) 07/15/2013 6:28 PM EST Narrative [facility] - 07/15/2013 7:11 PM EST Specimen Type: Blood Nadia Garcia MD LAB BLOOD ORDERABLES Fi nal Result Performing Organization Address [facility] Co de Phone Number [facility] [address] [place] [address], * (ABNORMAL) Basic metabolic panel (07/15/2013 6:28 PM EST) Glucose 91 70 - 100 mg/dL [facility] BUN 13 6 - 20 mg/dL [facility] Creatinine 0.9 0.6 - 1.3 mg/dL [facility] Sodium 134(L) 136 - 145 mmol/L [facility] Potassium 4.2 3.4 - 5.4 mmol/L [facility] Chloride 106 98 - 107 mmol/L [facility] CO2 21 20 - 31 mmol/L [facility] Calcium 8.4(L) 8.7 - 10.4 mg/dL [facility] eGFR 90 ml/min/1.7 32 [facility] Comment: DF by IF @ 07/15/2013 19:37 National Kidney Foundation Guidelines Stage Description GFR 1 Normal or High 90+ 2 Mild decrease 60-89 3 Moderate decrease 30-59 4 Severe decrease 15-29 5 Kidney failure <15 Anion Gap 6 3 - 11 mmol/L [facility] Blood specimen (specimen) 07/15/2013 6:28 PM EST Narrative [facility] - 07/15/2013 7:37 PM EST Specimen Type: Blood Nadia Garcia MD LAB BLOOD ORDERABLES Fi nal Result Performing Organization Address [facility] Co de Phone Number [facility] [address] [place] [address], * Hemoglobin A1c (07/15/2013 6:28 PM EST) Hemoglobin A1C 5.6 4.00 - 6.00 % [facility] Comment: DF by IF @ 07/15/2013 19:28 The [place] [employer] recommends maintenance of Hemoglobin A1C at 7.0% or lower. Goals for Hemoglobin A1C reduction may need to be modified if hypoglycemia is a problem. Mean Bld Glu Estim. 108 mg/dL [facility] Blood specimen (specimen) 07/15/2013 6:28 PM EST Narrative [facility] - 07/15/2013 7:28 PM EST Specimen Type: Blood Nadia Garcia MD LAB BLOOD ORDERABLES Fi nal Result [place] [address] [place] [address], * (ABNORMAL) CBC (No diff) (07/15/2013 6:28 PM EST) WBC 12.39(H) 3.50 - 10.80 K/[facility] RBC 5.54 4.20 - 5.76 M/[facility] Hemoglobin 16.7 13.1 - 17.5 g/dL [facility] Hematocrit 48.4 38.9 - 50.9 % [facility] MCV 87.4 80.0 - 99.0 fL [facility] MCH 30.1 27.0 - 31.0 pg [facility] MCHC 34.5 32.0 - 36.0 g/dL [facility] RDW-CV 14.8(H) 11.3 - 14.5 % [facility] Platelets 203 150 - 450 K/[facility] Blood specimen (specimen) 07/15/2013 6:28 PM EST [facility] - 07/15/2013 6:40 PM EST Specimen Type: Blood Nadia Garcia MD LAB BLOOD ORDERABLES Fi nal Result Performing Organization Address City/State/[facility] Co de Phone Number [facility] [address] [place] [address], * (ABNORMAL) Comprehensive metabolic panel (07/15/2013 6:28 PM EST) Glucose 90 70 - 100 mg/dL [facility] BUN 13 6 - 20 mg/dL [facility] Creatinine 0.9 0.6 - 1.3 mg/dL [facility] Sodium 135(L) 136 - 145 mmol/L [facility] Potassium 4.2 3.4 - 5.4 mmol/L [facility] Chloride 106 98 - 107 mmol/L [facility] CO2 22 20 - 31 mmol/L [facility] Calcium 8.5(L) 8.7 - 10.4 mg/dL [facility] Alkaline Phosphatase 72 25 - 100 Units/L [facility] AST (SGOT) 33 8 - 33 Units/L [facility] ALT (SGPT) 13 7 - 40 Units/L [facility] Total Bilirubin 0.8 0.3 - 1.2 mg/dL [facility] Total Protein 6.5 6.4 - 8.3 g/dL [facility] Albumin 3.7 3.4 - 4.8 g/dL [facility] eGFR 89 ml/min/1.7 32 [facility] Comment: DF by IF @ 07/15/2013 19:43 National Kidney Foundation Guidelines Stage Description GFR 1 Normal or High 90+ 2 Mild decrease 60-89 3 Moderate decrease 30-59 4 Severe decrease 15-29 5 Kidney failure <15 Anion Gap 7 3 - 11 mmol/L [facility] Blood specimen (specimen) 07/15/2013 6:28 PM EST Narrative [facility] - 07/15/2013 7:45 PM EST Specimen Type: Blood Nadia Garcia MD LAB BLOOD ORDERABLES Fi nal Result [facility] [address] [place] [address], * (ABNORMAL) Lipid panel (07/15/2013 6:28 PM EST) Total Cholesterol 178 0 - 200 mg/dL [facility] Comment: DF by IF @ 07/15/2013 19:43 Cholesterol Reference Ranges: Desirable: less than 200 mg/dL Borderline: 200-239 mg/dL High: greater than 239 mg/dL Triglycerides 106 0 - 150 mg/dL [facility] Comment: DF by IF @ 07/15/2013 19:43 Triglyceride Reference Ranges: Normal less than 150 mg/dL Borderline 150-199 mg/dL High 200-499 mg/dL Very High greater than 499 mg/dL HDL Cholesterol 33(L) 40 - 60 mg/dL [facility] Comment: DF by IF @ 07/15/2013 19:43 HDL Cholesterol Reference Ranges: Low less than 40 mg/dL High greater than 59 mg/dL LDL Cholesterol 139(H) 0 - 100 mg/dL [facility] Comment: US by [id number] @ 07/15/2013 19:45 LDL Cholesterol Reference Ranges: Optimal less than 100 mg/dL Near Optimal 100-129 mg/dL Borderline 130-159 mg/dL High 160-189 mg/dL Very High greater than 189 mg/dL Blood specimen (specimen) 07/15/2013 6:28 PM EST Narrative [facility] - 07/15/2013 7:45 PM EST Specimen Type: Blood Nadia Garcia MD LAB BLOOD ORDERABLES Fi nal Result [facility] [address] [place] [address], * (ABNORMAL) Troponin (07/15/2013 6:28 PM EST) Troponin I 2.54(AA) 0.00 - 0.60 ng/mL [facility] Comment:Called to, read back and verified by: W VALENTIN RN AT 1944 07/15/2013, LS Blood specimen (specimen) 07/15/2013 6:28 PM EST Narrative [facility] - 07/15/2013 7:45 PM EST Specimen Type: Blood Nadia Garcia MD LAB BLOOD ORDERABLES Fi nal Result Performing Organization Address [facility] [place] [address], * Type and screen (07/15/2013 6:25 PM EST) ABORh AB Rh Positive [facility] Antibody Screen Negative [facility] Blood specimen (specimen) 07/15/2013 6:25 PM EST Narrative [facility] - 07/15/2013 7:41 PM EST Specimen Type: Blood Harpreet Dimas MD BLOOD BANK TEST ORDERABLES F inal Result Performing Organization Address [facility] de Phone Number [facility] [address] [place] [address], * Cardiac catheterization (07/15/2013 3:57 PM EST) Anatomical Region Laterality Modality Other 07/15/2013 3:57 PM EST Narrative 07/15/2013 3:57 PM EST [place] [address] CARDIAC CATHETERIZATION PATIENT NAME: CRUZ SANCHEZ [facility] NO: [id number] [facility] NO: [id number] DATE OF : 1950 DATE OF ADMISSION: 07/15/2013 DATE OF PROCEDURE: 07/15/2013 REFERRING PHYSICIAN: PRIMARY CARE PHYSICIAN: Romana Nolasco M.D. [place], [place] COMMUNICATIONS STATION MANAGER: Nadia Garcia M.D., F.A.C.C.* INDICATIONS FOR THIS PROCEDURE: Acute lateral ST-elevation myocardial infarction in a patient with dyslipidemia and ongoing tobacco abuse. PROCEDURES PERFORMED: 1. Coronary arteriography. 2. Thrombectomy and percutaneous transluminal coronary angioplasty of the left circumflex coronary artery. DESCRIPTION OF THE PROCEDURE: Verbal consent was obtained from the patient. The patient was brought to the cardiac catheterization laboratory where he was prepped and draped in the usual sterile fashion over the right femoral artery. Local anesthesia was achieved with one percent Xylocaine. A 6 Palestinian hemostasis sheath was placed in the patient's right femoral artery using the modified Seldinger technique. Selective coronary arteriography was then performed using the Mahesh technique with 6 Palestinian, 4-curved, Mahesh, right and left catheters. Nonionic contrast was used and was injected manually. At the time of the procedure, the patient was noted to have a thrombotic lesion in the left circumflex coronary artery. Angiomax was administered to the patient per protocol. A 6 Palestinian, Mach I, CLS3.5 guide was placed to the level of the left main coronary artery. A 0.014, Crisis Worker 150, 190 cm wire was then advanced across the lesion without difficulty within the second obtuse marginal branch. An Urbanna thrombectomy catheter was then placed within the artery and thrombus was extracted. A 2.0 mm diameter by 15 mm length, TREK balloon was then advanced into the lesion and inflated to eight atmospheres for 60 seconds and then eight atmospheres for 45 seconds. At that point, the Urbanna catheter was re-advanced due to residual thrombus and finally additional thrombus extraction was removed. At that point, the wire and guider were removed, and the procedure was complete. 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 COMPLICATIONS: There were no complications. RESULTS: CONTRAST: 150 mL Optiray. HEMODYNAMIC DATA (Pressures in mmHg): LEFT HEART PRESSURES: Not obtained at the time of this procedure. ANGIOGRAPHIC FINDINGS: LEFT VENTRICULOGRAPHY: Left ventriculography was not performed at the time of this procedure. SELECTIVE CORONARY ANGIOGRAPHY: [place]: RIGHT CORONARY ARTERY: The right coronary artery was occluded in the midsegment. [id number] collateral flow was noted on the left coronary injections. dominant for the posterior circulation. LEFT MAIN CORONARY ARTERY: The left main coronary artery gave rise to the left anterior descending coronary artery and left circumflex coronary artery. The left main coronary artery contained mild disease. LEFT CIRCUMFLEX CORONARY ARTERY: The left circumflex coronary artery gave rise to a large, high, first obtuse marginal branch, which contained an 80 percent-90 percent, proximal stenosis. The second obtuse marginal branch contained a thrombotic-appearing, 90 percent-95 percent stenosis. LEFT ANTERIOR DESCENDING CORONARY ARTERY: The left anterior descending coronary artery gave rise to one, small diagonal branch and a multiple septal perforators. The diagonal branch contained a proximal stenosis estimated at 70 percent. CATHETER-BASED INTERVENTION: THROMBECTOMY AND PTCA OF THE SECOND OBTUSE MARGINAL BRANCH: Thrombectomy and PTCA of the second obtuse marginal branch was accomplished. PRE-PROCEDURE: 90 percent-95 percent stenosis. POST-PROCEDURE: Less than 60 percent stenosis with some degree of residual thrombus. COMPLICATIONS: None. FINAL IMPRESSIONS: Marginally successful percutaneous transluminal coronary angioplasty and thrombectomy within the second obtuse marginal branch. RECOMMENDATIONS: 1. Coronary artery bypass grafting has been discussed with the patient, and he is agreeable to proceed. 2. Harpreet Dimas M.D.* has been consulted. Nadia Garcia M.D., Angel* [facility]rx[facility]aw Voice Rec. ID #[id number] Original Voice Rec. ID #[id number] Doc ID #[id number] Revision Count: 0 cc: Nadia Garcia M.D., Angel* Noam Moreno M.D.* [place] [address] CARDIAC CATHETERIZATION PATIENT NAME: CRUZ SANCHEZ [address] [place] [address] NO: [id number] [facility] NO: [id number] DATE OF : 1950 <END HEADER> DO NOT TEXT EDIT THIS LINE :[id number]: Authenticated by NADIA GARCIA M.D. On 08/09/2013 06:54:42 AM Procedure Note Interface, See Report - 03/23/2015 [place] [address] CARDIAC CATHETERIZATION PATIENT NAME: CRUZ SANCHEZ[address] [facility] NO: [id number] [facility] NO: [id number] DATE OF : 1950 DATE OF ADMISSION: 07/15/2013 DATE OF PROCEDURE: 07/15/2013 REFERRING PHYSICIAN: PRIMARY CARE PHYSICIAN: Romana Nolasco M.D. [place], [place] COMMUNICATIONS STATION MANAGER: Nadia Garcia M.D., F.A.C.C.* INDICATIONS FOR THIS PROCEDURE: Acute lateral ST-elevation myocardial infarction in a patient withdyslipidemia and ongoing tobacco abuse. PROCEDURES PERFORMED: 1. Coronary arteriography. 2. Thrombectomy and percutaneous transluminal coronary angioplasty of theleft circumflex coronary artery. DESCRIPTION OF THE PROCEDURE: Verbal consent was obtained from the patient. The patient was brought tothe cardiac catheterization laboratory where he was prepped and draped in theusual sterile fashion over the right femoral artery. Local anesthesia wasachieved with one percent Xylocaine. A 6 Palestinian hemostasis sheath was placed in the patient's right femoralartery using the modified Seldinger technique. Selective coronary arteriography was then performed using the Judkinstechnique with 6 Palestinian, 4-curved, Mahesh, right and left catheters. Nonioniccontrast was used and was injected manually. At the time of the procedure, the patient was noted to have a thromboticlesion in the left circumflex coronary artery. Angiomax was administered to the patient per protocol. A 6 Palestinian, Mach I, CLS3.5 guide was placed to the level of the leftmain coronary artery. A 0.014, Crisis Worker 150, 190 cm wire was then advanced acrossthe lesion without difficulty within the second obtuse marginal branch. AnExport thrombectomy catheter was then placed within the artery and thrombus was extracted. A 2.0 mm diameter by 15 mm length, TREK balloon was thenadvanced into the lesion and inflated to eight atmospheres for 60 seconds and theneight atmospheres for 45 seconds. At that point, the Urbanna catheter wasre-advanced due to residual thrombus and finally additional thrombus extraction was removed. At that point, the wire and guider were removed, and the procedure was complete. At the time of cardiac catheterization, the patient was noted tohave multivessel coronary artery disease, and it was felt best that he go onto surgery within the next 24 hours. COMPLICATIONS: There were no complications. RESULTS: CONTRAST: 150 mL Optiray. HEMODYNAMIC DATA (Pressures in mmHg): LEFT HEART PRESSURES: Not obtained at the time of this procedure. ANGIOGRAPHIC FINDINGS: LEFT VENTRICULOGRAPHY: Left ventriculography was not performed at the time of this procedure. SELECTIVE CORONARY ANGIOGRAPHY: [place]: RIGHT CORONARY ARTERY: The right coronary artery was occluded in the midsegment. [id number]-vl-[id number] collateral flow was noted on the left coronary injections. dominant forthe posterior circulation. LEFT MAIN CORONARY ARTERY: The left main coronary artery gave rise to the left anterior descending coronary artery and left circumflex coronary artery. The left maincoronary artery contained mild disease. LEFT CIRCUMFLEX CORONARY ARTERY: The left circumflex coronary artery gave rise to a large, high, firstobtuse marginal branch, which contained an 80 percent-90 percent, proximalstenosis. The second obtuse marginal branch contained a thrombotic-appearing, 90 percent-95 percent stenosis. LEFT ANTERIOR DESCENDING CORONARY ARTERY: The left anterior descending coronary artery gave rise to one, smalldiagonal branch and a multiple septal perforators. The diagonal branch containeda proximal stenosis estimated at 70 percent. CATHETER-BASED INTERVENTION: THROMBECTOMY AND PTCA OF THE SECOND OBTUSE MARGINAL BRANCH: Thrombectomy and PTCA of the second obtuse marginal branch wasaccomplished. PRE-PROCEDURE: 90 percent-95 percent stenosis. POST-PROCEDURE: Less than 60 percent stenosis with somedegree of residual thrombus. COMPLICATIONS: None. FINAL IMPRESSIONS: Marginally successful percutaneous transluminal coronary angioplasty and thrombectomy within the second obtuse marginal branch. RECOMMENDATIONS: 1. Coronary artery bypass grafting has been discussed with the patient,and he is agreeable to proceed. 2. Harpreet Dimas M.D.* has been consulted. Nadia Garcia M.D., Angel* [facility] Voice Rec. ID #[id number] Original Voice Rec. ID #[id number] Doc ID #[id number] Revision Count: 0 cc: Nadia Garcia M.D., Angel* Noam Moreno M.D.* [place] [address] CARDIAC CATHETERIZATION PATIENT NAME: CRUZ SANCHEZ [address] [facility] NO: [id number] [facility] NO: [id number] DATE OF : 1950 <END HEADER> DO NOT TEXT EDIT THIS LINE :[id number]: Authenticated by NADIA GARCIA M.D. On 08/09/2013 06:54:42 AM us See Report Interface CV CARDIAC CATH ORDERABLES Final Result * CONVERTED (HISTORICAL) CARDIOVASCULAR STUDIES (07/15/2013 3:57 PM EST) Anatomical Region Laterality Modality Other 07/15/2013 3:57 PM EST Narrative 07/15/2013 3:57 PM EST Patient: CRUZ SANCHEZ [facility] Rec#: [id number] : 1950 Date: 07/15/2013 Age: 63y Height: 172.72 cm / 68.0 in Weight: 71.67 kg / 158.0 lbs Sex: M Room#: 3334 Loc: patient room [address] Supervisor: Bridgett Sykes RDCS Referring: Nadia Garcia MD Reading: Nadia Garcia MD Primary: ROMANA NOLASCO Procedure Codes: 38423 Study Quality: Carotid Duplex (Carotid artery bruit 785.9 ... Coronary Artery Disease 414.00 ... Pre-op exam unspecified V72.84 ) History History of hypertension. History of hyperlipidemia. Currently smokes, unknown packs/day. Family history of CAD. History of CAD. Conclusions *There is no evidence of hemodynamically significant stenosis in either carotid system. Antegrade flow is present in both vertebral arteries. Findings There is intimal thickening in the left common carotid artery. Unable to obtain a Doppler signal in the right vertebral artery, which may be suggestive of occlusion. The left bifurcation contained a mild amount of plaque. The left vertebral artery was patent with antegrade flow. No significant plaque noted Rt carotid arteries. No flow detected in Rt vertebral.Intimal thickening Lt CCA. Small plaque Lt bulb. Measurements Right Carotid PSV Name Value Units PCCA 66.8 cm/sec DCCA 76.6 cm/sec PICA 66.8 cm/sec GARCÍA 39.3 cm/sec DICA 45.2 cm/sec PECA 71.7 cm/sec PSCA 162 cm/sec Right Carotid EDV Name Value Units PCCA 14.7 cm/sec DCCA 18.7 cm/sec PICA 14.7 cm/sec GARCÍA 13.8 cm/sec DICA 21.6 cm/sec Left Carotid PSV Name Value Units PCCA 76.6 cm/sec DCCA 80.5 cm/sec PICA 52.1 cm/sec GARCÍA 55 cm/sec DICA 66.8 cm/sec PECA 129 cm/sec Vertebral 43.2 cm/sec PSCA 145 cm/sec Left Carotid EDV Name Value Units PCCA 17.7 cm/sec DCCA 26.5 cm/sec PICA 18.7 cm/sec GARCÍA 19.6 cm/sec DICA 24.6 cm/sec Blood Pressures and Ratios Name Value Units R Systoli 115 mmHg R Diastol 81 mmHg R ICA/CCA 0.87 ratio L ICA/CCA 0.83 ratio Procedure Note Interface, See Report - 12/11/2015 Patient: CRUZ SANCHEZ [facility] Rec#: [id number] : 1950 Date: 07/15/2013 Age: 63y Height: 172.72 cm / 68.0 in Weight: 71.67 kg / 158.0 lbs Sex: M Room#: 3334 Loc: patient room Division [address] Supervisor: Bridgett Sykes KAVEH Referring: Nadia Garcia MD Reading: Nadia Garcia MD Primary: ROMANA NOLASCO Procedure Codes: 47140 Study Quality: Carotid Duplex (Carotid artery bruit 785.9 ... Coronary Artery Disease 414.00 ... Pre-op exam unspecified V72.84 ) History History of hypertension. History of hyperlipidemia. Currently smokes, unknown packs/day. Family history of CAD. History of CAD. Conclusions *There is no evidence of hemodynamically significant stenosis in either carotid system. Antegrade flow is present in both vertebral arteries. Findings There is intimal thickening in the left common carotid artery. Unable to obtain a Doppler signal in the right vertebral artery, which may be suggestive of occlusion. The left bifurcation contained a mild amount of plaque. The left vertebral artery was patent with antegrade flow. No significant plaque noted Rt carotid arteries. No flow detected in Rt vertebral.Intimal thickening Lt CCA. Small plaque Lt bulb. Measurements Right Carotid PSV Name Value Units PCCA 66.8 cm/sec DCCA 76.6 cm/sec PICA 66.8 cm/sec GARCÍA 39.3 cm/sec DICA 45.2 cm/sec PECA 71.7 cm/sec PSCA 162 cm/sec Right Carotid EDV Name Value Units PCCA 14.7 cm/sec DCCA 18.7 cm/sec PICA 14.7 cm/sec GARCÍA 13.8 cm/sec DICA 21.6 cm/sec Left Carotid PSV Name Value Units PCCA 76.6 cm/sec DCCA 80.5 cm/sec PICA 52.1 cm/sec GARCÍA 55 cm/sec DICA 66.8 cm/sec PECA 129 cm/sec Vertebral 43.2 cm/sec PSCA 145 cm/sec Left Carotid EDV Name Value Units PCCA 17.7 cm/sec DCCA 26.5 cm/sec PICA 18.7 cm/sec GARCÍA 19.6 cm/sec DICA 24.6 cm/sec Blood Pressures and Ratios Name Value Units R Systoli 115 mmHg R Diastol 81 mmHg R ICA/CCA 0.87 ratio L ICA/CCA 0.83 ratio us See Report Interface CV CARDIAC SERVICES ORDERAB LES Final Result * CONVERTED (HISTORICAL) ECHO (07/15/2013 3:57 PM EST) Anatomical Region Laterality Modality Ultrasound 07/15/2013 3:57 PM EST Narrative 07/15/2013 3:57 PM EST Patient: CRUZ SANCHEZ [facility] Rec#: [id number] : 1950 Date: 07/15/2013 Age: 63y Height: 172.72 cm / 68.0 in Weight: 71.67 kg / 158.0 lbs Sex: M BSA: 1.85 Room#: [facility] Supervisor: Bridgett Sykes [facility] Referring: Nadia Garcia MD Reading: Nadia Garcia MD Primary: ROMANA NOLASCO Transthoracic Echocardiogram Indication: stemi BP: 115/81 Conclusions 1. The estimated ejection fraction is 50-55%. Posterolateral hypokinesis. 2. There is moderate mitral regurgitation. 3. There is a trace tricuspid regurgitation. Findings Technical Comments: The study quality is good. Left Ventricle: The left ventricular chamber size is normal. There is mildly decreased left ventricular systolic function. The estimated ejection fraction is 50-55%. Posterolateral hypokinesis. Left Atrium: The left atrial chamber size is normal. Right Ventricle: The right ventricular cavity size is normal. The right ventricular global systolic function is normal. Right Atrium: The right atrial cavity size is normal. No atrial septal defect is visualized. Aortic Valve: The aortic valve is trileaflet. There is no evidence of aortic regurgitation. There is no evidence of aortic stenosis. Mitral Valve: The mitral valve leaflets appear normal. There is no evidence of mitral valve prolapse. There is moderate mitral regurgitation. There is no evidence of mitral stenosis. Tricuspid Valve: The tricuspid valve leaflets are normal. There is a trace tricuspid regurgitation. Pulmonic Valve: The pulmonic valve appears normal. There is a trace pulmonic regurgitation. Pericardium: There is no evidence of pericardial effusion. Aorta: There is no dilatation of the aortic root. Pulmonary Artery: The main pulmonary artery appears normal. Venous: The venous system appears normal. Measurements Chambers Name Value Ao root diameter (MM) 3.1 cm RVIDd (AP) 2D 1.92 cm IVSd (2D) 0.98 cm LVIDd (2D) 5.42 cm LVIDs (2D) 3.34 cm LVPWd (2D) 0.98 cm LA dimension (AP) 2D 3.6 cm Volumes Name Value LV EDV SP 4CH (MOD) 119 ml LV ESV SP 4CH (MOD) 71 ml EF SP 4CH (MOD) 40 % Diastolic/Systolic Function Name Value MV E-wave Vmax 0.72 m/sec MV A-wave Vmax 0.81 m/sec MV E:A ratio 0.9 ratio LV lateral e' Vmax 0.08 m/sec LV E:e' lateral ratio 8.5 ratio Procedure Note Interface, See Report - 12/11/2015 Patient: CRUZ SANCHEZ [facility] Rec#: [id number] : 1950 Date: 07/15/2013 Age: 63y Height: 172.72 cm / 68.0 in Weight: 71.67 kg / 158.0 lbs Sex: M BSA: 1.85 Room#: [address] Supervisor: Bridgett Sykes [facility] Referring: Nadia Garcia MD Reading: Nadia Garcia MD Primary: ROMANA NOLASCO Transthoracic Echocardiogram Indication: stemi BP: 115/81 Conclusions 1. The estimated ejection fraction is 50-55%. Posterolateral hypokinesis. 2. There is moderate mitral regurgitation. 3. There is a trace tricuspid regurgitation. Findings Technical Comments: The study quality is good. Left Ventricle: The left ventricular chamber size is normal. There is mildly decreased left ventricular systolic function. The estimated ejection fraction is 50-55%. Posterolateral hypokinesis. Left Atrium: The left atrial chamber size is normal. Right Ventricle: The right ventricular cavity size is normal. The right ventricular global systolic function is normal. Right Atrium: The right atrial cavity size is normal. No atrial septal defect is visualized. Aortic Valve: The aortic valve is trileaflet. There is no evidence of aortic regurgitation. There is no evidence of aortic stenosis. Mitral Valve: The mitral valve leaflets appear normal. There is no evidence of mitral valve prolapse. There is moderate mitral regurgitation. There is no evidence of mitral stenosis. Tricuspid Valve: The tricuspid valve leaflets are normal. There is a trace tricuspid regurgitation. Pulmonic Valve: The pulmonic valve appears normal. There is a trace pulmonic regurgitation. Pericardium: There is no evidence of pericardial effusion. Aorta: There is no dilatation of the aortic root. Pulmonary Artery: The main pulmonary artery appears normal. Venous: The venous system appears normal. Measurements Chambers Name Value Ao root diameter (MM) 3.1 cm RVIDd (AP) 2D 1.92 cm IVSd (2D) 0.98 cm LVIDd (2D) 5.42 cm LVIDs (2D) 3.34 cm LVPWd (2D) 0.98 cm LA dimension (AP) 2D 3.6 cm Volumes Name Value LV EDV SP 4CH (MOD) 119 ml LV ESV SP 4CH (MOD) 71 ml EF SP 4CH (MOD) 40 % Diastolic/Systolic Function Name Value MV E-wave Vmax 0.72 m/sec MV A-wave Vmax 0.81 m/sec MV E:A ratio 0.9 ratio LV lateral e' Vmax 0.08 m/sec LV E:e' lateral ratio 8.5 ratio See Report Interface CV ECHO ORDERABLES Final Re sult * SCANNED - CARDIOLOGY (07/15/2013) Anatomical Region Laterality Modality Other [facility] CV CARDIAC SERVICES ORDERABLE S Final Result * SCANNED EKG (07/15/2013) [facility] ECG ORDERABLES Final Result documented in this encounter Visit Diagnoses Not on filedocumented [...] documented as of this encounter Care Teams Software Deployment Engineer Relationship Specialty Start Date End Date Hedy Baptiste DO [address] [place], [place] [id number] PCP - General Family Medicine 04/15/21 documented as of this encounter
--- OUTSIDE RECORDS SUMMARY | 2025-04-08 09:45 | XMS_ITS | Encounter Summary ---
[facility] Address [address] [place] [address] Care Team Providers Care Custom Shop Worker Name Role Phone Hedy Baptiste Primary Care Provider [phone] Encounter Details Date Type Department Care Team (Late Contact Info) Description 09/17/2021 MDT Assessment [facility] HEMATOLOGY & ONCOLOGY [address] [facility] [address] [place] [address] Courtney Hollis MD [address] [facility] [address] [place] [address] Social History Tobacco Use Types Packs/Day Years Used Date Smoking Tobacco: Former Cigarettes 1 40 1 974 - 2014 Smokeless Tobacco: Never Comments:with cessation, Alcohol Use Standard Drinks/Week Comments Yes 0 (1 standard drink = 0.6 oz pur e alcohol) AUDIT-C Answer Date Recorded Q1: How often do you have a drink containing alcohol? Never 09/15/2021 Q2: How many drinks containi ng alcohol do you have on a typical day when you are drinking? Patient does not drink Q3: How often do you have si x or more drinks on one occasion? Never 09/15/2021 Sex and Gender Information Value Date Recorded Sex Assigned at Not on file Legal Sex Male 1:37 PM EDT Gender Identity Not on file Sexual Orientation Not on file documented as of this encounter Plan of Treatment Upcoming Encounters Date Type Department Care Team (Late st Contact Info) Description 04/08/2025 1:00 PM EDT Appointment [facility] [address] [place] [address] 04/15/2025 1:30 PM EDT Office Visit [facility] HEMATOLOGY & ONCOLOGY [address] [place] [address] Talisha Ozuna, RETAIL MERCHANDISING SPECIALIST [address] [place] [address] 07/09/2025 11:30 AM EST Office Visit [facility] CARDIOLOGY [address] [place] [address] Nadia Garcia MD [address] [place], [place] [id number] 08/12/2025 10:30 AM EST Office Visit [facility] CARDIOLOGY [address] [place] [address] Vandana Ramirez APRN [address] [place] [address] documented as of this encounter Visit Diagnoses Not on filedocumented in this encounter Additional Health Concerns Infection Onset Date Last Indicated Resolved Time COVID Screen (preop/placement) 10/14/2021 10/19/2021 10/19/2021 8:00 PM EDT documented as of this encounter Care Teams Custom Shop Worker Relationship Specialty Start Date End Date Hedy Baptiste DO [address] [place] [address] PCP - General Family Medicine 04/15/21 documented as of this encounter
--- OUTSIDE RECORDS SUMMARY | 2025-04-08 09:46 | XMS_ITS | Encounter Summary ---
[facility] Address [address] [place] [address] Care Team Providers Care Assistant Boiler Operator Name Role Phone Hedy Baptiste Primary Care Provider [phone] Reason for Visit * Reason Onset Date Comments Med Refill 02/11/2025 Encounter Details Date Type Department Care Team (Late st Contact Info) Description 02/11/2025 Refill [facility] CARDIOLOGY [address] [place] [address] Cierra Williamson MD [address] [place] [address] Med Refill Social History Tobacco Use Types Packs/Day Years Used Date Smoking Tobacco: Former Cigarettes 1 40 1 974 - 2013 Passive Smoke Exposure: Past Smokeless Tobacco: Never Comments:with cessation, Alcohol Use Standard Drinks/Week Comments Not Currently [...] more drinks on one occasion? Never 09/15/2021 PHQ-2 Answer Date Recorded Retired PHQ-9: Brief Depression Severity Measure Score 0 09/19/2022 Abuse Screen Answer Date Recorded Feels Unsafe at Home or Work/School no 02/05/2024 Feels Threatened by Someone no 11/2023 Does Anyone Try to Keep You From Having Contact with Others or Doing Things Outside Your Home? no 02/05/2024 Physical Signs of Abuse Present no 02/05/2024 Housing Stability Answer Date Recorded Current Living Arrangements home 07/03 Potentially Unsafe Housing Conditions Not on aidan e 07/20/2023 Disabilities Answer Date Recorded Difficulty Concentrating, Remembering or Making Decisions no 07/20/2023 Difficulty Managing Errands Independently no 07/20/2023 PHQ-2 Answer Date Recorded Patient Health Questionnaire-2 Score 0 10/14/2024 Sex and Gender Information Value Date Recorded Sex Assigned at Not on file Legal Sex Male 1:37 PM EDT Gender Identity Not on file Sexual Orientation Not on file documented as of this encounter Plan of Treatment Upcoming Encounters Date Type Department Care Team (Late st Contact Info) Description 04/08/2025 1:00 PM EDT Appointment [facility] AT [address] [phone] 04/15/2025 1:30 PM EDT Office Visit [facility] HEMATOLOGY & ONCOLOGY [address] [facility] [address] [place] [address] Talisha Ozuna, COIL REWIND MACHINE OPERATOR [address] [facility] [address] [place] [address] 07/09/2025 11:30 AM EST Office Visit [facility] CARDIOLOGY [address] [facility] [address] [place] [address] Nadia Garcia MD [address] [facility] [address] [place] [address] 08/12/2025 10:30 AM EST Office Visit [facility] CARDIOLOGY [address] [place] [address] Vandana Ramirez APRN [address] [place] [address] documented as of this encounter Visit Diagnoses Not on filedocumented in this encounter Care Teams Assistant Boiler Operator Relationship Specialty Start Date End Date Hedy Baptiste DO [address] [place] [address] PCP - General Family Medicine 04/15/21 documented as of this encounter
--- OUTSIDE RECORDS SUMMARY | 2025-04-08 09:46 | XMS_ITS | Encounter Summary ---
[facility] [address] [place] [address] Care Team Providers Care Concrete Batcher Name Role Phone YeyoDanielle murrayabbey De La Torregh Primary Care Provider [phone] [phone] Encounter Details Date Type Department Care Team (Late st Contact Info) Description 10/23/2024 Results Follow-Up [facility] CARDIOLOGY [address] [facility] [address] [place] [address] Ankita Appiah PA-C [address] [facility] [address] [place] [id number] Social History Tobacco Use Types Packs/Day Years Used Date Smoking Tobacco: Former Cigarettes 1 40 1 974 - 2014 Passive Smoke Exposure: Past Smokeless Tobacco: Never [...] on file documented as of this encounter Progress Notes * Ankita Appiah PA-C - 10/23/2024 9:02 AM EDT Normal echocardiogram with no change from previous echocardiogram and stable mild mitral regurgitation. No changes to be made at this time documented in this encounter Plan of Treatment Upcoming Encounters Date Type Department Care Team (Late st Contact Info) Description 04/08/2025 1:00 PM EDT Appointment [facility] AT [address] [address] 04/15/2025 1:30 PM EDT Office Visit [facility] HEMATOLOGY & ONCOLOGY [address] [facility] [address] [place] [address] Talisha Ozuna, SNEHA [address] [facility] [address] [place] [address] 07/09/2025 11:30 AM EST Office Visit [facility] CARDIOLOGY [address] [facility] [address] [place] [address] Nadia Garcia MD [address] [facility] [address] [place] [address] 08/12/2025 10:30 AM EST Office Visit [facility] CARDIOLOGY [address] [place] [address] Vandana Ramirez APRN [address] [place] [address] documented as of this encounter Visit Diagnoses Not on filedocumented in this encounter Care Teams Concrete Batcher Relationship Specialty Start Date End Date Hedy Baptiste DO [address] [place] [address] PCP - General Family Medicine 04/15/21 documented as of this encounter
--- OUTSIDE RECORDS SUMMARY | 2025-04-08 09:46 | XMS_ITS | Encounter Summary ---
[facility] Address [address] [place] [address] Care Team Providers Care Assistant Analyst Name Role Phone YeyoHedy murray Xiomara Primary Care Provider [phone] Reason for Visit * Reason Comments Med Refill Encounter Details Date Type Department Care Team (Late st Contact Info) Description 02/16/[address] [facility] CARDIOLOGY [address] [place] [phone] Nadia Garcia MD [address] [facility] [address] [place] [address] Med Refill Social History Tobacco Use Types Packs/Day Years Used Date Smoking Tobacco: Former Cigarettes 1 40 1 - 2013 Passive Smoke Exposure: Past Smokeless [...] Info) Description 04/08/2025 1:00 PM EDT Appointment [facility] AT [address] [phone] 04/15/2025 1:30 PM EDT Office Visit [facility] HEMATOLOGY & ONCOLOGY [address] [facility] [address] [place] [address] Talisha Ozuna, DOLLY OPERATOR [address] [facility] [address] [place] [address] 07/09/2025 11:30 AM EST Office Visit [facility] CARDIOLOGY [address] [facility] [address] [place] [address] Nadia Garcia MD [address] [facility] [address] [place] [address] 08/12/2025 10:30 AM EST Office Visit [facility] CARDIOLOGY [address] [place] [address] Vandana Ramirez APRN [address] [place] [address] documented as of this encounter Visit Diagnoses Not on filedocumented in this encounter Care Teams Assistant Analyst Relationship Specialty Start Date End Date Hedy Baptiste DO [facility] [place] [address] PCP - General Family Medicine 04/15/21 documented as of this encounter
--- OUTSIDE RECORDS SUMMARY | 2025-04-08 09:46 | XMS_ITS | Clinical Summary ---
[facility] [address] [place] [address] Care Team Providers Care Ferryboat Ticket Taker Name Role Phone Hedy Baptiste DO Primary Care Provider [phone] Allergies No known active allergies Medications famotidine (PEPCID) 20 MG tablet Take 1 tablet by mouth Daily. Active Zinc 50 MG tablet Take 1 tablet by mouth Daily. Active NON FORMULARY 1 tablet Daily. Leg and back pain relief Active gabapentin (NEURONTIN) 100 MG capsule Take 1 capsule by mouth Daily. 3 Active multivitamin with minerals (Centrum Silver Adult 50+) tablet tablet Take 1 tablet by mouth Daily. Active Gentle Laxative 5 MG EC tablet Take 1 tablet by mouth Daily. 4 Active Diclofenac Sodium (Voltaren Arthritis Pain) 1 % gel gel Apply 4 g topically to the appropriate area as directed 4 (Four) Times a Day As Needed (knee pain). 20 g 4 Active folic acid (FOLVITE) 1 MG tablet Take 1 tablet by mouth Daily. 4 Active ipratropium (ATROVENT) 0.03 % nasal spray Administer 1 spray into the nostril(s) as directed by provider 2 (Two) Times a Day. 4 Active methotrexate 2.5 MG tablet TAKE 8 TABLETS BY MOUTH EVERY WEEK 4 Active levocetirizine (XYZAL) 5 MG tablet Take 1 tablet by mouth Every Evening. 5 Active hydroxychloroqu ine (PLAQUENIL) 200 MG tablet Take 1 tablet by mouth Every 12 (Twelve) Hours. 5 Active aspirin 81 MG EC tablet Take 1 tablet by mouth Daily. 90 tablet 3 5 Active atorvastatin (LIPITOR) 80 MG tablet Take 1 tablet by mouth Daily. 90 tablet 3 5 Active metoprolol tartrate (LOPRESSOR) 25 MG tablet Take 0.5 tablets by mouth Every 12 (Twelve) Hours. 90 tablet 1 5 Active nitroglycerin (NITROSTAT) 0.4 MG SL tablet 1 under the tongue as needed for angina, may repeat q5mins for up three doses 25 tablet 3 5 Active Active Problems Problem Noted Date Diagnosed Date Essential hypertension 02/07/2024 Assessment & Plan (02/06/2025 3:51 PM EDT): Hypertension is stable and controlled Continue current treatment regimen. Blood pressure will be reassessed in 6 months. Assessment & Plan (05/24/2024 9:38 AM EST): Well controlled, continue current medications. Bilateral carotid artery stenosis 02/07/2024 Assessment & Plan (05/24/2024 9:38 AM EST): As above, states that it would be easier for him to get duplex done in our office here. Encounter for care related to vascular access po rt 10/31/2022 Encounter for long-term (current) use of medicat ions 03/04/2022 Malignant neoplasm of upper lobe of right lung 0 09/14/2021 Cancer Staging:Clinical:Stage IIIA(cT1b, cN2, cM0) - Signed by Wilmar Marshall MD on 10/07/2021 DINA 09/13/2021 Overview (08/14/2024): Baseline AHI is 25. This is moderate sleep apnea. Assessment & Plan (02/06/2025 3:50 PM EDT): No longer using. Assessment & Plan (10/10/2024 6:20 PM EDT): Patient has a known history of moderate sleep apnea. Baseline AHI is 25. Patient reports that he did try multiple mask and this CPAP mask is uncomfortable. Patient reports that the airflow on the CPAP is uncomfortable. Patient reports that he stopped CPAP and his sleep was much improved. Patient reports he turned his PAP machine back into his DME. We discussed today options of reordering the PAP, trying a titration study to get him entirely comfortable on the mask and pressure, we discussed surgical options such as an inspire but at this time patient is not interested in any treatment for his sleep apnea. He verbalized understanding of moderate risk of untreated sleep apnea such as sleep , heart attack, stroke, blood clots. Patient verbalized understanding and said he is willing to accept the risk because he really does not like that PAP machine. We discussed that he could follow-up as needed if his symptoms increased if he is having snoring at night or gasping for air at night or if he is having excessive daytime sleepiness then come back and we can rediscuss treatment options. Patient verbalized understanding. Assessment & Plan (08/14/2024 12:25 PM EST): He reports he got a different type of mask and is comfortable and is not having any issues now that he has changed his mask so he did not do the titration study. He does not feel that he needs it. PAP compliance report dated 07/10/2024 to 08/08/2024 download interpreted in clinic today. Shown patient uses his machine 83% of the time, over 4 hours 30% of the time, for an average use of 3 hours and 19 minutes. His AirSense 11 AutoSet is set 6- 18 with an EPR of 3. His AHI is 2.7 showing excellent control room for improvement on compliance. He does feel like he benefits from PAP therapy when he uses it and plans to improve his usage time now that he has a more comfortable mask that does not leak. Assessment & Plan (07/11/2024 4:22 PM EST): Baseline AHI is 25. This is moderate sleep apnea. Discussed in detail today patient PSG, diagnosis of sleep apnea, treatment options and risk of untreated sleep apnea. Patient reports that he did get a call and asked to start CPAP therapy. He reports that he is using a nasal mask and that his mouth is opening. He reports he has not been able to fall asleep with CPAP on. He reports the airflow is not comfortable. Plan: Prescription to DME of patient's choice to have a mask fitting and consider moving from a nasal mask to a full facemask. Discussed consideration that he may need a BiPAP as his CPAP airflow is not comfortable. He feels like he juan luis. Titration study for consideration of CPAP versus BiPAP. Consideration is given for referral for an inspire device. We discussed that he may need to check with his oncology team to see if he is an appropriate candidate for inspire as he had radiation to the right chest wall. We discussed that he should give the titration study a try and if he does not tolerate CPAP or BiPAP then we can again discuss a referral for inspire. Patient is satisfied with this explanation and will continue moving forward with PAP therapy trial. Follow-up after titration study or in about 1 month to see if improved use of CPAP with mask change. Assessment & Plan (05/24/2024 9:38 AM EST): Will start with updated sleep study. May not be an inspire candidate. Will have to retry CPAP as it has been many years. 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 While helping his son-in-law move a chair he said he became very short of breath. He said this is new for him that normally he could do that without any problem. I will send a message to his vertical lathe operator at the request of the patient as a FYI. Also updated EKG and scanned in the chart for his vertical lathe operator to review. No chest pain, palpitations, dizziness, or syncope. Indigestion 05/03/2018 Overview (05/03/2018): Added automatically from request for surgery [id number] Erythrocytosis 05/09/2017 CAD s/p CABG Overview (07/08/2016): a. Acute lateral ST elevation myocardial infarction, 07/15/2013. b. Emergent cardiac catheterization, 07/15/2013, revealing severe 3-vessel disease. c. Status post export thrombectomy to the mid-circumflex artery, 07/15/2013, Nadia Garcia MD. d. Status post coronary artery bypass grafting x4, 07/16/2013, Christian Mackey MD: Saphenous vein graft to the ramus and circumflex, saphenous vein graft to the PDA, EATON to the LAD. e. Echocardiogram, 07/15/2013, Nadia Garcia MD, revealing a left ventricular ejection fraction 50% to 55% with posterior lateral hypokinesis, moderate mitral regurgitation and trace tricuspid regurgitation. Assessment & Plan (02/06/2025 3:50 PM EDT): Coronary Artery Disease (OPTIONAL): Coronary artery disease is stable. Continue current treatment regimen. Continue current medications. Cardiac status will be reassessed in 6 months. Assessment & Plan (05/24/2024 9:38 AM EST): Sees Dr. Garcia. Mentioned that follow up in [place] would be easier for him here. He is going to consider if he would like to change since he is already established and familiar with that provider. Syncope Overview (07/08/2016): a. Echocardiogram, dated 02/03/2015 showed a left ventricular ejection fraction of 50% to 55% with mild mitral regurgitation and mild tricuspid regurgitation. Very mild posterolateral hypokinesis was noted. b. EKG showed sinus bradycardia at 47 bpm on admission. c. Holter monitor 02/04/2015, showing normal sinus rhythm with rare PAC's, rare PVC's, no pulses and no diary events. Dyslipidemia Hyperlipidemia LDL goal <70 Resolved Problems Problem Noted Date Diagnosed Date Resolved Date Lung nodule seen on imaging study 09/25/2020 07/14/2021 DINA on CPAP 05/31/2021 Overview (07/08/2016): severe Encounters Date Type Department Care Team Description 02/28/2025 Results Follow-Up [facility] [place] [address] Vandana Ramirez, KELLER MACHINE OPERATOR 02/16/2025 Refill [facility] [address] [place] [address] Nadia Garcia MD Med Refill 02/11/2025 Refill [facility] [place] [address] Cierra Williamson MD Med Refill 02/10/2025 Telephone [facility] [address] [place] [address] Vandana Ramirez, KELLER MACHINE OPERATOR 02/07/2025 Results Follow-Up [facility] [place] [address] Vandana Ramirez, KELLER MACHINE OPERATOR 02/05/2025 11:30 AM EDT Office Visit [facility] [place] [address] [place] [address] Vandana Ramirez, KELLER MACHINE OPERATOR CAD s/p CABG ; Essential hypertension; Abnormal finding of blood chemistry, unspecified; DINA 02/05/2025 Patient rounding ([facility] only) [facility] [place] [address] Vandana Ramirez, KELLER MACHINE OPERATOR 02/05/2025 Travel 01/17/2025 Telephone [facility] [address] [place] [address] Nadia Garcia MD 01/16/2025 Refill [facility] [address] [place] [address] Nadia Garcia MD Med Refill from Last 3 Months Immunizations Immunization Administration Dates Next Due COVID-19 (MODERNA) 1st,2nd,3 rd Dose Monovalent 05/10/2021,08/29/2020,08/07/2020 COVID-19 (MODERNA) Monovalen t Original Booster 09/27/2021 FLUAD TRI 65YR+ 04/14/2021 Fluzone High-Dose 65+YRS 04/16/2020 Fluzone High-Dose 65+yrs 04/05/2021 Hepatitis A 05/02/2018 Pneumococcal Conjugate 13-Valent (PCV13) 020 Shingrix 09/13/2019,07/11/2019 Tdap 12/21/2017 Zostavax 06/14/2016 Family History Medical History Relation Name Comments Coronary artery disease Father Heart attack Mother Heart disease Mother Cirrhosis Neg Hx Colon cancer Neg Hx Crohn's disease Neg Hx Liver cancer Neg Hx Liver disease Neg Hx Ulcerative colitis Neg Hx Relation Name Status Comments Father Mother Social History Tobacco Use Types Packs/Day Years Used Date Smoking Tobacco: Former Cigarettes 1 40 1 974 - 2013 Passive Smoke Exposure: Past Smokeless Tobacco: Never Tobacco Cessation:Counseling Given: Not Answered Comments:with cessation, 07/15/2013 Alcohol Use Standard Drinks/Week Comments Not Currently [...] Sign Reading Time Taken Comments Blood Pressure 114/64 02/05/2025 11:42 AM EDT Pulse 75 02/05/2025 11:42 AM EDT Temperature 36.3 C (97.4 F) 12/02/2024 8:54 AM EDT Respiratory Rate 16 12/02/2024 8:54 AM EDT Oxygen Saturation 99% 02/05/2025 11:42 AM EDT Inhaled Oxygen Concentration - - Weight 80.7 kg (178 lb) 02/05/2025 11:42 AM EDT Height 170.2 cm (5' 7 ) 02/05/2025 11:42 AM EDT Body Mass Index 27.88 02/05/2025 11:42 AM EDT Plan of Treatment Upcoming Encounters Date Type Department Care Team (Late st Contact Info) Description 04/08/2025 1:00 PM EDT Appointment [facility] AT [address] [phone] 04/15/2025 1:30 PM EDT Office Visit [facility] [address] [place] [address] Talisha Ozuna, KELLER MACHINE OPERATOR [address] [place] [address] 07/09/2025 11:30 AM EST Office Visit [facility] [address] [place] [address] Nadia Garcia MD [address] [place] [address] 08/12/2025 10:30 AM EST Office Visit [facility] [address] [place] [phone] Vandana Ramirez, KELLER MACHINE OPERATOR [address] [id number] Health Maintenance Due Date Last Done Comments COLOGUARD 1994 COLON CANCER SCREENING 5 YEA R SIGMOIDOSCOPY [address] COLONOGRAPHY 1994 FECAL OCCULT BLOOD TEST 1994 FIT Testing (1 year) 1994 ANNUAL WELLNESS VISIT 06/14/2017 06/14/2016 Pneumococcal Vaccine 50+ (2 of 2 - PPSV23) 07/13/2020 05/18/2020 RSV Vaccine - Adults (1 - 1- dose 75+ series) 2024 INFLUENZA VACCINE 01/31/2025 03/14/2024, , 04/07/2022, Additional history exists LIPID PANEL 02/06/2025 02/07/2024, 12/31, 01/19/2022, Additional history exists COVID-19 Vaccine (7 - 2023-2 5 season) 2025 03/14/2024, 04/05/2023, 10/22/2021, Additional history exists TDAP/TD VACCINES (2 - Td or Tdap) 12/22/2027 018 COLONOSCOPY 06/16/2031 06/16/2021, 06/02, 06/09/2016 COLORECTAL CANCER SCREENING 06/16/2031 AAA SCREEN ONCE Completed 12/01/2018, 09/02, 04/30/2015 ZOSTER VACCINE Completed 09/13/2019, 03/2020, 06/14/2016 HEPATITIS C SCREENING Completed 02/28/2024 LUNG CANCER SCREENING Discontinued 10/08/2024 , 04/02/2024, 10/02/2023, Additional history exists Medical Devices Implanted Type Area Barrel Repairer Device Identifier Shelf Expiration Date Model / Serial / Lot Stplr Autosuture Reloadable Ta30 3.8mm - [id number] Implanted:Qty : 1 on 09/14/2021 by Christian Mackey MD at [facility] Implant Right: Bronchus COVIDIEN [id number] 08/02/2024 [id number] / / [id number] Reload Stplr Endo Negrita Tristaple 2.0 45 Art Vasc Md Edwardsv - [id number] Implanted:Qty : 4 on 09/14/2021 by Christian Mackey MD at [facility] Implant Right: Bronchus COVIDIEN [id number] 01/30/2026 [id number] VM / / [id number] Reload Stplr Endo Negrita Tristaple 60 Art [facility] - [id number] Implanted:Qty : 1 on 09/14/2021 by Christian Mackey MD at [facility] Implant Right: Bronchus COVIDIEN [id number] 07/02/2025 [id number] T / / Reload Stplr Endo Negrita Tristaple 60 Art Md Rosales - [id number] Implanted:Qty : 1 on 09/14/2021 by Christian Mackey MD at [facility] Implant Right: Bronchus COVIDIEN [id number] 10/30/2025 [id number] T / / [id number] Reload Stplr Endo Negrita Tristaple 2.0 45 Art Vasc Md Ramos - [id number] Implanted:Qty : 1 on 09/14/2021 by Christian Mackey MD at [facility] Implant Right: Bronchus COVIDIEN [id number] 05/02/2024 [id number] VM / / [id number] Cartrdg Stpl Loading Unit For [id number] - [id number] Implanted:Qty : 1 on 09/14/2021 by Christian Mackey MD at [facility] Implant Right: Bronchus COVIDIEN [id number] 11/30/2022 [id number] / / [id number] X Prt Intro Vasc/Interv Vortex Fill/Hl Detach/Polyur et/Cath 8f - [id number] Implanted:Qty : 1 on 10/20/2021 by Yohannes Beauchamp MD at [facility] Implant Left: Subclavian [employer] 09/30/2024 [id number] / / [id number] Procedures Procedure Name Priority Date/Time Associated Diagnosis Comments NERVE CONDUCTION TEST Routine 02/26/2025 Leg pain, bilateral IRON PROFILE Routine 02/07/2025 CAD s/p CABG Essential hypertension Abnormal finding of blood chemistry, unspecified CT CHEST W CONTRAST Routine 10/08/2024 1 1:07 AM EDT Malignant neoplasm of upper lobe of right lung LIPID PANEL Routine 02/07/2024 1:49 PM EDT Dyslipidemia CAD s/p CABG CT ABDOMEN PELVIS WO CONTRAST STAT 12/01/2018 4:51 AM EDT from Last 3 Months or Most Recently Relevant to Health Maintenance Results * Nerve Conduction Test (02/26/2025) Vandana Ramirez APRN NEUROLOGY ORDERABLE S Final Result Performing Organization Address City/[facility] Co de Phone Number NEUROLOGY * Iron Profile (02/07/2025) Blood Vandana Ramirez APRN LAB BLOOD ORDERABLE S Final Result Performing Organization Address City/[facility] Co de Phone Number [facility]
[address] [place] [address], * CT Chest With Contrast Diagnostic (10/08/2024 11:07 AM EDT) Anatomical Region Laterality Modality Chest N/A Computed Tomogra phy 10/11/2024 12:5 1 PM EDT Impressions 10/11/2024 12:54 PM EDT Impression: 1.No acute process nor significant change identified Electronically Signed: Sarabjit Ferrer MD 10/11/2024 12:54 PM EDT Workstation ID: [id number] Narrative 10/11/2024 12:[address] CHEST W CONTRAST DIAGNOSTIC Date of Exam: 10/08/2024 10:45 AM EDT Indication: Follow-up lung cancer. Comparison: 04/02/2024 Technique: Axial CT images were obtained of the chest after the uneventful intravenous administration of 80 cc Isovue 300. Reconstructed coronal and sagittal images were also obtained. Automated exposure control and iterative construction methods were used. Findings: MEDIASTINUM: Sternotomy. Aortic and heart size are normal. No mass nor pericardial effusion. CORONARY ARTERIES: There is calcified atherosclerotic disease. LUNGS: Right upper lobectomy. There is similar post therapy changes involving the medial aspect of the right upper lung. The well-defined nodular mass. No suspicious nodules or consolidation. PLEURAL SPACE: No effusion, mass, nor pneumothorax. LYMPH NODES: There are no pathologically enlarged lymph nodes. UPPER ABDOMEN: Similar 1.2 cm hypodense area within the anterior liver near the dome (image 55, series 2) OSSEOUS STRUCTURES: Appropriate for age with no acute process identified. Procedure Note Sarabjit Ferrer MD - 10/11/2024 CT CHEST W CONTRAST DIAGNOSTIC Date of Exam: 10/08/2024 10:45 AM EDT Indication: Follow-up lung cancer. Comparison: 04/02/2024 Technique: Axial CT images were obtained of the chest after the uneventfulintravenous administration of 80 cc Isovue 300. Reconstructed coronal andsagittal images were also obtained. Automated exposure control anditerative construction methods were used. Findings: MEDIASTINUM: Sternotomy. Aortic and heart size are normal. No mass norpericardial effusion. CORONARY ARTERIES: There is calcified atherosclerotic disease. LUNGS: Right upper lobectomy. There is similar post therapy changesinvolving the medial aspect of the right upper lung. The well-definednodular mass. No suspicious nodules or consolidation. PLEURAL SPACE: No effusion, mass, nor pneumothorax. LYMPH NODES: There are no pathologically enlarged lymph nodes. UPPER ABDOMEN: Similar 1.2 cm hypodense area within the anterior livernear the dome (image 55, series 2) OSSEOUS STRUCTURES: Appropriate for age with no acute processidentified. IMPRESSION: Impression: 1.No acute process nor significant change identified Electronically Signed: Sarabjit Ferrer MD 10/11/2024 12:54 PM EDT Workstation ID: [id number] Wilmar Marshall MD IMG CT ORDERABLES Final Result * (ABNORMAL) Lipid Panel (02/07/2024 1:49 PM EDT) Total Cholesterol 121 0 - 200 mg/dL 02/07/2024 9:07 PM EDT [facility] Triglycerides 130 0 - 150 mg/dL 02/07/2024 9:07 PM EDT [facility] HDL Cholesterol 32(L) 40 - 60 mg/dL 02/07/2024 9:07 PM EDT [facility] LDL Cholesterol 66 0 - 100 mg/dL 02/07/2024 9:07 PM EDT [facility] VLDL Cholesterol 23 5 - 40 mg/dL 02/07/2024 9:07 PM EDT [facility] LDL/HDL Ratio 1.97 02/07/2024 9:07 PM EDT [facility] Blood Venipuncture / Unknown 02/07/2024 1:49 PM EDT 02/07/2024 1:49 PM EDT Narrative [facility] - 02/07/2024 9:07 PM EDT Cholesterol Reference Ranges (U.S. Department of Health and Human Services ATP III Classifications) Desirable <200 mg/dL Borderline High 200-239 mg/dL High Risk >240 mg/dL Triglyceride Reference Ranges (U.S. Department of Health and Human Services ATP III Classifications) Normal <150 mg/dL Borderline High 150-199 mg/dL High 200-499 mg/dL Very High >500 mg/dL HDL Reference Ranges (U.S. Department of Health and Human Services ATP III Classifications) Low <40 mg/dl (major risk factor for CHD) High >60 mg/dl ('negative' risk factor for CHD) LDL Reference Ranges (U.S. Department of Health and Human Services ATP III Classifications) Optimal <100 mg/dL Near Optimal 100-129 mg/dL Borderline High 130-159 mg/dL High 160-189 mg/dL Very High >189 mg/dL Nadia Garcia MD LAB BLOOD ORDERABLES Fi nal Result [facility]
[address] [place] [address], * CT Abdomen Pelvis Without Contrast (12/01/2018 4:51 AM EDT) Anatomical Region Laterality Modality Abdomen, Pelvis N/A Computed Tomogra phy 12/01/2018 8:17 AM EDT Impressions 12/01/2018 8:20 AM EDT No renal or ureteral stone or hydronephrosis. Vague low-attenuation focus in the liver dome of uncertain significance. If indicated this could be further evaluated with postcontrast CT or liver MRI. This report was finalized on 12/01/2018 8:20 AM by Sharath Adair MD. Narrative 12/01/2018 8:20 AM EDT PROCEDURE: CT ABDOMEN PELVIS WO CONTRAST- HISTORY: hematuria COMPARISON: None TECHNIQUE: Axial CT images of the abdomen and pelvis were obtained without contrast. Coronal reformatted images were also obtained.This study was performed with techniques to keep radiation doses as low as reasonably achievable, (ALARA). Individualized dose reduction techniques using automated exposure control or adjustment of mA and/or kV according to the patient size were employed. FINDINGS: ABDOMEN: The lung bases are clear. There is no evidence of renal stone or hydronephrosis. Postoperative changes are seen from cholecystectomy. There is a vague 13 mm low-attenuation focus in the anterior liver dome with a nonspecific appearance. The pancreas and spleen have an unremarkable appearance. No mass or adenopathy is seen. No inflammatory process is identified. PELVIS: Images of the pelvis reveal no evidence of ureteral dilatation or ureteral stone. No mass or abnormal fluid collection is identified. The appendix is visualized and has an unremarkable CT appearance. Procedure Note Sharath Adair MD - 12/01/2018 PROCEDURE: CT ABDOMEN PELVIS WO CONTRAST- HISTORY: hematuria COMPARISON: None TECHNIQUE: Axial CT images of the abdomen and pelvis were obtained without contrast. Coronal reformatted images were also obtained.This study was performed with techniques to keep radiation doses as low as reasonably achievable, (ALARA). Individualized dose reduction techniques using automated exposure control or adjustment of mA and/or kV according to the patient size were employed. FINDINGS: ABDOMEN: The lung bases are clear. There is no evidence of renal stone or hydronephrosis. Postoperative changes are seen from cholecystectomy. There is a vague 13 mm low-attenuation focus in the anterior liver dome with a nonspecific appearance. The pancreas and spleen have an unremarkable appearance. No mass or adenopathy is seen. No inflammatory process is identified. PELVIS: Images of the pelvis reveal no evidence of ureteral dilatation or ureteral stone. No mass or abnormal fluid collection is identified. The appendix is visualized and has an unremarkable CT appearance. IMPRESSION: No renal or ureteral stone or hydronephrosis. Vague low-attenuation focus in the liver dome of uncertain significance. If indicated this could be further evaluated with postcontrast CT or liver MRI. This report was finalized on 12/01/2018 8:20 AM by Sharath Adair MD. Esteban Velez DO IMG CT ORDERABLES Final Result from Last 3 Months or Most Recently Relevant to Health Maintenance Insurance MEDICARE A & B Advance Directives * CPR (Attempt to Resuscitate) (Latest Code Status on File) Date Activated Date Inactivated Comments 07/20/2023 12:31 PM 07/20/2023 3:09 PM Question Answer Comments Code Status (Patient has no pulse and is not breathing): CPR (Attempt to Resuscitate) Medical Interventions (Patie nt has pulse or is breathing): Full Support * CPR (Attempt to Resuscitate) Date Activated Date Inactivated Comments 10/21/2021 4:51 PM 07/20/2023 8:52 AM No physician signature needed for this code status. Marco A as Signed. * CPR (Attempt to Resuscitate) Date Activated Date Inactivated Comments 09/14/2021 12:55 PM 09/29/2021 4:43 PM Question Answer Comments Code Status (Patient has no pulse and is not breathing): CPR (Attempt to Resuscitate) Medical Interventions (Patie nt has pulse or is breathing): Full Support Care Teams Ferryboat Ticket Taker Relationship Specialty Start Date End Date Hedy Baptiste DO [address] [place] [address] PCP - General Family Medicine 04/15/21
--- OUTSIDE RECORDS SUMMARY | 2025-04-08 09:46 | XMS_ITS | Encounter Summary ---
[facility] Address [address] [place] [address] Care Team Providers Care Front Tender Name Role Phone Hedy Baptiste DO Primary Care Provider +1 [phone] Encounter Details Date Type Department Care Team (Late st Contact Info) Description 02/10/2025 Telephone [facility] CARDIOLOGY [address] [place] [address] Vandana Ramirez APRN [address] [place] [address] Social History Tobacco Use Types Packs/Day Years [...] as of this encounter Miscellaneous Notes * Telephone Encounter - Анна Geiger RN - 02/11/2025 9:53 AM EDT PT REQUESTING REFILLS OF METOPROLOL AND NITROGLYCERIN. REFILLS SENT TO [facility] REQUESTED. * Telephone Encounter - Melissa Young MA - 02/11/2025 9:52 AM EDT Left message for pt to call back. * Telephone Encounter - Bere Delgado RegSched Rep - 02/10/2025 4:52 PM EDT Patient called and LVM asking for a doctor or nurse to call him back when possible. documented in this encounter Plan of Treatment Upcoming Encounters Date Type Department Care Team (Late st Contact Info) Description 04/08/2025 1:00 PM EDT Appointment [facility] [address] [place] [address] 04/15/2025 1:30 PM EDT Office Visit [facility]EM[facility] & ONCOLOGY [address] [facility] [address] [place] [address] Talisha Ozuna, WATERSHED COORDINATOR [address] [place], [place] [id number] 07/09/2025 11:30 AM EST Office Visit [facility] C[facility] [address] [place] [address] Nadia Garcia MD [address] [place], [place] [id number] 08/12/2025 10:30 AM EST Office Visit [facility] C[facility]IOLOG[facility] [address] [place] [address] Vandana Ramirez, SNEHA [address] [place], [place] [id number] documented as of this encounter Visit Diagnoses Not on filedocumented in this encounter Care Teams Front Tender Relationship Specialty Start Date End Date Hedy Baptiste DO [address] [place] [address] PCP - General Family Medicine 04/15/21 documented as of this encounter
--- OUTSIDE RECORDS SUMMARY | 2025-04-08 09:46 | XMS_ITS | Encounter Summary ---
[facility] Address [address] [place] [address] Care Team Providers Care Cheese Processor Name Role Phone Hedy Baptiste DO Primary Care Provider [phone] Reason for Referral * Diagnostic Medical (Routine) - Closed Specialty Diagnoses / Procedures Referred By Contac t Referred To Contact Neurology Diagnoses Leg pain, bilateral Procedures Nerve Conduction Test Vandana Ramirez APRN [address] [place] [address] Phone: tel: fax: Earl Marlow MD [address] [facility] [address] [place] [address] Phone: tel: fax: Referral ID Status Reason Start Date Expiration Date Visits Re quested Visits Authorized [id number] Closed 02/11/2025 05/13/2026 1 1 Encounter Details Date Type Department Care Team (Late st Contact Info) Description 02/07/2025 Results Follow-Up [facility] CARDIOLOGY [address] [place] [phone] Vandana Ramirez APRN [address] [place], [place] [phone] Social History Tobacco Use Types Packs/Day Years [...] as of this encounter Progress Notes * Vandana Ramirez APRN - 02/11/2025 4:30 PM EDT Test ordered. Thanks. documented in this encounter Plan of Treatment Upcoming Encounters Date Type Department Care Team (Late st Contact Info) Description 04/08/2025 1:00 PM EDT Appointment [facility] [address] [place] [phone] 04/15/2025 1:30 PM EDT Office Visit [facility] HEMAT[facility] & ONCOLOGY [address] [place] [address] Talisha Ozuna, DIRECTOR OF VENDOR MANAGEMENT [address] [place] [address] 07/09/2025 11:30 AM EST Office Visit [facility] C[facility] [address] [place] [phone] Nadia Garcia MD [address] [facility] [address] [place], [place] [id number] 08/12/2025 10:30 AM EST Office Visit [facility] C[facility] [address] [place] [address] Vandana Ramirez APRN [address] [place] [address] documented as of this encounter Results * Nerve Conduction Test (02/26/2025) Vandana Ramirez APRN NEUROLOGY ORDERABLE S Final Result Performing Organization Address City/State/[facility] Co de Phone Number NEUROLOGY documented in this encounter Visit Diagnoses Diagnosis Leg pain, bilateral- Primary Pain in soft tissues of limb documented in this encounter Care Teams Cheese Processor Relationship Specialty Start Date End Date Hedy Baptiste DO [address] [place] [address] PCP - General Family Medicine 04/15/21 documented as of this encounter
--- OUTSIDE RECORDS SUMMARY | 2025-04-08 09:46 | XMS_ITS | Encounter Summary ---
[facility] [address] [place] [address] Care Team Providers Care Turnstile Attendant Name Role Phone Emile Hedyabbey Solano DO Primary Care Provider [phone] Encounter Details Date Type Department Care Team (Late st Contact Info) Description 02/28/2025 Results Follow-Up [facility] CARDIOLOGY [address] [place] [address] Vandana Ramirez APRN [address] [place] [address] Social History Tobacco Use Types Packs/Day Years [...] Progress Notes * Vandana Ramirez APRN - 02/28/2025 3:13 PM EDT Please call the patient regarding his abnormal result and let him know he has quite a bit 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 Especially since his arterial scans did not show and PVD. Dr. Baptiste has him on Gabapentin (which is the treatment of choice for neuropathy in legs). Please let him know we are going to reach out to let Dr. Baptiste know about the results and seeif she would like to manage it or if she wants us to send him to Neurology but he may end up needing an increased Gabapentin dose. If he is ok with us reaching out to Dr. Baptiste, please call her office with the above info and results and ask what she prefers I do. Thanks. documented in this encounter Miscellaneous Notes * Telephone Encounter - Rafy Appiah RegSched Rep - 03/04/2025 11:08 AM EDT PT CALLED BACK LVM ASKING FOR A CALL BACK. THANKS documented in this encounter Plan of Treatment Upcoming Encounters Date Type Department Care Team (Late st Contact Info) Description 04/08/2025 1:00 PM EDT Appointment [facility] [address] [place] [address] 04/15/2025 1:30 PM EDT Office Visit [facility] HEMATOLOGY & ONCOL[facility]Y [address] [facility] [address] [place] [address] Talisha Ozuna, COMMUNITY EDUCATION SPECIALIST [address] [place] [address] 07/09/2025 11:30 AM EST Office Visit [facility] CARDIOLOGY [address] [place] [address] Nadia Garcia MD [address] [facility] [address] [place], [place] [id number] 08/12/2025 10:30 AM EST Office Visit [facility] CARDIOLOGY [address] [place] [address] Vandana Ramirez, SNEHA [address] [place], [place] [phone] documented as of this encounter Visit Diagnoses Not on filedocumented in this encounter Care Teams Turnstile Attendant Relationship Specialty Start Date End Date Hedy Baptiste DO [address] [place] [address] PCP - General Family Medicine 04/15/21 documented as of this encounter
--- OUTSIDE RECORDS SUMMARY | 2025-04-08 09:46 | XMS_ITS | Encounter Summary ---
[facility] Address [address] [place] [address] Care Team Providers Care Scrap Shear Operator Name Role Phone YeyoHedy murray Xiomara Primary Care Provider [phone] Encounter Details Date Type Department Care Team (Late st Contact Info) Description 01/21/2022 Telephone [facility] [address] [place] [address] Miranda Magana, MAIKOL Social History Tobacco Use Types Packs/Day Years Used Date Smoking Tobacco: Former Cigarettes 1 40 1 974 - 2013 Smokeless Tobacco: Never Comments:with cessation, Alcohol Use [...] PHQ-9: Brief Depression Severity Measure Score 0 10/19/2021 Sex and Gender Information Value Date Recorded Sex Assigned at Not on file Legal Sex Male 1:37 PM EDT Gender Identity Not on file Sexual Orientation Not on file documented as of this encounter Plan of Treatment Upcoming Encounters Date Type Department Care Team (Late st Contact Info) Description 04/08/2025 1:00 PM EDT Appointment [facility] [address] [place] [address] 04/15/2025 1:30 PM EDT Office Visit [facility] HEMATOLOGY & ONCOLOGY [address] [place] [address] Talisha Ozuna, MEDICAL CLAIMS ASSISTANT [address] [place] [address] 07/09/2025 11:30 AM EST Office Visit [facility] CARDIOLOG[facility] [address] [facility] [address] [place] [address] Nadia Garcia MD [address] [facility] [address] [place], [place] [phone] 08/12/2025 10:30 AM EST Office Visit [facility] CARDIOLOGY [address] [place] [address] Vandana Ramirez, SNEHA [address] [place], [place] [address] documented as of this encounter Visit Diagnoses Not on filedocumented in this encounter Care Teams Scrap Shear Operator Relationship Specialty Start Date End Date Hedy Baptiste DO [address] [place] [address] PCP - General Family Medicine 04/15/21 documented as of this encounter
--- OUTSIDE RECORDS SUMMARY | 2025-04-08 09:46 | XMS_ITS | Encounter Summary ---
[facility] [address] [place] [address] Care Team Providers Care Public Relations Representative Name Role Phone YeyoHedy murray Xiomara Primary Care Provider [phone] Encounter Details Date Type Department Care Team (Late st Contact Info) Description 06/06/2022 Telephone [facility] [address] [place] [address] Miranda Magana, MAIKOL Social History [...] Info) Description 04/08/2025 1:00 PM EDT Appointment [facility] [address] [place] [address] 04/15/2025 1:30 PM EDT Office Visit [facility] HEMATOLOGY & ONCOLOGY [address] [place] [address] Talisha Ozuna, OUTBOUND SALES EXECUTIVE [address] [place] [address] 07/09/2025 11:30 AM EST Office Visit [facility] [address] [facility] [address] [place] [address] Nadia Garcia MD [address] [facility] [address] [place], [place] [phone] 08/12/2025 10:30 AM EST Office Visit [facility] CARDIOLOG[facility] [address] [place] [address] Vandana Ramirez, SNEHA [address] [place], [place] [phone] documented as of this encounter Visit Diagnoses Not on filedocumented in this encounter Care Teams Public Relations Representative Relationship Specialty Start Date End Date Hedy Baptiste DO [address] [place] [address] PCP - General Family Medicine 04/15/21 documented as of this encounter
--- OUTSIDE RECORDS SUMMARY | 2025-04-08 09:46 | XMS_ITS ---
Author Organization [facility] Address [address] [place] [address] Care Team Providers Care Accounts Payable Payroll Coordinator Name Role Phone Hedy Baptiste DO Primary Care Provider [phone] Active Problems Problem Noted Date Diagnosed Date [...] I will send a message to his security services manager at the request of the patient as a FYI. Also updated EKG and scanned in the chart for his security services manager to review. No chest pain, palpitations, dizziness, or syncope. Indigestion 05/03/2018 Overview (05/03/2018): Added automatically from request for surgery [id number] Erythrocytosis 05/09/2017 CAD s/p CABG Overview (07/08/2016): [...] Dr. Garcia. Mentioned that follow up in [place] would be easier for him here. He [...] diary events. Dyslipidemia Hyperlipidemia LDL goal <70 Current Treatment and Therapy Plans No current plan information found. Past Treatment and Therapy Plans ONCOLOGY TREATMENT Plan Name Start Date Discontinue Date Treatment Medications Discontinue Reason Plan Provider Cycles OP LUNG PEMEtrexed / CARBOplatin AUC=6 2 02/03/2022 CARBOplatin (PARAPLATIN) chemo IVPB (by AUC)PEMEtrexed (ALIMTA) chemo IVPB Therapy Complete Wilmar Marshall MD 4 of 4 cycles started ONCOLOGY TREATMENT 2 Plan Name Start Date Discontinue Date Treatment Medications Discontinue Reason Plan Provider Cycles OP LUNG Durvalumab 02/04/2022 02/06/2023 durvalumab (IMFINZI) chemo IVPB solution Therapy Complete Wilmar Marshall MD of cycles started Therapy Plan 1 - Infusion Treatment Plan Name Start Date Discontinue Date Treatment Medications Discontinue Reason Plan Provider OP CENTRAL VENOUS ACCESS DEVICE Access, Care, and Maintenance (CVAD) 12/12/2022 09/26/2023 No medications scheduled. Therapy Complete Wilmar Marshall MD OP CENTRAL VENOUS ACCESS DEVICE ACCESS, CARE, AND MAINTENANCE (CVAD) 10/28/2021 12/12/2022 No medications scheduled. Prescription Talisha Ozuna APRN Therapy Plan 2 Plan Name Start Date Discontinue Date Treatment Medications Discontinue Reason Plan Provider OP CVAD OCCLUSION - ALTEPLASE 06/13/2022 09/26/2023 No medications scheduled. Therapy Complete Wilmar Marshall MD Treatment Summaries Malignant neoplasm of upper lobe of right lung* Images from the original note were not included. Lung Cancer Survivorship Plan General Information Patient name Cruz Wray Date of 1950 Phone Email [email or web address] Cancer Treatment Team Patient Care Team: Wilmar Marshall MD as Referring Physician (Hematology and Oncology) Christian Mackey MD as Surgeon (Cardiothoracic Surgery) Nadia Garcia MD as Consulting Physician (Cardiology) Cristy Gonzalez MD as Consulting Physician (Radiation Oncology) Talisha Ozuna APRN as Nurse Practitioner (Hematology and Oncology) Provider Phone numbers Care Team Provider: Wilmar Marshall MD, ([phone]) Care Team Provider: Christian Mackey MD, ([phone]) Care Team Provider: Nadia Garcia MD, ([phone]) Care Team Provider: Cristy Gonzalez MD, ([phone]) Care Team Provider: Talisha Ozuna APRN, ([phone]) Post Treatment Care Team Primary Care Physician Hedy Baptiste DO [phone] [facility] [place] [address] Background Information Medical history Past Medical History: Coronary artery disease Dyslipidemia Dysrhythmia takes medicine to slow heart rate down GERD (gastroesophageal reflux disease) History of ERCP History of radiation therapy right lung tumor bed Hyperlipidemia Hyperlipidemia Hypertension Malignant neoplasm of upper lobe of right lung Myocardial infarction JULY 15, 2013 Prediabetes Sleep apnea PATIENT DOES NOT USE HIS CPAP MACHINE-PER THE PATIENT Syncope Tobacco abuse with cessation, 07/15/2013 Vitamin B12 deficiency Surgical history Past Surgical History: ARTERIAL THROMBECTOMY BRONCHOSCOPY THORACOTOMY Procedure: UPPER LOBE THORACOTOMY WITH LYMPH NODES RIGHT; Surgeon: Christian Mackey MD; Location:[facility] OR; Service: Cardiothoracic; Laterality: Right; CARDIAC CATHETERIZATION CHOLECYSTECTOMY open CHOLECYSTECTOMY COLONOSCOPY CORONARY ARTERY BYPASS GRAFT x4 CYST REMOVAL Back of neck ENDOSCOPY Procedure: ESOPHAGOGASTRODUODENOSCOPY W/ COLD BIOPSIES; With Litmus paper; Surgeon: Ubaldo Lucio MD; Location: [facility] ENDOSCOPY; Service: Gastroenterology LUNG BIOPSY PORTACATH PLACEMENT SINUS SURGERY SKIN BIOPSY (R) side of back @ DAK THORACOSCOPY VIDEO ASSISTED WITH LOBECTOMY VARICOSE VEIN SURGERY stripping of the right lower extremity. VASECTOMY VENOUS ACCESS DEVICE (PORT) INSERTION Procedure: INSERTION VENOUS ACCESS DEVICE LEFT SIDE; Surgeon: Yohannes Beauchamp MD; Location: [facility]; Service: Cardiothoracic; Laterality: N/A; fl-42 sec dose-6.37 mGy Tobacco use Social History Tobacco Use Smoking Status Former Packs/day: 1.00 Years: 40.00 Additional pack years: 0.00 Total pack years: 40.00 Types: Cigarettes Quit date: 2013 Years since quittin.8 Smokeless Tobacco Never Tobacco Comments with cessation, 07/15/2013 Family oncology history Cancer-related family history is negative for Colon cancer and Liver cancer. 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) 09/07/2021 Initial Diagnosis RUL adenocarcinoma Malignant neoplasm of upper lobe of right lung 09/14/2021 Initial Diagnosis Malignant neoplasm of lower lobe of lung, unspecified laterality (HCC) 10/07/2021 Cancer Staged Staging form: Lung, AJCC 8th Edition - Clinical: Stage IIIA (cT1b, cN2, cM0) - Signed by Wilmar Marshall MD on 10/07/2021 10/28/2021 - 11/30/2022 Chemotherapy OP CENTRAL VENOUS ACCESS DEVICE ACCESS, CARE, AND MAINTENANCE (CVAD) 10/29/2021 - 12/31/2021 Chemotherapy OP LUNG PEMEtrexed / CARBOplatin AUC=6 02/04/2022 - 01/23/2023 Biopsy OP LUNG Durvalumab Plan Provider: Wilmar Marshall MD Treatment goal: Curative Line of treatment: [No plan line of treatment] 02/08/2022 - 03/18/2022 Radiation Radiation OncologyTreatment Course: Cruz Wray received 5040 cGy in 28 fractions to right lung tumor bed via External Beam Radiation - EBRT. 06/13/2022 - Chemotherapy OP CVAD OCCLUSION - ALTEPLASE 12/12/2022 - Chemotherapy OP CENTRAL VENOUS ACCESS DEVICE Access, Care, and Maintenance (CVAD) Complications during Therapy: No concerns stated Modification to Treatment Plan: No Modifications Lifetime Dose Tracking No doses have been documented on this patient for the following tracked chemicals: Doxorubicin, Epirubicin, Idarubicin, Daunorubicin, Mitoxantrone, Bleomycin, Mitomycin, Doxorubicin Liposomal Treatment Summary Treatment goal Control Plan Name OP LUNG PEMEtrexed / CARBOplatin AUC=6 Status Inactive Start Date 10/29/2021 End Date 12/31/2021 Provider Wilmar Marshall MD Chemotherapy CARBOplatin (PARAPLATIN) 700 mg in sodium chloride 0.9 % 345 mL chemo IVPB, 700 mg, Intravenous, Once, 4 of 4 cycles Administration: 700 mg (10/29/2021), 580 mg (11/19/2021), 660 mg (12/10/2021), 590 mg (12/31/2021) PEMEtrexed (ALIMTA) 1,000 mg in sodium chloride 0.9 % 100 mL chemo IVPB, 970 mg, Intravenous, Once,4 of 4 cycles Administration: 1,000 mg (10/29/2021), 1,000 mg (11/19/2021), 1,000 mg (12/10/2021), 1,000 mg (12/31/2021) Response to treatment Treatment Summary Treatment goal [No plan goal] Plan Name OP CENTRAL VENOUS ACCESS DEVICE ACCESS, CARE, AND MAINTENANCE (CVAD) Status Inactive Start Date 10/28/2021 End Date 11/30/2022 Provider Talisha Ozuna APRN Chemotherapy [No matching medication found in this treatment plan] Response to treatment Treatment Summary Treatment goal [No plan goal] Plan Name OP CVAD OCCLUSION - ALTEPLASE Status Active Start Date 06/13/2022 End Date Until discontinued Provider Wilmar Marshall MD Chemotherapy [No matching medication found in this treatment plan] Response to treatment Treatment Summary Treatment goal [No plan goal] Plan Name OP CENTRAL VENOUS ACCESS DEVICE Access, Care, and Maintenance (CVAD) Status Active Start Date 12/12/2022 End Date Until discontinued Provider Wilmar Marshall MD Chemotherapy [No matching medication found in this treatment plan] Response to treatment Persistent Treatment-Associated Adverse Effects at Completion of Therapy It is important to recognize that not every person experiences the following adverse events after treatment. You may not have any of these issues, a few or many adverse effects. Experiences are highly variable. Please discuss any adverse effects of cancer treatment with your cancer care team. After Surgical Therapy No surgery performed. After Chemotherapy Chemotherapy travels throughout the body and can affect both cancer cells and normal, healthy cells. Damage to healthy cells can cause side effects. Every person doesn't get every side effect, and some people get few, if any. Many side effects go away fairly quickly after treatment ends, but some may take months or even years to completely go away. The time it takes to get over some side effects and get your energy back varies from person to person. It depends on many factors; including your overall health and the drugsyou were given. Some side effects can last a lifetime, such as when chemo causes long-term damage to the heart, lungs, kidneys, or reproductive organs. Certain types of chemo sometimes cause delayed effects, such as a second cancers that may show up many years later. Ask your doctor or nurse if youneed more information. After Radiation Therapy Radiation therapy can cause early and late side effects. Early side effects are those that happen during or shortly after treatment and are usually gone within a few weeks after treatment ends. Late side effects may take months or years to develop and vary depending on the areas of the body included in the field of radiation and the radiation techniques that were used. The most common early side effects are fatigue (feeling tired) and skin changes. Other early side effects are usually related to the area being treated. If you continue to have some skin problems after treatment ends, be gentle with the skin in the treatment area until all signs of irritation are gone and continue to care for your skin as your doctors and nurses have advised. If you continue to have fatigue, you may need to plan your activities to maximize energy, get extra rest while your bodyis still recovering and follow other instructions from your doctors and nurses such as exercise andactivity. senior care effects of radiation therapy vary greatly depending on the areas included in the field ofradiation and the radiation techniques that were used. Lung tissue exposed to radiation can developscarring (fibrosis), inflammation (pneumonitis) and other effects. Risk for these problems is increased with higher doses of radiation and radiation given in combination with certain chemotherapies (bleomycin, busulfan, BCNU and CCNU) and for those survivors who also had part of the lung surgicallyremoved (lobectomy). Ask your doctor about receiving an annual flu shot and the pneumococcal vaccine. Ask your doctors and nurses about the risk of long term care phlebotomist effects. Keep your follow up appointmentsand keep up with recommended health screenings. Other No PDT performed. Care of your Venous Access Device No Venous Access Device currently in place General After Cancer Treatment It is not uncommon for cancer to impact other areas of your life such as relationships, work and mental health. If you develop financial concerns, resources are sometimes available to assist in these areas. Depression and anxiety can present either during or after cancer diagnosis and treatment. It is important to discuss with your physician any of these concerns so these resources can be made available to you. General Cancer Support & Resources [facility] [address], [address] [place] [address] Med Onc: Driver Operator Onc: Reservations Sales Supervisor: Kaylee Galeano - Psychiatric Nurse Practitioner: Yoselin Schaefer APRN - [phone] Kick It! (A free smoking cessation program) Financial Counselor and Contact Information: [facility] - Retail Aide Contact Information: Mary Ann Cooper - [phone] Wound Ostomy & Continence Nurse: Local Cancer Support Group and Contact Information: Look Good Feel Better: A non-medical, brand-neutral public service program that teaches beauty techniques to people with cancer to help them manage the appearance-related side effects of cancer treatment. The program includes lessons on skin and nail care, cosmetics, wigs and turbans, accessories and styling, helping people with cancer to find some normalcy in a life. - See more at: http://lookgoodfeelbetter.org Journey Toward Empowerment - for Women with Cancer: ([facility]) The Tools and encouragement you need to live your life to the fullest. Free Dinner served @ 6:00pm followed by speaker from 6:30 - 7:30pm. The series runs from April, and meets monthly. Call Jasmin Cross RN, OCN @ to receive information and upcoming schedule. [facility]: This support group is open to anyone that has been diagnosed with cancer of any type. Meets at 6:30pm on the last Monday of each month. Location: [facility]; [address] [place] [address]. For more information call Justine Villarreal @ . Non-Small Cell Lung Cancer Surveillance Stage I-II (primary treatment included RT) or Stage III or IV (oligometastatic with all sites treated with definitive intent) with no evidence of clinical/radiographic disease How Frequent? Medical Oncology visits Every 3-6 months for 3 years, then every 6 months for 2 years, then annually Imaging exams Chest CT Scan +/- contrast Every 3-6 months for 3 years, then every 6 months for 2 years, then low-dose oca-hbigwytg-mxueyogi chest CT annually. Residual or new radiographic abnormalities may require more frequent imaging. Immunizations Influenza Herpes Zoster Pneumococcal Yearly Once As appropriate Tobacco Cessation The patient is not currently a tobacco user. Counseling given: Not Answered Tobacco comments: with cessation, 07/15/2013 Monitor for ongoing toxicities: None Specified Call your doctor if you have any of these signs or symptoms New or worsening symptoms. Pain that is new, unrelieved or bothersome. Physical problems that affect your abilities in your daily life or those that are bothersome (for example, continued fatigue, trouble sleeping, sexual problems, or edema). Referrals provided There are no referral needs at this time. Self Care Plan Self Care Plan: What You Can Do to Stay Healthy after Treatment for Cancer Cancer treatments may increase your chance of developing other health problems years after you havecompleted treatment. The purpose of this self care plan is to inform you about what steps you can take to maintain good health after cancer treatment. Keep in mind that every person treated for cancer is different and that these recommendations are not intended to be a substitute for the advice of a doctor or other health customer care manager. Please use these recommendations to talk with your health care provider about an appropriate follow up care plan for you. Surveillance for Your Cancer Recommendation Frequency Comments Cancer surveillance visit with medical provider that is focused on detecting signs of recurrence ofyour cancer. For additional information, visit www.livestrong.org or www.cancer.net/patient/Survivorship Frequency depends on type and stage of cancer you had. (If you had a higher risk cancer, you may be seen more often). Your doctor has provided you with a personalized cancer treatment summary and survivorship care plan. If you need another copy, ask your doctor. General Cancer Screening for Men Cancer screening tests are designed to find cancer or pre-cancerous areas before there are any symptoms and, generally, when treatments are most successful. Various organizations have developed guidelines for cancer screening for men. While these guidelines vary slightly between different organizations, they cover the same basic screening tests for prostate and colorectal cancers. In addition, during routine health examinations (at any age) your health care provider may also evaluate for cancers of the skin, mouth and thyroid. Not all screening tests are right for everyone. Your personal and family cancer history, and/or the presence of a known genetic predisposition, can affect which tests are right for you, and at what age you begin them. Therefore, you should discuss these with your health care provider. Your care plan will also include a section on follow up care foryour type of cancer, and these recommendations override the general screening recommendations for that particular type of cancer in the general population. The [employer] (ACS) recommends these screening guidelines for men: Recommendation Frequency Comments Colon and Rectal Cancer Screening For more information see the ACS document Colorectal Cancer: Early Detection. www.cancer.org/ssLINK/oxhrmpshxo-giyuxr-dqvxd-detection-denise Options for colon cancer screening can be divided into those that screen for both cancer and polyps, and those that just screen for cancer.Screening should begin at age 45 (unless you are considered high risk (see comments), using one of the following testing schedules: Tests that find polyps and cancer (Preferred over those that find cancer alone. If any of these tests are positive, a colonoscopy should be done.) Flexible sigmoidoscopy every five years, or Colonoscopy every 10 years, or Double-contrast barium enema every five years, or CT colonography (virtual colonoscopy) every five years Tests that primarily test for cancer Yearly fecal occult blood test (FOBT)*, or Yearly fecal immunochemical test (FIT) *, or Stool DNA test (sDNA), interval uncertain* * The multiple stool take-home test should be used. One test done by the doctor in the office is not adequate. A colonoscopy should be done if the test is positive. Talk with your doctor about your medical history, and what colorectal cancer screening test and schedule is best for you. Individuals at higher risk of colon cancer should have screening earlier and potentially more frequently. Those at higher risk of colon and rectal cancer: Individuals with a family history of colon or rectal cancer in a relative who was diagnosed before the age of 60 Individuals with a history of polyps Individuals with inflammatory bowel disease (Crohn's disease or ulcerative colitis) Individuals with a genetic predisposition to colon or rectal cancer, such as hereditary non-polyposis colon cancer (HNPCC) syndrome or familial adenomatous polyposis (FAP) syndrome Prostate Cancer Screening For more information, see the ACS Document Prostate Cancer Prevention and Early Detection: http://www.cancer.org/cancer/prostatecancer/moreinformation/prostatecancerearlyd etection/index Starting at age 50 (unless you are considered high risk ), men should talk to their doctor about the pros and cons of prostate cancer testing, and then decide if they want to be tested. Tests that can be used to detect for prostate cancer include Prostate-specific antigen (PSA) or digital rectal exam (SONYA). ndividuals are considered higher risk if they are and/or have a family history of prostate cancer. Those who are considered high risk should have this talk at age 40 or 45. Testicular Screening For more information, see the ACS Document Testicular Cancer Detection: http://www.cancer.org/cancer/testicularcancer/detailedguide/rhpteefnka-hvcsec-cv tection Men of any age can develop testicular cancer; however, about half of all cases occur in men between the ages of20 and 34. A testicular self- exam is recommended monthly after a man has gone through puberty. In doing so, danette should look and feel for any hard lumps, rounded bumps, or any change in the size, shape, or consistency of his testicles. If something appears abnormal, see a health care provider for further evaluation. Sun Exposure and Skin Cancer Risk Skin cancer is the most commonly diagnosed type of cancer, and rates are on the rise. However, thisis one cancer that in most cases can be prevented or detected early. While you may hear that you need the sun to make vitamin D, in reality you only need a few minutes a day to do this. Exposure to ultraviolet (UV) rays, either by natural sunlight or tanning beds, can lead to skin cancer. In additio n, UV rays lead to other forms of skin damage, including wrinkles, loss of skin elasticity, dark patches (sometimes called age spots or liver spots), and pre- cancerous skin changes (such as dry, scaly, rough patches). Although dark- skinned people are less likely to develop skin cancer, they can anddo develop skin cancers, most often in areas that are not exposed to sun (on the soles of the feet,under nails, and genitals). You can do a lot to protect yourself from damaging UV rays and to detect skin cancer early. Start by practicing sun safety, including using a broad spectrum sunscreen (which protects against UVA and UVB rays) with an SPF of at least 30 every day, avoiding peak sun times (10 a.m. to 4 p.m., when therays are strongest) and wearing protective clothing such as hats, sunglasses and long- sleeved shirts. Examine your skin regularly so you become familiar with any moles or birthmarks. If a mole has changed in any way, you should have a health care provider examine the area. This includes a change in size, shape or color; the development of scaliness, bleeding, oozing, itchiness or pain; or the development of a sore that will not heal. If you have a lot of moles, it may be helpful to make note of moles using photographs or a mole map . For a guide to performing a skin exam, visit www.skincarephysicians.com/skincancernet/skin_examinations.html. Healthy Lifestyle For some cancer survivors, the experience is the motivation to making healthy lifestyle changes. Itmay seem insignificant, but these changes have been shown to reduce the risk of the cancer coming back or a new cancer developing. Below are some tips on adopting a healthier lifestyle. Maintaining ahealthy weight is important in cancer prevention, as is physical activity and eating a healthy diet. Strive to incorporate all three pieces of the puzzle: healthy weight, balanced diet and regular exercise. Recommendation Goal Comments Maintain a healthy weight. For more information, visit http://www.nhlbi.nih.gov/health/public/heart/obesity/lose_wt/index.htm www.win.niddk.nih.gov Call the [employer] Association Talk to your health care team about what a healthy weight is for you, and take stepsto reach and maintain that weight. For many people reaching their ideal weight can be a challenge; however, losing even 5 to 10 poundscan lower blood pressure, blood sugar and cholesterol levels. Weigh yourself weekly to monitor for weight gain/loss Being overweight can increase your chance of your cancer coming back. Maintaining a healthy weight, physical activity and eating a healthy diet are all important in cancer prevention. Being overweight can increase your chance of having high blood pressure, high blood sugar and/or high cholesterol, which can lead to heart disease, diabetes and stroke. If you would like more information about your blood sugar, cholesterol or blood pressure, talk with your primary care provider. Eat a healthy diet, mostly from plant sources. For more information, visit http://www.choosemyplate.gov/food-groups/ Eat healthy, including plenty of fruits and vegetables daily. Drink more water, less soda and juice. Limit how much alcohol you drink (if you drink at all). Strive to have two- thirds of your plate be vegetables, fruits, whole grains and beans, while one- third or less should be an animal product. Choose fish and chicken and limit red meat and processed meats. Limit intake of alcohol to two drinks per day. Exercise. To learn more about recommendations for diet, activity and weight, visit AICR???s Guidelines for Survivors http://preventcancer.aicr.org/site/PageServer?pagename=patients_survivors_guidel lauren ACS Eat Healthy and Get Active www.cancer.org/Healthy/EatHealthyGetActive/index Experts recommend at least 30 minutes of bpeonsds-fq-nubngrxq activity per day, five days a week. Research shows that exercise can help you control your weight, improve your energy level, and help you sleep at night. The dacosta is to find a physical activity you enjoy such as walking, dancing or gardening and do it regularly. If you have been inactivefor a while, start out slowly. You can start out by exercising 10 minutes a day several days a week. If you feel dizzy, short of breath, or have chest pain during exercise, stop exercising and talk with your primary care doctor. Do not use tobacco in any form. For more information, visit http://www.cdc.gov/tobacco/campaign/tips/ If you use tobacco, quit as soon as possible. Smoking is the most preventable cause of in the [place] If you would like more information, ask your doctor or you can call a national hotline at 9(470)-QUIT-NOW. Have regular check-ups by a healthcare professional. For more information about healthy screening tests for men visit the [place].S. Department of Health and Human Services. http://www.womenshealth.gov/mpzrjqdos-rnesq-snx-vaccines/ktudowckt-dbahd-gxo-men / For more information about adult vaccinations visit the CDC: http://www.cdc.gov/vaccines/recs/schedules/adult-schedule.htm Keep up-to-date on general health screening tests, including cholesterol, blood pressure and glucose (blood sugar) levels. Get an annual influenza vaccine (flu shot). Get vaccinated with the pneumococcal vaccine, which prevents a type of pneumonia, and re-vaccinatedas determined by your health care team. Don???t forget dental and eye health! The [employer] recommends adults have their eyes examined every two years until age 60, then annually. People who wear glasses or correctivelenses or are at high risk for eye problems (i.e., diabetics, family history of eye disease) shouldbe seen more frequently. The [employer] recommends adults see their dentist at least once a year. [facility] [address] [facility] [address] [facility] [id number] Resolved Problems Problem Noted Date Diagnosed Date Resolved Date Lung nodule seen on imaging study 09/25/2020 07/14/2021 DINA on CPAP 05/31/2021 Overview (07/08/2016): severe
[2025-04-08 10:15] LABS: Hematocrit 47.4 % (42.0-52.0); Hemoglobin 15.2 g/dL (14.1-18.0); Immature Granulocytes % 0.2 %; Mean Corpuscular HGB Conc 32.1 g/dL (31.8-35.4); Mean Corpuscular Hemoglobin 32.1 pg (27.0-31.2); Mean Corpuscular Volume 100.0 fl (80-94); Nucleated Red Blood Cells % 0 %; Platelet Count 175 K/mm3 (142-424); Red Blood Count 4.74 M/mm3 (4.60-6.20); Red Cell Distribution Width-SD 53.5 fL; White Blood Count 6.1 K/mm3 (4.8-10.8)
[2025-04-08 10:46] LABS: Alanine Aminotransferase 26 U/L (12-78); Albumin Level 3.9 g/dl (3.5-5.0); Albumin/Globulin Ratio 1.4 (1.1-1.8); Alkaline Phosphatase 90 U/L (38-126); Aspartate Amino Transferase 42 U/L (17-59); Bilirubin,Direct 0.3 mg/dl (0.0-0.4); Bilirubin,Indirect 0.7 mg/dL (0.0-0.9); Bilirubin,Total 1.0 mg/dl (0.2-1.3); Bilirubin,Unconjugated 0.7 mg/dL (0.0-1.1); Blood Urea Nitrogen 21 mg/dl (9-20); Calcium 9.6 mg/dl (8.4-10.2); Carbon Dioxide 33 mmol/L (22.0-30.0); Cholesterol 108 mg/dl (140-200); Creatinine,Serum 1.00 mg/dl (0.66-1.25); Estimated Glomerular Filt Rate 73 ml/min (>60); GFR (African American) 88 ML/MIN (>60); Globulin 2.8 g/dL (1.3-3.2); Glucose 110 mg/dl (74-100); HDL Cholesterol 28 mg/dl (40-60); Total Protein,Serum 6.7 g/dl (6.3-8.2); Triglycerides 133 mg/dl (30-150)
[2025-04-08 10:58] LABS: Anion Gap 12.0 mEq/L (5-15); Chloride 98 mmol/L (98-107); Potassium 5.0 mmoL/L (3.5-5.1); Sodium 138 mmol/L (136-145)
== END 2025-04-08 23:59 | disposition home or self-care (01) ==
LOC: LAB 09:41
PROVIDERS: PCP Family Medicine; Visit Provider Nurse Practitioner
DX: I50.20 Unspecified systolic (congestive) heart failure (principal); I25.10 Atherosclerotic heart disease of native coronary artery without angina pectoris
CPT/HCPCS: 36415; 80053; 80061; 82248; 85025